=== PATIENT | male | born 1970 | race Two or more races ===

== ENCOUNTER 2020-07-07 12:45 | Outpatient (CLI) | payer MEDICARE, OTHER ==
[2020-07-07] MEDS ORDERED: COLLAGENASE 5 GM TUBE UD TP ONE (13:31)
== END 2020-07-07 23:59 | disposition home or self-care (01) ==
LOC: WOU 12:45
PROVIDERS: ATTEND Podiatrist Foot & Ankle Surgery
DX: E11.621 Type 2 diabetes mellitus with foot ulcer (principal); L97.513 Non-pressure chronic ulcer of other part of right foot with necrosis of muscle; E11.42 Type 2 diabetes mellitus with diabetic polyneuropathy; E11.69 Type 2 diabetes mellitus with other specified complication; M86.171 Other acute osteomyelitis, right ankle and foot; Z79.4 Long term (current) use of insulin
CPT/HCPCS: 11043; 11046; G0463

== ENCOUNTER 2020-07-14 12:30 | Outpatient (CLI) | payer MEDICARE, OTHER ==
[2020-07-14] MEDS ORDERED: COLLAGENASE 5 GM TUBE UD TP ONE (13:31)
== END 2020-07-14 23:59 | disposition home or self-care (01) ==
LOC: WOU 12:30
PROVIDERS: ATTEND Podiatrist Foot & Ankle Surgery
DX: E11.622 Type 2 diabetes mellitus with other skin ulcer (principal); L97.313 Non-pressure chronic ulcer of right ankle with necrosis of muscle; E11.621 Type 2 diabetes mellitus with foot ulcer; L97.413 Non-pressure chronic ulcer of right heel and midfoot with necrosis of muscle; E11.42 Type 2 diabetes mellitus with diabetic polyneuropathy; E11.69 Type 2 diabetes mellitus with other specified complication; M86.171 Other acute osteomyelitis, right ankle and foot; Z79.4 Long term (current) use of insulin
CPT/HCPCS: 11043; 11046; A6253

== ENCOUNTER 2020-07-21 13:30 | Outpatient (CLI) | payer MEDICARE, OTHER ==
[2020-07-21] MEDS ORDERED: COLLAGENASE 5 GM TUBE UD TP ONE (14:09)
[2020-07-21] MEDS ORDERED: DOCU-141 PO (16:42)
[2020-07-21] MEDS ORDERED: SITA100T PO (16:42)
[2020-07-21] MEDS ORDERED: METF-440 PO (16:42)
[2020-07-21] MEDS ORDERED: CHOL100045 PO (16:42)
[2020-07-21] MEDS ORDERED: PANT20TA2 PO (16:42)
[2020-07-21] MEDS ORDERED: ASCO500C17 PO (16:42)
[2020-07-22] MEDS ORDERED: INSU100V7 SQ (12:34)
[2020-07-22] MEDS ORDERED: EMPA10TA PO (12:34)
[2020-07-23] MEDS ORDERED: FENTANYL PF 100MCG/2ML AMPUL ONE (07:05)
[2020-07-27] MEDS ORDERED: Linezolid PO (12:43)
[2020-07-27] MEDS ORDERED: HYDR-3972 PO (12:43)
[2020-07-27] MEDS ORDERED: ACET325T53 PO (12:43)
[2020-07-27] MEDS ORDERED: PANT40TA2 PO (12:43)
== END 2020-07-21 23:59 | disposition home or self-care (01) ==
LOC: WOU 13:30
PROVIDERS: ATTEND Podiatrist Foot & Ankle Surgery
DX: E11.622 Type 2 diabetes mellitus with other skin ulcer (principal); L97.313 Non-pressure chronic ulcer of right ankle with necrosis of muscle; E11.621 Type 2 diabetes mellitus with foot ulcer; L97.413 Non-pressure chronic ulcer of right heel and midfoot with necrosis of muscle; E11.42 Type 2 diabetes mellitus with diabetic polyneuropathy; E11.69 Type 2 diabetes mellitus with other specified complication; M86.171 Other acute osteomyelitis, right ankle and foot; Z79.4 Long term (current) use of insulin; Z86.16 Personal history of COVID-19
CPT/HCPCS: 11042; 11045; J3010

== ENCOUNTER 2020-07-21 14:44 | Inpatient (IN) | payer MEDICARE, OTHER ==
[~2020-07-21] VITALS: Ht 170.2 cm; Wt 58.1 kg
[2020-07-21] MEDS ORDERED: VANCOMYCIN 1 GM in IV D5W 250 ML IV ONE (16:00)
[2020-07-21] MEDS ORDERED: CLINDAMYCIN 900 MG in IV D5W 50 ML IV ONE (16:00)
[2020-07-21 16:22] LABS: BASOPHILS # (AUTO) 0.1 /CMM (0.0-0.2); BASOPHILS % (AUTO) 0.7 % (0.0-2.0); EOSINOPHILS % (AUTO) 3.9 % (0.0-6.0); HEMATOCRIT 43 % (39-51); HEMOGLOBIN 14.4 g/dL (13.5-17.5); LYMPHOCYTES # (AUTO) 1.7 /CMM (0.8-4.8); LYMPHOCYTES % (AUTO) 21.7 % (20.0-44.0); MEAN CORPUSCULAR HGB CONC 34 g/dl (31.0-36.0); MEAN CORPUSCULAR VOLUME 84 fL (80-96); MONOCYTES # (AUTO) 0.5 /CMM (0.1-1.30); MONOCYTES % (AUTO) 6.7 % (2.0-12.0); NEUTROPHILS # (AUTO) 5.2 /CMM (1.8-8.9); PLATELET COUNT (AUTO) 367 /CMM (150-450); RED BLOOD CELL COUNT(AUTO) 5.08 MIL/uL (4.5-6.0); WHITE BLOOD COUNT (AUTO) 7.7 K/uL (4.3-11.0)
--- NOTE | 2020-07-21 16:32 | NUR ---
SENT BY DR. FOWLER WOUND MD FOR IV ATB AND WOUND BIOPSY. TO ER BED 7. AAOX4. NOT IN RESP DISTRESS. NOTED WOUND ON R FOOT DORSAL TO LATERAL ASPECT WITH RED GRANULATED TISSUE AND SLOUGH. NOTED PERIWOUND REDNESS. MD WAS AT THE BEDSIDE FOR EVAL. ORDERS RECEIVED, NOTED AND CARRIED OUT
[2020-07-21 16:41] LABS: ALANINE AMINOTRANSFERASE 27 U/L (12-78); ALBUMIN 3.6 g/dL (3.4-5.0); ALKALINE PHOSPHATASE 133 U/L (46-116); ASPARTATE AMINOTRANSFERASE 15 U/L (15-37); BILIRUBIN,DIRECT 0.1 mg/dL (0.0-0.2); BILIRUBIN,TOTAL 0.3 mg/dL (0.2-1.0); CALCIUM, SERUM 9.8 mg/dL (8.5-10.1); CARBON DIOXIDE 31 mmol/L (21-32); CHLORIDE 101 mmol/L (98-107); CREATININE 0.9 mg/dL (0.6-1.3); GLUCOSE 171 mg/dL (74-106); POTASSIUM 4.2 mmol/L (3.5-5.1); SODIUM SERUM 137 mmol/L (136-145); TOTAL PROTEIN, SERUM 8.8 g/dL (6.4-8.2); UREA NITROGEN, BLOOD 19 mg/dL (7-18)
[2020-07-21] MEDS ORDERED: CHOL100045 PO (16:42)
[2020-07-21] MEDS ORDERED: ASCO500C17 PO (16:42)
[2020-07-21] MEDS ORDERED: SITA100T PO (16:42)
[2020-07-21] MEDS ORDERED: METF-440 PO (16:42)
[2020-07-21] MEDS ORDERED: DOCU-141 PO (16:42)
[2020-07-21] MEDS ORDERED: PANT20TA2 PO (16:42)
[2020-07-21] MEDS: AZTREONAM 1 G in IV NS 0.9% 100 ML IV ONE ×2 (17:00→17:45)
--- NOTE | 2020-07-21 17:45 | NUR ---
LAB CALLED PT COVID RESULT NEGATIVE (-)
--- NOTE | 2020-07-21 18:15 | NUR ---
GOT BED 311-1
[2020-07-21] MEDS ORDERED: MAG HYDROX/AL HYDROX/SIMETH 30 ML UDC PO PRN (18:30)
[2020-07-21] MEDS ORDERED: MORPHINE SULFATE INJ 2 MG/ML DISP.SYRIN IV PRN (18:30)
[2020-07-21] MEDS ORDERED: MAGNESIUM HYDROXIDE 30 ML UDC PO PRN (18:30)
[2020-07-21] MEDS ORDERED: ACETAMINOPHEN 325 MG TABLET PO PRN (18:30)
[2020-07-21] MEDS ORDERED: HYDROCODONE/APAP 5/325MG TABLET PO PRN (18:30)
[2020-07-21] MEDS ORDERED: Z GUARD REMEDY 2 OZ OINT TP PRN (18:30)
[2020-07-21] MEDS ORDERED: ZOLPIDEM TARTRATE 5 MG TABLET PO PRN (18:30)
[2020-07-21] MEDS ORDERED: ONDANSETRON HCL/PF 4 MG/2 ML VIAL IVP PRN (18:30)
--- NOTE | 2020-07-21 18:35 | NUR ---
ROHAN GIVEN TO GABY ESTRADA FOR ROBERTO
--- NOTE | 2020-07-21 19:05 | NUR ---
MS RN OPENING NOTES: PATIENT ARRIVED ON THE FLOOR FROM ER, AWAKE, A/O X4. NO S/S OF DISTRESS NOTED. CALL LIGHT WITHIN REACH, INSTRUCTED TO CALL FOR ASSISTANCE AND ANY HELP, PATIENT VERBALIZED UNDERSTANDING. BED ALARM ON. BED IN LOWEST AND LOCKED POSITION. NO COMPLAIN OF PAIN. PATIENT REMOVED THE DRESSING ON THE RIGHT FOOT WOUND. WALKER PROVIDED AT THE BEDSIDE PER PATIENT'S REQUEST, INSTRUCTED THE PATIENT TO CALL FOR ASSISTANCE WHEN GETTING OUT OF BED TO THE BATHROOM, VERBALIZED UNDERSTANDING AND PATIENT STATES HE WILL CALL.
--- NOTE | 2020-07-21 19:09 | NUR ---
PT TRANSPORTED TO UNIT ON [facility] WITH EMT AT BEDSIDE. PT IS IN STABLE CONDITION FOR TRASNPORT.
[2020-07-21 20:00] VITALS: BP 115/75
[2020-07-22] MEDS ORDERED: ZOSYN IVPB 3.375 G in IV D5W 50ml IV SCH
[2020-07-22] MEDS: VANCOMYCIN 1 GM in IV D5W 250 ML IV SCH ×3 (04:45→12:17)
--- NOTE | 2020-07-22 05:09 | NUR ---
patient refused the vanco IV after it was started, advised patient the importance of the medication.
--- NOTE | 2020-07-22 06:20 | NUR ---
MS RN CLOSING NOTES: PATIENT IN BED, AWAKE, A/O X4. NO S/S OF DISTRESS NOTED. CALL LIGHT WITHIN REACH. BED ALARM ON. BED IN LOWEST AND LOCKED POSITION. RESTED THROUGHOUT THE NIGHT.
[2020-07-22 07:32] LABS: BASOPHILS % (AUTO) 0.7 % (0.0-2.0); EOSINOPHILS % (AUTO) 3.9 % (0.0-6.0); HEMATOCRIT 42 % (39-51); HEMOGLOBIN 14.2 g/dL (13.5-17.5); LYMPHOCYTES # (AUTO) 1.2 /CMM (0.8-4.8); LYMPHOCYTES % (AUTO) 17.1 % (20.0-44.0); MEAN CORPUSCULAR HGB CONC 34 g/dl (31.0-36.0); MEAN CORPUSCULAR VOLUME 82 fL (80-96); MONOCYTES # (AUTO) 0.5 /CMM (0.1-1.30); MONOCYTES % (AUTO) 6.3 % (2.0-12.0); NEUTROPHILS # (AUTO) 5.2 /CMM (1.8-8.9); PLATELET COUNT (AUTO) 308 /CMM (150-450); RED BLOOD CELL COUNT(AUTO) 5.13 MIL/uL (4.5-6.0); WHITE BLOOD COUNT (AUTO) 7.3 K/uL (4.3-11.0)
[2020-07-22 07:44] LABS: CALCIUM, SERUM 8.9 mg/dL (8.5-10.1); CREATININE 0.6 mg/dL (0.6-1.3); MAGNESIUM 2.1 mg/dL (1.8-2.4); PHOSPHORUS 4.5 mg/dL (2.5-4.9)
[2020-07-22 08:00] VITALS: BP 113/59
[2020-07-22 08:06] LABS: THYROID STIMULATING HORMONE 2.138 uIU/mL (0.358-3.74)
[2020-07-22] MEDS: PANTOPRAZOLE 40 MG TABLET.DR PO SCH (08:30)
[2020-07-22] MEDS: MUPIROCIN OINT 2% 22 GM TUBE TP SCH ×2 (08:59→21:17)
--- NOTE | 2020-07-22 10:43 | NUR ---
RECEIVED ORDERS FROM DR ALDANA FOR ACCU-CHEKS ACHS AND INSULIN MODERATE SLIDING SCALE. ORDERS READ BACK AND CARRIED OUT. WILL CONTINUE WITH PLAN OF CARE
[2020-07-22] MEDS ORDERED: DEXTROSE 50%-WATER 50 ML DISP.SYRIN IV PRN (11:00)
--- NOTE | 2020-07-22 11:22 | NUR ---
MS RN OPENING NOTES RECEIVED PT AWAKE IN BED AT THIS TIME. A/O X4, PT ABLE TO MAKE NEEDS KNOWN, NO SOB NOTED, BREATHING EVEN AND UNLABORED. NO C/O PAIN AT THIS TIME. NO S/O ANY ACUTE DISTRESS NOTED. PT STABLE ON RA. IV ACCESS NOTED IN LAC G#18, INTACT PATENT AND FLUSHING WELL. SAFETY PRECAUTION IN PLACE AND MAINTAINED AT ALL TIMES. BED IN LOWEST LOCKED POSITION, HOB ELEVATED, SIDE RAILS UPX2, CALL LIGHT AND TABLE WITHIN REACH. WILL CONTINUE TO MONITOR
[2020-07-22] MEDS ORDERED: BLOOD SUGAR DIAGNOSTIC 1 EACH STRIP VI SCH (12:00)
[2020-07-22] MEDS: BLOOD SUGAR DIAGNOSTIC 1 EACH STRIP IN SCH ×3 (12:17→21:14)
[2020-07-22] MEDS: INSULIN REGULAR, HUMAN 100 UNIT/ML 3 ML VIAL SQ PRN (12:22)
--- NOTE | 2020-07-22 12:26 | NUR ---
PT REFUSED VANCOMYCIN AFTER IT WAS CONSTITUTED STATING " I DO NOT LIKE HOW I FEEL AFTER TAKING VANCOMYCIN". PT EDUCATION PROVIDED ON THE BENEFITS AND RISK OF DENYING TREATMENT FOR MEDICAL PURPOSE. WILL CONTINUE TO MONITOR
[2020-07-22] MEDS ORDERED: INSU100V7 SQ (12:34)
[2020-07-22] MEDS ORDERED: EMPA10TA PO (12:34)
--- NOTE | 2020-07-22 15:07 | NUR ---
ARYAN ([phone]), PT'S SISTER CALLED AND WAS UPDATED ON PT'S STATUS, WILL CONTINUE TO MONITOR
--- NOTE | 2020-07-22 15:09 | NUR ---
PT NOTIFIED NURSE AT THIS TIME THAT WHEN HE TAKES VANCOMYCIN, IT CAUSES CHEST PAIN AND GENERALIZED BURNING SENSATION. DR ALDANA MADE AWARE, PHARMACY AWARE, AWAITING ORDERS. WILL CONTINUE TO MONITOR
[2020-07-22] MEDS: LINEZOLID 600 MG TABLET PO SCH ×2 (15:28→23:48)
--- NOTE | 2020-07-22 16:59 | NUR ---
ARYAN ([phone]), PT'S SISTER CALLED REQUESTING TO SPEAK WITH DR ALADNA FOR INFECTIOUS DISEASE FOLLOW UP, DR ALDANA MADE AWARE. WILL CONTINUE TO MONITOR
[2020-07-22] MEDS: *INSULIN REGULAR(HUMULIN R)HUM 100 UNIT/ML VIAL SQ PRN ×2 (17:55→21:27)
--- NOTE | 2020-07-22 18:47 | NUR ---
RN CLOSING NOTES PT AWAKE IN BED AT THIS TIME. PT REMAINED STABLE THROUGHOUT SHIFT. ALL CARE, NEEDS, MEDICATIONS AND TREATMENT ADMINISTERED ANTICIPATED PER ORDER. WOUND TREATMENT ADMINISTERED PER ORDER. PT MOTIVATED TO SELF CARE. SAFETY AND ASPIRATION PRECAUTIONS MAINTAINED AT ALL TIMES. BED IN LOWEST LOCKED POSITION, HOB ELEVATED, SIDE RAILS UPX2, CALL LIGHT AND TABLE WITHIN REACH. WILL ENDORSE TO GI ASST NURSE FOR ROBERTO
--- NOTE | 2020-07-22 19:30 | NUR ---
MS RN OPENING NOTE RECEIVED PATIENT IN BED. A/OX4. TOLERATING ROOM AIR. RESPIRATIONS ARE EVEN AND UNLABORED. NO S/S SOB NOTED. NO C/O PAIN AT THIS TIME. IN NO APPARENT DISTRESS. IV ACCESS IN LAC#18 PATENT AND SALINE LOCKED. INFORMED PATIENT ABOUT PROCEDURE FOR DEBRIDEMENT, OBTAINED SIGNED CONSENTS. BED IS LOW AND LOCKED, HOB ELEVATED IN SEMI FOWLERS, SIDE RAILS UP X2, CALL LIGHT WITHIN REACH. WILL CONTINUE TO MONITOR.
[2020-07-22 20:00] VITALS: BP 109/64
--- NOTE | 2020-07-23 | NUR ---
MS RN NOTE INFORMED PATIENT THEY ARE NOW NPO. REMOVED ALL FOOD AND DRINK FROM BED SIDE. PATIENT ACKNOWLEDGED.
[2020-07-23] MEDS: BLOOD SUGAR DIAGNOSTIC 1 EACH STRIP IN SCH ×4 (06:24→21:45)
--- NOTE | 2020-07-23 06:25 | NUR ---
ms rn note patient accucheck reads bloos sugar 253 - no insulin coverage given d/t patient npo for surgery this morning. will inform SERVICE CREW LEADER
[2020-07-23] MEDS ORDERED: BUPIVACAINE 0.5 % PF 150 MG/30 ML VIAL ONE (06:28)
[2020-07-23] MEDS ORDERED: LIDOCAINE HCL/MPF 1% 30 ML VIAL IJ ONE (06:28)
[2020-07-23] MEDS ORDERED: ANESTHESIA TRAY IN PYXIS 1 EA TRAY MC ONE (06:28)
--- NOTE | 2020-07-23 06:42 | NUR ---
MS RN CLOSING NOTE PATIENT RESTING IN BED. A/OX4. TOLERATING ROOM AIR. NO RESP DISTRESS. NO C/O PAIN. NO DISTRESS. IV ACCESS MAINTAINED IN LAC#18. BED REMAINS LOW AND LOCKED, HOB ELEVATED IN SEMI FOWLERS, SIDE RAILS UP X2, CALL LIGHT WITHIN REACH. WILL ENDORSE TO ONCOMING SHIFT.
--- NOTE | 2020-07-23 06:47 | NUR ---
MS RN NOTE PER ANESTHESIOLOGIST RICHIE WEN, INFORMED HIM PATIENTS BLOOD SUGAR IS 253 AND PER SLIDING SCALE PATIENT WOULD RECEIVE 9 UNITS. ANESTHESIOLOGIST STATED TO GIVE 5 UNITS NOW AND DO NOT LET PATIENT EAT. HAVE O.R. STAFF TAKE PATIENT TO OR AND THEY WILL REASSESS BLOOD SUGAR IN ONE HOUR.
[2020-07-23] MEDS: INSULIN REGULAR, HUMAN 100 UNIT/ML 3 ML VIAL SQ PRN ×3 (06:52→21:53)
--- NOTE | 2020-07-23 06:55 | NUR ---
MS RN NOTE PATIENT WENT DOWN TO SURGERY WITH OR STAFF. A/OX4. TOLERATING ROOM AIR. NO RESP DISTRESS. IV ACCESS IN LAC#20 PATENT AND SALINE LOCKED. WILL ENDORSE TO ONCOMING SHIFT.
[2020-07-23] MEDS ORDERED: POLYMYXIN B SULFATE 0 UNITS ONE (07:20)
[2020-07-23] MEDS ORDERED: CLINDAMYCIN 900 MG/6 ML VIAL ONE (07:22)
[2020-07-23] MEDS: PANTOPRAZOLE 40 MG TABLET.DR PO SCH (07:30)
[2020-07-23 08:00] VITALS: BP 116/81
[2020-07-23 08:48] VITALS: BP 116/81
--- NOTE | 2020-07-23 08:48 | NUR ---
MS RN NOTES PATIENT CAME BACK FROM OPERATING REPORT GIVEN BY MAX GRIFFIN , NO ACUTE DISTRESS NOTED, BREATHING UNLABORED, VITAL SIGNS STABLE. DENIED PAIN AT THIS TIME. ALERT ORIENTED X 4. RIGHT LOWER EXTREMITY SURGICAL DRESSING WITH ADELE WRAP CLEAN, DRY AND INTACT. WILL CONTINUE TO MONITOR
--- NOTE | 2020-07-23 08:49 | NUR ---
MS RN NOTES RECEIVED NEW ORDER FROM BERNADETTE PATEL TO RESUME MEDECATIONS/DIET, LEAVE DRESSING INTACT,NON WEIGHT BEARING ON RIGHT LOWER EXTREMITY, ORDER TIFFANY READ BACK WITH MD, NOTED CARRIED OUT
[2020-07-23 09:03] VITALS: BP 122/76
[2020-07-23 09:18] VITALS: BP 133/75
--- NOTE | 2020-07-23 09:49 | NUR ---
MS RN NOTES PATIENT VITAL SIGNS REMAIN STABLE. WILL CONTINUE TO MONITOR
[2020-07-23] MEDS: LINEZOLID 600 MG TABLET PO SCH ×2 (09:59→21:44)
[2020-07-23] MEDS: MUPIROCIN OINT 2% 22 GM TUBE TP SCH ×2 (09:59→21:00)
--- NOTE | 2020-07-23 10:00 | NUR ---
MS RN NOTES NOTIFIED DR YORK MEDICATION RECONCILIATION NEEDS DONE
[2020-07-23] MEDS ORDERED: CIPROFLOXACIN HCL 500 MG TABLET PO SCH (14:00)
--- NOTE | 2020-07-23 15:12 | NUR ---
MS RN NOTES PER PATIENT LAST TIME HE TOOK FLAGYL BY MOUTH HE HAD DIARRHEA AND UPSET STOMACH, NOTIFIED DR NIKKI DIAS SAID IT'S OK TO GIVE FLAGYL IV. NO NEW ORDER MADE AT THIS TIME. TOLD PATIENT WHAT DR DIAS SAID, HE AGREED TO TAKE FLAGYL IV.
[2020-07-23] MEDS: METRONIDAZOLE 500MG/ NS 100ML 500 MG in PREMIX 1 EA IV SCH ×2 (15:25→21:00)
[2020-07-23 16:00] VITALS: BP 120/74
--- NOTE | 2020-07-23 16:00 | NUR ---
MS RN NOTES FOLLOW UP WITH DR YORK RECARDING MEDICATION RECONCILIATION NEEDS DONE , MENTIONED PATIENT ON DIABETIC MEDICATIONS, SHE SAID SHE WILL DO IT.
[2020-07-23] MEDS: LEVOFLOXACIN 500 MG /D5W 100ML 500 MG in PREMIX 1 EA IV SCH (16:42)
[2020-07-23] MEDS: *INSULIN REGULAR(HUMULIN R)HUM 100 UNIT/ML VIAL SQ PRN ×2 (18:02→22:05)
--- NOTE | 2020-07-23 18:02 | NUR ---
MS RN NOTES PATIENT REFUSED INSULIN DESPITE OF EXPLANATION OF RISKS AND BENEFITS
--- NOTE | 2020-07-23 18:30 | NUR ---
MS RN NOTES NO DIARRHEA NOTED AND NO COMPLAINT OF ANY PAIN OR STOMACH PAIN.
--- NOTE | 2020-07-23 19:00 | NUR ---
MS RN NOTES PATIENT IN BED ALERT ORIENTED X 4. NO ACUTE DISTRESS NOTED. BREATHING UNLABORED. DENIED ANY PAIN. VITAL SIGN STABLE THROUGHOUT THE SHIFT. REMAIN IV ACCESS PATENT AND INTACT, NO BLEEDING . NO SWELLING NOTED. RIGHT LOWER EXTREMITY DRESSING CLEAN DRY AND INTACT . NEEDS ATTENDED AND ANTICIPATED. SAFETY MEASURES IN PLACE. CALL LIGHT WITHIN REACH. WILL ENDORSE TO NIGHT NURSE FOR CONTINUITY OF CARE.
--- NOTE | 2020-07-23 19:30 | NUR ---
MS RN OPENING NOTE RECEIVED PATIENT IN BED. A/OX4. TOLERATING ROOM AIR. RESPIRATIONS ARE EVEN AND UNLABORED. NO S/S SOB NOTED. NO C/O PAIN AT THIS TIME. IN NO APPARENT DISTRESS. IV ACCESS IN LAC#18 PATENT AND SALINE LOCKED. BED IS LOW AND LOCKED, HOB ELEVATED IN SEMI FOWLERS, SIDE RAILS UP X2, CALL LIGHT WITHIN REACH. WILL CONTINUE TO MONITOR.
--- NOTE | 2020-07-23 19:55 | NUR ---
MS RN NOTE SPOKE WITH PATIENT SISTER ARYAN ABOUT PATIENT MEDICATIONS, CURRENT MEDS AND ABOUT MEDICATION RECON. RN YOSELIN SCOTT AWARE OF FAMILYS UNSATISFIED. DR. ALDANA MADE AWARE TO COMPLETE MED RECON. ED RCON COMPLETED. FAMILY DOES WISH TO SPEAK WITH INFECTIOUS DISEASE DOCTOR. WILL INFORM MORNING SHIFT.
[2020-07-23 20:00] VITALS: BP 119/74
[2020-07-23] MEDS: INSULIN GLARGINE, 100 UNIT/ML CARTRIDGE SQ SCH (21:52)
--- NOTE | 2020-07-23 21:54 | NUR ---
MS RN NOTE PATIENT REFUSED FLAGYL TONIGHT. STATES IT GIVES HIM DIARRHEA. DOES NOT WANT IT TO BE ADMINISTERED AND WANTS TO SPEAK WITH THE INFECTIOUS DISEASE DOCTOR. WILL INFORM AM SHIFT THAT PATIENT WANTS TO SPEAK WITH ID. WAS NOT BRII TO ADMINISTER BACTROBAN TOPICAL TREATMENT FOR PATIENTS HEEL WOUND. PATIENT IS S/P WOUND DEBRIDEMENT AND MD ORDER TO KEEP DRESSING INTACT.
--- NOTE | 2020-07-23 22:06 | NUR ---
MS RN NOTE PATIENT REFUSED 6 UNITS REGULAR INSULIN FOR BLOOD SUGAR 234. HE STATES THAT HE ONLY WANTS TO FOLLOW WHAT HIS DIABETIC DOCTOR PRESCRIBED HIM WHICH IS TO ONLY TAKE 6 UNITS IN THE MORNING, 6 UNITS AT DINNER AND 25 UNITS LANTUS. HE ALSO TAKES METFORMIN. INFORMED IM ABOUT SLIDING SCALE BUT PATIENT WISHES TO SPEAK WITH DOCTOR. WILL INFORM AM SHIFT.
[2020-07-24] MEDS: METRONIDAZOLE 500MG/ NS 100ML 500 MG in PREMIX 1 EA IV SCH ×3 (05:00→21:00)
--- NOTE | 2020-07-24 06:02 | NUR ---
MS RN CLOSING NOTE PATIENT RESTING IN BED. A/OX4. REMAINS TOLERATING ROOM AIR. NO RESP DISTRESS. NO PAIN. NO DISTRESS. IV ACCESS MAINTAINED IN LAC#18. BED REMAINS LOW AND LOCKED, HOB ELEVATED IN SEMI FOWLERS, SIDE RAILS UP X2, CALL LIGHT WITHIN REACH. PATIENT WISHES TO SPEAK WIH THE DAY PROVIDER WELL INFECTIOUS DISEASE DOCTOR. HE ALSO REFUSED AM LABS AND WANTS TO SPEAK WTH THE PROVIDERS FIRST.WILL ENDORSE TO ONCOMING SHIFT.
[2020-07-24] MEDS: BLOOD SUGAR DIAGNOSTIC 1 EACH STRIP IN SCH ×4 (06:13→21:16)
--- NOTE | 2020-07-24 06:14 | NUR ---
MS RN NOTE ACCUCHECK READ BS 198 - PATIENT REFUSING INSULIN TO BE GIVEN AT THIS TIME. STATES WANTS TO SEE WHAT IS FOR BREAKFAST
--- NOTE | 2020-07-24 07:48 | NUR ---
MS RN OPENING NOTES RECEIVED PATIENT IN BED, ASLEEP. PATIENT ON ROOM AIR; BREATHING EVEN AND UNLABORED, NO SOB NOTED AT THIS TIME. NO S/S OF PAIN SUCH FACIAL GRIMACING, MOANING OR GUARDING. IV ACCESS AT RAC G # 20; SL. SAFETY PRECAUTIONS IN PLACE; BED IN LOCKED POSITION AND LOCKED, RAILS UP X2, CALL LIGHT WITHIN REACH. WILL CONTINUE TO MONITOR PATIENT.
[2020-07-24 08:00] VITALS: BP 130/76
[2020-07-24] MEDS: MUPIROCIN OINT 2% 22 GM TUBE TP SCH ×2 (08:51→21:00)
[2020-07-24] MEDS: CHOLECALCIFEROL 1,000 UNIT TABLET (VIT D3) PO SCH ×2 (08:55→16:46)
[2020-07-24] MEDS: ASCORBIC ACID 500 MG TABLET PO SCH ×2 (08:55→16:46)
[2020-07-24] MEDS: LINEZOLID 600 MG TABLET PO SCH ×2 (08:55→21:19)
[2020-07-24] MEDS: DOCUSATE SODIUM 100 MG CAPSULE PO SCH ×2 (08:55→16:26)
[2020-07-24] MEDS: PANTOPRAZOLE 40 MG TABLET.DR PO SCH (08:55)
[2020-07-24 10:02] LABS: BASOPHILS % (AUTO) 0.5 % (0.0-2.0); EOSINOPHILS % (AUTO) 3.1 % (0.0-6.0); HEMATOCRIT 41 % (39-51); HEMOGLOBIN 13.6 g/dL (13.5-17.5); LYMPHOCYTES # (AUTO) 1.4 /CMM (0.8-4.8); LYMPHOCYTES % (AUTO) 21.8 % (20.0-44.0); MEAN CORPUSCULAR HGB CONC 33 g/dl (31.0-36.0); MEAN CORPUSCULAR VOLUME 83 fL (80-96); MONOCYTES # (AUTO) 0.5 /CMM (0.1-1.30); NEUTROPHILS # (AUTO) 4.4 /CMM (1.8-8.9); NEUTROPHILS % (AUTO) 67.6 % (43.0-81.0); PLATELET COUNT (AUTO) 275 /CMM (150-450); RED BLOOD CELL COUNT(AUTO) 4.91 MIL/uL (4.5-6.0); WHITE BLOOD COUNT (AUTO) 6.5 K/uL (4.3-11.0)
[2020-07-24 10:18] LABS: CALCIUM, SERUM 8.9 mg/dL (8.5-10.1); CREATININE 0.8 mg/dL (0.6-1.3); MAGNESIUM 2.1 mg/dL (1.8-2.4); PHOSPHORUS 3.1 mg/dL (2.5-4.9); POTASSIUM 4.3 mmol/L (3.5-5.1)
[2020-07-24] MEDS: INSULIN REGULAR, HUMAN 100 UNIT/ML 3 ML VIAL SQ PRN (12:23)
[2020-07-24] MEDS: LEVOFLOXACIN 500 MG /D5W 100ML 500 MG in PREMIX 1 EA IV SCH (14:20)
[2020-07-24 16:00] VITALS: BP 132/84
[2020-07-24] MEDS: METFORMIN 500 MG TABLET PO SCH (16:46)
[2020-07-24] MEDS: INSULIN ASPART/LISPRO 100 UNIT/ML CARTRIDGE SQ SCH (17:00)
--- NOTE | 2020-07-24 18:57 | NUR ---
MS RN CLOSING NOTES PATIENT REMAINS IN BED, AWAKE, WATCHING TV, A/O X4. PATIENT ON ROOM AIR; BREATHING EVEN AND UNLABORED, NO SOB NOTED DURING SHIFT. NO COMPLAINS OF PAIN. IV ACCESS AT [facility] # 20; SL. ALL NEEDS ATTENDED THROUGHOUT THE DAY. SAFETY PRECAUTIONS IN PLACE; BED IN LOCKED POSITION AND LOCKED, RAILS UP X2, CALL LIGHT WITHIN REACH. WILL ENDORSE TO LOAN OPERATIONS SPECIALIST NURSE.
--- NOTE | 2020-07-24 19:30 | NUR ---
MS RN OPENING NOTE PATIENT IN BED. A/OX4. TOLERATING ROOM AIR. NO RESP DISTRESS. NO C/O PAIN AT THIS TIME. NO DISTRESS NOTED. IV ACCESS IN RAC#20 PATENT AND SALINE LOCKED. BED IS LOW AND LOCKED, HOB ELEVATED IN SEMI FOWLERS, SIDE RAILS UP X2, CALL LIGHT WITHIN REACH. PATIENT STILL WANTS TO SPEAK WITH ID AND THE SURGEON. WILL CONTINUE TO MONITOR THROUGHOUT SHIFT.
[2020-07-24 20:00] VITALS: BP 117/94
[2020-07-24] MEDS: INSULIN GLARGINE, 100 UNIT/ML CARTRIDGE SQ SCH (21:25)
[2020-07-24] MEDS: *INSULIN REGULAR(HUMULIN R)HUM 100 UNIT/ML VIAL SQ PRN (21:26)
--- NOTE | 2020-07-24 21:32 | NUR ---
MS RN NOTE PATIENT REFUSED FLAGYYL, STILL WAITING TO SPEAK WITH ID DR. VICKY DIAS RN, MD ALREADY AWARE. DID NOT APPLY BACTROBAN TO WOUND , ORDER STATES KEEP DRESSING INTACT. PATIENT IS ALSO AWAITING DR. MONTES.
[2020-07-25] MEDS: METRONIDAZOLE 500MG/ NS 100ML 500 MG in PREMIX 1 EA IV SCH (04:16)
--- NOTE | 2020-07-25 04:16 | NUR ---
MS RN NOTE PATIENT REFUSES FLAGYL. WISHES TO SPEAK WITH ID DR. DIAS.
[2020-07-25] MEDS: PANTOPRAZOLE 40 MG TABLET.DR PO SCH (06:31)
[2020-07-25] MEDS: BLOOD SUGAR DIAGNOSTIC 1 EACH STRIP IN SCH ×5 (06:31→22:10)
--- NOTE | 2020-07-25 06:32 | NUR ---
ms rn note patient refused am accucheck and refused am labs.
--- NOTE | 2020-07-25 06:46 | NUR ---
MS RN CLOSING NOTE PATIENT RESTING IN BED. A/OX4. TOLERATING ROOM AIR. NO RESP DISTRESS. NO C/O PAIN. NO DISTRESS. IV ACCESS IN RAC#20. BED LOW AND LOCKED, HOB ELEVATED IN SEMI FOWLERS, SIDE RAILS UP X2, CALL LIGHT WITHIN REACH. PATIENT WANTS TO SPEAK WITH ID MD DR. DIAS AND DR. NINO. WILL CONTINUE TO MONITOR THROUGHOUT SHIFT. Addendum: 07/25/20 at 0651 by JOSÉ MANUEL TRAMMELL RN WILL ENDORSE TO ONCOMING SHIFT.
--- NOTE | 2020-07-25 08:12 | NUR ---
RN OPENING NOTE PT AWAKE IN BED WATCHING TELEVISION. A/O X3 AND PORTUGUES[place] SPEAKING. NO COMPLAINT OF PAIN OR NAUSEA. ON ROOM AIR WITH NO SOB OR RESPIRATORY DISTRESS PRESENT. WOUND PRESENT ON R HEEL. NO EDEMA PRESENT. AMBULATORY WITH ASSIST. BATHROOM PRIVILEGES. NO HL PRESENT DUE TO BEING PULLED OUT BY PATIENT. WILL ATTEMPT TO INSERT NEW IV. SAFETY MEASURES IN PLACE. SIDE RAILS RAISED. BED LOWERED. CALL LIGHT WITHIN REACH. WILL CONTINUE TO MONITOR.
[2020-07-25 08:55] VITALS: BP 128/74
[2020-07-25] MEDS: METFORMIN 500 MG TABLET PO SCH ×2 (09:26→17:06)
[2020-07-25] MEDS: LINEZOLID 600 MG TABLET PO SCH ×2 (09:26→22:10)
[2020-07-25] MEDS: ASCORBIC ACID 500 MG TABLET PO SCH ×2 (09:26→17:06)
[2020-07-25] MEDS: DOCUSATE SODIUM 100 MG CAPSULE PO SCH ×2 (09:26→17:00)
[2020-07-25] MEDS: CHOLECALCIFEROL 1,000 UNIT TABLET (VIT D3) PO SCH ×2 (09:26→17:06)
[2020-07-25] MEDS: MUPIROCIN OINT 2% 22 GM TUBE TP SCH ×2 (09:27→22:10)
[2020-07-25] MEDS: INSULIN ASPART/LISPRO 100 UNIT/ML CARTRIDGE SQ SCH ×2 (09:48→17:19)
--- NOTE | 2020-07-25 11:54 | NUR ---
RN INSULIN NOTE PATIENT REFUSED 1200 LUNCHTIME INSULIN. EDUCATED ON THE RISKS AND BENEFITS OF DOING SO. BLOOD SUGAR OF 156. WILL CONTINUE TO MONITOR.
--- NOTE | 2020-07-25 12:35 | NUR ---
RN IV NOTE PT IV IN R AC PULLED OUT. CATHETER IS INTACT. PATIENT REFUSE NEW IV INSERTION. ALL CURRENT MEDICATIONS ARE PO. HISTORY OF DM WITH [facility] INSULIN PROTOCOL. WILL CONTINUE TO MONITOR.
[2020-07-25] MEDS: METRONIDAZOLE 500 MG TABLET PO SCH ×2 (14:10→21:00)
[2020-07-25] MEDS: LEVOFLOXACIN (250MG) 250 MG TABLET PO SCH (14:10)
[2020-07-25 16:09] VITALS: BP 120/78
[2020-07-25] MEDS: INSULIN REGULAR, HUMAN 100 UNIT/ML 3 ML VIAL SQ PRN (17:18)
--- NOTE | 2020-07-25 18:32 | NUR ---
RN CLOSING NOTE PT AWAKE IN BED WATCHING TELEVISION. A/O X3 AND LUX[place]BOURG[place] SPEAKING. NO COMPLAINT OF PAIN OR NAUSEA. ON ROOM AIR WITH NO SOB OR RESPIRATORY DISTRESS PRESENT. WOUND PRESENT ON R HEEL. NO EDEMA PRESENT. AMBULATORY WITH ASSIST. BATHROOM PRIVILEGES. NO HL PRESENT AND REFUSED BY PATIENT. CHARGE NURSE AWARE. ROUTINE MEDS GIVEN. SAFETY MEASURES IN PLACE. SIDE RAILS RAISED. BED LOWERED. CALL LIGHT WITHIN REACH. REPORT TO BE GIVEN TO NIGHT NURSE FOR ROBERTO.
--- NOTE | 2020-07-25 19:30 | NUR ---
MS/RN OPENING NOTE RECEIVED PATIENT RESTING IN BED. AWAKE, ALERT AND ORIENTED X 3. ABLE TO MAKE NEEDS KNOWN. NO COMPLAINTS OF PAIN AT THIS TIME. CONTINUES ON PO ABX. NO ACCESS DUE TO PATIENT REFUSING. DRESSING TO RIGHT HEEL CLEAN, DRY AND INTACT. CALL LIGHT WITHIN REACH. ASPIRATION, FALL AND SAFETY PRECAUTIONS MAINTAINED. WILL CONTINUE TO MONITOR.
[2020-07-25 20:00] VITALS: BP 117/61
[2020-07-25] MEDS: INSULIN GLARGINE, 100 UNIT/ML CARTRIDGE SQ SCH (22:00)
--- NOTE | 2020-07-25 22:15 | NUR ---
MS/RN NOTE PATIENT REFUSED BLOOD GLUCOSE CHECK, LANTUS INSULIN AND PO FLAGYL. EDUCATED PATIENT ON IMPORTANCE OF MEDICATIONS WITH PATIENT CONTINUING TO REFUSE. WILL CONTINUE TO MONITOR.
[2020-07-26] VITALS: BP 116/74
[2020-07-26] MEDS: METRONIDAZOLE 500 MG TABLET PO SCH ×3 (04:31→21:00)
--- NOTE | 2020-07-26 06:00 | NUR ---
MS/RN CLOSING NOTE PATIENT CURRENTLY SLEEPING IN BED. AWAKE, ALERT AND ORIENTED X 3. ABLE TO MAKE NEEDS KNOWN. NO COMPLAINTS OF PAIN AT THIS TIME. CONTINUES ON PO ABX. PATIENT CONTINUING TO REFUSE FLAGYL. MD AWARE. PATIENT REFUSED BLOOD GLUCOSE CHECK THIS AM. EDUCATED PATIENT ON IMPORTANCE OF MONITORING BLOOD SUGARS WITH PATIENT CONTINUING TO REFUSE. NO IV ACCESS DUE TO PATIENT REFUSING. DRESSING TO RIGHT HEEL CLEAN, DRY AND INTACT. CALL LIGHT WITHIN REACH. ASPIRATION, FALL AND SAFETY PRECAUTIONS MAINTAINED. WILL ENDORSE PLAN OF CARE TO ONCOMING SHIFT.
[2020-07-26] MEDS: BLOOD SUGAR DIAGNOSTIC 1 EACH STRIP IN SCH ×4 (06:31→22:00)
--- NOTE | 2020-07-26 07:20 | NUR ---
MS RN OPENING NOTES PATIENT IN BED RESTING, ALERT & ORIENTED X 4. NO ACUTE DISTRESS NOTED. BREATHING UNLABORED. DENIED ANY PAIN. RIGHT LOWER EXTREMITY DRESSING CLEAN DRY AND INTACT . SAFETY MEASURES IN PLACE. CALL LIGHT WITHIN REACH. WILL CONTINUE TO MONITOR
[2020-07-26] MEDS: PANTOPRAZOLE 40 MG TABLET.DR PO SCH (07:44)
--- NOTE | 2020-07-26 07:58 | NUR ---
SANDSTONE INSPECTOR REPAIRER RIGHT FOOT TREATMENT ORDERS CLARIFIED WITH DPM DR MONTES. ALL DISCUSSED WITH PRIMARY RN.
[2020-07-26 08:15] VITALS: BP 112/72
[2020-07-26] MEDS: DOCUSATE SODIUM 100 MG CAPSULE PO SCH ×2 (09:00→17:00)
[2020-07-26] MEDS: CHOLECALCIFEROL 1,000 UNIT TABLET (VIT D3) PO SCH ×2 (09:41→17:39)
[2020-07-26] MEDS: ASCORBIC ACID 500 MG TABLET PO SCH ×2 (09:41→17:39)
[2020-07-26] MEDS: METFORMIN 500 MG TABLET PO SCH ×2 (09:42→17:39)
[2020-07-26] MEDS: LINEZOLID 600 MG TABLET PO SCH ×2 (09:42→21:12)
[2020-07-26] MEDS: INSULIN ASPART/LISPRO 100 UNIT/ML CARTRIDGE SQ SCH ×3 (09:45→17:49)
--- NOTE | 2020-07-26 11:39 | NUR ---
MS RN NOTE PATIENT REFUSED ACCU CHECK DESPITE EXPLANATION OF RISKS/BENEFITS. VERBALIZED UNDERSTANDING
--- NOTE | 2020-07-26 13:21 | NUR ---
MS RN NOTE PATIENT REFUSED FLAGYL DESPITE EXPLANATION OF RISKS/BENEFITS. VERBALIZED UNDERSTANDING
--- NOTE | 2020-07-26 14:21 | NUR ---
MS RN NOTE PATIENT SEEN AND EVALUATED BY DR. YORK NOTIFIED REGARDING PATIENT REFUSING TO TAKE FLAGYL AND REFUSED SOME ACCU CHECKS AND REGULAR INSULIN TAKEN. NO NEW ORDERS MADE AT THIS TIME. PER DR. ALDANA PATIENT FOR CONSULT WITH DR. SCOTT FOR ARTERIAL ULTRASOUND. MD NOTIFIED DR. SCOTT
[2020-07-26] MEDS: LEVOFLOXACIN (250MG) 250 MG TABLET PO SCH (15:02)
[2020-07-26 16:24] VITALS: BP 112/72
--- NOTE | 2020-07-26 17:54 | NUR ---
MS RN NOTE PATIENT REFUSED HUMALOG DESPITE EXPLANATION OF RISKS/BENEFITS. VERBALIZED UNDERSTANDING
--- NOTE | 2020-07-26 18:54 | NUR ---
MS RN CLOSING NOTES PATIENT RESTING IN BED. NO ACUTE DISTRESS NOTED OR REPORTED. NO PAIN OR DISCOMFORT NOTED AT THIS TIME. DRESSING IN RLE CLEAN, DRY AND INTACT. SAFETY PRECAUTIONS IN PLACE. BED IN LOWEST LOCKED POSITION. CALL LIGHT WITHIN REACH, BED ALARMS ON AND SAFETY PRECAUTIONS IN PLACE. WILL ENDORSE TO SECURITY ENGINEER NURSE FOR CONTINUITY OF CARE.
--- NOTE | 2020-07-26 19:20 | NUR ---
MS/RN OPENING NOTE RECEIVED PATIENT RESTING IN BED. AWAKE, ALERT AND ORIENTED X 3. ABLE TO MAKE NEEDS KNOWN. NO COMPLAINTS OF PAIN AT THIS TIME. NO IV ACCESS NOTED. DRESSING TO RLE CLEAN, DRY AND INTACT. BLE ARTERIAL DOPPLER RESULTS NEGATIVE. CONTINUES ON PO ABX. CALL LIGHT WITHIN REACH. ASPIRATION, FALL AND SAFETY PRECAUTIONS MAINTAINED. WILL CONTINUE TO MONITOR.
[2020-07-26 20:00] VITALS: BP 119/80
[2020-07-26] MEDS: INSULIN GLARGINE, 100 UNIT/ML CARTRIDGE SQ SCH (22:00)
--- NOTE | 2020-07-26 22:30 | NUR ---
MS/RN NOTE PATIENT REFUSED BLOOD GLUCOSE CHECK, LANTUS AND FLAGYL TONIGHT. EDUCATED PATIENT ON IMPORTANCE OF THESE INTERVENTIONS WITH PATIENT CONTINUING TO REFUSE X 3 ATTEMPTS. WILL CONTINUE TO MONITOR.
[2020-07-27] MEDS: METRONIDAZOLE 500 MG TABLET PO SCH ×2 (04:48→13:00)
--- NOTE | 2020-07-27 06:10 | NUR ---
MS/RN CLOSING NOTE PATIENT CURRENTLY RESTING IN BED. AWAKE, ALERT AND ORIENTED X 3. ABLE TO MAKE NEEDS KNOWN. NO COMPLAINTS OF PAIN AT THIS TIME. NO IV ACCESS NOTED. DRESSING TO RLE CLEAN, DRY AND INTACT. CONTINUES ON PO ABX. BLOOD GLUCOSE THIS AM WAS 227. PATIENT REFUSING INSULIN AT THIS TIME. WILL ENDORSE TO ONCOMING RN. CALL LIGHT WITHIN REACH. ASPIRATION, FALL AND SAFETY PRECAUTIONS MAINTAINED. WILL ENDORSE PLAN OF CARE TO ONCOMING SHIFT.
[2020-07-27] MEDS: BLOOD SUGAR DIAGNOSTIC 1 EACH STRIP IN SCH ×2 (06:31→11:55)
--- NOTE | 2020-07-27 07:30 | NUR ---
MS RN OPENING NOTES PATIENT IN BED SLEEPING, EASILY AWAKENED. NO ACUTE DISTRESS NOTED. BREATHING UNLABORED. DENIED ANY PAIN. RIGHT LOWER EXTREMITY DRESSING CLEAN DRY AND INTACT . SAFETY MEASURES IN PLACE. CALL LIGHT WITHIN REACH. WILL CONTINUE TO MONITOR
[2020-07-27] MEDS: PANTOPRAZOLE 40 MG TABLET.DR PO SCH (07:52)
[2020-07-27 08:00] VITALS: BP 113/65
[2020-07-27] MEDS: CHOLECALCIFEROL 1,000 UNIT TABLET (VIT D3) PO SCH (09:00)
[2020-07-27] MEDS: DOCUSATE SODIUM 100 MG CAPSULE PO SCH (09:00)
[2020-07-27] MEDS: ASCORBIC ACID 500 MG TABLET PO SCH (09:00)
[2020-07-27] MEDS: INSULIN ASPART/LISPRO 100 UNIT/ML CARTRIDGE SQ SCH (09:00)
[2020-07-27] MEDS: METFORMIN 500 MG TABLET PO SCH (09:45)
[2020-07-27] MEDS: LINEZOLID 600 MG TABLET PO SCH (09:45)
--- NOTE | 2020-07-27 09:50 | NUR ---
MS RN NOTE PATIENT REFUSED COLACE, VITAMIN C, VITAMIN D3, ACCU CHECK AND HUMALOG DESPITE EXPLANATION OF RISKS/BENEFITS. VERBALIZED UNDERSTANDING
--- NOTE | 2020-07-27 11:00 | NUR ---
MS RN NOTE PATIENT SEEN AND EVALUATED BY GERALD ADDISON NP, MADE AWARE PATIENT HAS BEEN REFUSING SOME MEDICATIONS, ACCU CHECK, INSULIN, FLAGYL, LAB DRAWS AND IV INSERTION.
--- NOTE | 2020-07-27 11:55 | NUR ---
MS RN NOTE PATIENT REFUSED ACCU CHECK AND INSULIN DESPITE EXPLANATION OF RISKS/BENEFITS. VERBALIZED UNDERSTANDING
[2020-07-27] MEDS ORDERED: PANT40TA2 PO (12:43)
[2020-07-27] MEDS ORDERED: Linezolid PO (12:43)
[2020-07-27] MEDS ORDERED: ACET325T53 PO (12:43)
[2020-07-27] MEDS ORDERED: HYDR-3972 PO (12:43)
--- NOTE | 2020-07-27 13:28 | NUR ---
MS RN NOTE PATIENT REFUSED FLAGYL DESPITE EXPLANATION OF RISKS/BENEFITS. VERBALIZED UNDERSTANDING
[2020-07-27] MEDS: LEVOFLOXACIN (250MG) 250 MG TABLET PO SCH (14:36)
--- NOTE | 2020-07-27 16:20 | NUR ---
MS RN NOTES PATIENT DISCHARGE TO [facility] WITH STABLE VITAL SIGNS, NO ACUTE DISTRESS NOTED. BREATHING UNLABORED. DENIED ANY PAIN AT THIS TIME. DISCHARGE INSTRUCTIONS HANDED OVER TO AMBULANCE PERSONNEL AND PATIENT PROVIDED A COPY. REPORT GIVEN TO CARROLL GRIFFIN , VERBALIZED UNDERSTANDING. ALL BELONGINGS ACCOUNTED FOR. RIGHT LOWER EXTREMITY SURGICAL DRESSING WITH ADELE WRAP CLEAN DRY AND INTACT, NO BLEEDING NOTED. PICKED UP VIA AMBULANCE IN A GURNEY ACCOMPANIED BY 2 EMT PERSONNEL IN STABLE CONDITION.
== END 2020-07-27 16:25 | DRG 623 ==
LOC: ER 15:00 → MED 18:31
PROVIDERS: ADMIT Student in an Organized Health Care Education/Training Program; ATTEND Registered Nurse
PROC: 0JBQ0ZZ Excision of Right Foot Subcutaneous Tissue and Fascia, Open Approach (ICD-10-PCS; principal; 2020-07-21)
PROC: 0HRMXK3 Replacement of Right Foot Skin with Nonautologous Tissue Substitute, Full Thickness, External Approach (ICD-10-PCS; 2020-07-21)
PROC: 0QBL0ZX Excision of Right Tarsal, Open Approach, Diagnostic (ICD-10-PCS; 2020-07-21)
DX: E11.69 Type 2 diabetes mellitus with other specified complication (principal); M86.171 Other acute osteomyelitis, right ankle and foot; L03.115 Cellulitis of right lower limb; L97.519 Non-pressure chronic ulcer of other part of right foot with unspecified severity; E11.621 Type 2 diabetes mellitus with foot ulcer; E11.65 Type 2 diabetes mellitus with hyperglycemia; Z86.16 Personal history of COVID-19; Z88.0 Allergy status to penicillin; Z20.822 Contact with and (suspected) exposure to COVID-19; Z79.84 Long term (current) use of oral hypoglycemic drugs; Z79.899 Other long term (current) drug therapy; Z88.1 Allergy status to other antibiotic agents; Z91.14 Patient's other noncompliance with medication regimen; Z87.311 Personal history of (healed) other pathological fracture
CPT/HCPCS: 11042; 11045; 36415; 38221; 73630-TC; 80048-TC; 80061-TC; 80076-TC; 82962-TC; 83605-TC; 83735-TC; 84100-TC; 84443-TC; 84484-TC; 85025-TC; 85730-TC; 87040-TC; 87070-TC; 87081-TC; 88305-TC; 88311-TC; 97112-TC; 97116-TC; 97530-TC; A4216; A6209; A6403; C9803; G0378; J1815; J1956; J2543; J2704; J3370; J3490; J7030; J7050; J7060; Q4100

== ENCOUNTER 2020-07-30 11:00 | Outpatient (CLI) | payer MEDICARE, OTHER ==
[~2020-07-30 11:00] MED LIST: ACET325T53 PO; ASCO500C17 PO; CHOL100045 PO; DOCU-141 PO; EMPA10TA PO; HYDR-3972 PO; INSU100V7 SQ; Linezolid PO; METF-440 PO; PANT20TA2 PO; PANT40TA2 PO; SITA100T PO
== END 2020-07-30 23:59 ==
LOC: WOU 11:00
PROVIDERS: ATTEND Podiatrist Foot & Ankle Surgery
DX: E11.621 Type 2 diabetes mellitus with foot ulcer (principal); L97.415 Non-pressure chronic ulcer of right heel and midfoot with muscle involvement without evidence of necrosis; E11.622 Type 2 diabetes mellitus with other skin ulcer; L97.315 Non-pressure chronic ulcer of right ankle with muscle involvement without evidence of necrosis; E11.42 Type 2 diabetes mellitus with diabetic polyneuropathy; E11.69 Type 2 diabetes mellitus with other specified complication; M86.171 Other acute osteomyelitis, right ankle and foot; Z79.4 Long term (current) use of insulin
CPT/HCPCS: 11043; 11046; A6253

== ENCOUNTER 2020-08-04 15:40 | Outpatient (CLI) | payer MEDICARE, OTHER ==
[~2020-08-04 15:40] MED LIST changes: -SITA100T PO
== END 2020-08-04 23:59 ==
LOC: WOU 15:40
PROVIDERS: ATTEND Podiatrist Foot & Ankle Surgery
DX: E11.69 Type 2 diabetes mellitus with other specified complication (principal); M86.171 Other acute osteomyelitis, right ankle and foot; E11.621 Type 2 diabetes mellitus with foot ulcer; L97.413 Non-pressure chronic ulcer of right heel and midfoot with necrosis of muscle; L97.313 Non-pressure chronic ulcer of right ankle with necrosis of muscle; E11.42 Type 2 diabetes mellitus with diabetic polyneuropathy; Z79.4 Long term (current) use of insulin
CPT/HCPCS: G0463

== ENCOUNTER 2020-08-06 10:30 | Outpatient (CLI) | payer MEDICARE, OTHER ==
[2020-08-06] MEDS ORDERED: MUPIROCIN 2% CREAM 15 GM TUBE TP ONE (11:19)
== END 2020-08-06 23:59 ==
LOC: WOU 10:30
PROVIDERS: ATTEND Podiatrist Foot & Ankle Surgery
DX: E11.622 Type 2 diabetes mellitus with other skin ulcer (principal); L97.315 Non-pressure chronic ulcer of right ankle with muscle involvement without evidence of necrosis; E11.621 Type 2 diabetes mellitus with foot ulcer; L97.415 Non-pressure chronic ulcer of right heel and midfoot with muscle involvement without evidence of necrosis; E11.42 Type 2 diabetes mellitus with diabetic polyneuropathy; E11.69 Type 2 diabetes mellitus with other specified complication; M86.171 Other acute osteomyelitis, right ankle and foot; Z79.4 Long term (current) use of insulin
CPT/HCPCS: 11043; 11046; A6253

== ENCOUNTER 2020-08-13 10:30 | Outpatient (CLI) | payer MEDICARE, OTHER ==
[2020-08-13] MEDS ORDERED: LIDOCAINE SOLN 4% 50 ML BOTTLE ONE (11:08)
== END 2020-08-13 23:59 | disposition home or self-care (01) ==
LOC: WOU 10:30
PROVIDERS: ATTEND Podiatrist Foot & Ankle Surgery
DX: E11.621 Type 2 diabetes mellitus with foot ulcer (principal); L97.415 Non-pressure chronic ulcer of right heel and midfoot with muscle involvement without evidence of necrosis; E11.622 Type 2 diabetes mellitus with other skin ulcer; L97.315 Non-pressure chronic ulcer of right ankle with muscle involvement without evidence of necrosis; E11.42 Type 2 diabetes mellitus with diabetic polyneuropathy; E11.69 Type 2 diabetes mellitus with other specified complication; M86.171 Other acute osteomyelitis, right ankle and foot; Z79.4 Long term (current) use of insulin
CPT/HCPCS: 11043

== ENCOUNTER 2020-08-16 10:10 | Outpatient (CLI) | payer MEDICARE, OTHER | END 2020-08-16 23:59 | disposition home or self-care (01) | LOC: MRI 10:10 | PROVIDERS: ATTEND Podiatrist Foot & Ankle Surgery | DX: M86.671 Other chronic osteomyelitis, right ankle and foot (principal); L97.419 Non-pressure chronic ulcer of right heel and midfoot with unspecified severity; M65.871 Other synovitis and tenosynovitis, right ankle and foot; M25.471 Effusion, right ankle; M77.31 Calcaneal spur, right foot | CPT/HCPCS: 73721-TC ==

== ENCOUNTER 2020-08-18 13:30 | Outpatient (CLI) | payer MEDICARE, OTHER | END 2020-08-18 23:59 | disposition home or self-care (01) | LOC: WOU 13:30 | PROVIDERS: ATTEND Podiatrist Foot & Ankle Surgery | DX: E11.621 Type 2 diabetes mellitus with foot ulcer (principal); L97.415 Non-pressure chronic ulcer of right heel and midfoot with muscle involvement without evidence of necrosis; E11.622 Type 2 diabetes mellitus with other skin ulcer; L97.315 Non-pressure chronic ulcer of right ankle with muscle involvement without evidence of necrosis; E11.42 Type 2 diabetes mellitus with diabetic polyneuropathy; E11.69 Type 2 diabetes mellitus with other specified complication; M86.671 Other chronic osteomyelitis, right ankle and foot; Z79.4 Long term (current) use of insulin | CPT/HCPCS: 11043; 11046; A6253 ==

== ENCOUNTER 2020-09-03 10:00 | Outpatient (CLI) | payer MEDICARE, OTHER ==
[2020-09-03] MEDS ORDERED: CLOTRIMAZOLE 1% 15 GM TUBE TP ONE (11:13)
== END 2020-09-03 23:59 | disposition home or self-care (01) ==
LOC: WOU 10:00
PROVIDERS: ATTEND Podiatrist Foot & Ankle Surgery
DX: E11.621 Type 2 diabetes mellitus with foot ulcer (principal); L97.415 Non-pressure chronic ulcer of right heel and midfoot with muscle involvement without evidence of necrosis; E11.622 Type 2 diabetes mellitus with other skin ulcer; L97.315 Non-pressure chronic ulcer of right ankle with muscle involvement without evidence of necrosis; E11.42 Type 2 diabetes mellitus with diabetic polyneuropathy; E11.69 Type 2 diabetes mellitus with other specified complication; M86.171 Other acute osteomyelitis, right ankle and foot; Z79.4 Long term (current) use of insulin
CPT/HCPCS: 11042; 11045

== ENCOUNTER 2020-09-08 11:30 | Outpatient (CLI) | payer MEDICARE, OTHER | END 2020-09-08 23:59 | disposition home or self-care (01) | LOC: WOU 11:30 | PROVIDERS: ATTEND Specialist | DX: E11.69 Type 2 diabetes mellitus with other specified complication (principal); M86.671 Other chronic osteomyelitis, right ankle and foot; E11.42 Type 2 diabetes mellitus with diabetic polyneuropathy; E11.621 Type 2 diabetes mellitus with foot ulcer; L97.313 Non-pressure chronic ulcer of right ankle with necrosis of muscle; L97.413 Non-pressure chronic ulcer of right heel and midfoot with necrosis of muscle; Z79.4 Long term (current) use of insulin | CPT/HCPCS: G0463 ==

== ENCOUNTER 2020-09-10 11:00 | Outpatient (CLI) | payer MEDICARE, OTHER | END 2020-09-10 23:59 | disposition home or self-care (01) | LOC: WOU 11:00 | PROVIDERS: ATTEND Podiatrist Foot & Ankle Surgery | DX: E11.621 Type 2 diabetes mellitus with foot ulcer (principal); L97.415 Non-pressure chronic ulcer of right heel and midfoot with muscle involvement without evidence of necrosis; E11.622 Type 2 diabetes mellitus with other skin ulcer; L97.315 Non-pressure chronic ulcer of right ankle with muscle involvement without evidence of necrosis; E11.42 Type 2 diabetes mellitus with diabetic polyneuropathy; E11.69 Type 2 diabetes mellitus with other specified complication; M86.671 Other chronic osteomyelitis, right ankle and foot; Z79.4 Long term (current) use of insulin | CPT/HCPCS: 82962; C5275; Q4117 ==

== ENCOUNTER 2020-09-13 11:51 | Outpatient (CLI) | payer MEDICARE, OTHER ==
[2020-09-13 12:38] LABS: BASOPHILS % (AUTO) 0.5 % (0.0-2.0); EOSINOPHILS % (AUTO) 1.6 % (0.0-6.0); HEMATOCRIT 41 % (39-51); HEMOGLOBIN 13.9 g/dL (13.5-17.5); LYMPHOCYTES # (AUTO) 1.4 /CMM (0.8-4.8); LYMPHOCYTES % (AUTO) 15.1 % (20.0-44.0); MEAN CORPUSCULAR HGB CONC 34 g/dl (31.0-36.0); MEAN CORPUSCULAR VOLUME 85 fL (80-96); MONOCYTES # (AUTO) 0.6 /CMM (0.1-1.30); MONOCYTES % (AUTO) 6.5 % (2.0-12.0); NEUTROPHILS # (AUTO) 7.1 /CMM (1.8-8.9); NEUTROPHILS % (AUTO) 76.3 % (43.0-81.0); PLATELET COUNT (AUTO) 215 /CMM (150-450); RED BLOOD CELL COUNT(AUTO) 4.84 MIL/uL (4.5-6.0); WHITE BLOOD COUNT (AUTO) 9.4 K/uL (4.3-11.0)
[2020-09-13 13:40] LABS: ALBUMIN 3.5 g/dL (3.4-5.0); BILIRUBIN,TOTAL 0.3 mg/dL (0.2-1.0); CREATININE 0.8 mg/dL (0.6-1.3); POTASSIUM 4.5 mmol/L (3.5-5.1); TOTAL PROTEIN, SERUM 7.7 g/dL (6.4-8.2)
[2020-09-13 14:58] LABS: PREALBUMIN 36.4 MG/DL (18.0-35.7); PROSTATE SPECIFIC ANTIGEN SCR 0.87 ng/mL (0.00-4.00)
[2020-09-30] MEDS ORDERED: OMEP40CA13 PO (13:15)
== END 2020-09-13 23:59 | disposition home or self-care (01) ==
LOC: LAB 11:51
PROVIDERS: ATTEND Internal Medicine Interventional Cardiology
DX: E11.69 Type 2 diabetes mellitus with other specified complication (principal); M86.9 Osteomyelitis, unspecified
CPT/HCPCS: 36415; 80053-TC; 84134-TC; 84153-TC; 84154-TC; 85025-TC; 87040-TC

== ENCOUNTER 2020-09-17 10:35 | Outpatient (CLI) | payer MEDICARE, OTHER | END 2020-09-17 23:59 | disposition home or self-care (01) | LOC: WOU 10:35 | PROVIDERS: ATTEND Podiatrist Foot & Ankle Surgery | DX: E11.621 Type 2 diabetes mellitus with foot ulcer (principal); L97.415 Non-pressure chronic ulcer of right heel and midfoot with muscle involvement without evidence of necrosis; E11.622 Type 2 diabetes mellitus with other skin ulcer; L97.315 Non-pressure chronic ulcer of right ankle with muscle involvement without evidence of necrosis; E11.69 Type 2 diabetes mellitus with other specified complication; M86.671 Other chronic osteomyelitis, right ankle and foot; E11.42 Type 2 diabetes mellitus with diabetic polyneuropathy; Z79.4 Long term (current) use of insulin | CPT/HCPCS: 11042; 11045; 82962-TC ==

== ENCOUNTER 2020-09-24 11:00 | Outpatient (CLI) | payer MEDICARE, OTHER ==
[2020-09-30] MEDS ORDERED: OMEP40CA13 PO (13:15)
== END 2020-09-24 23:59 | disposition home or self-care (01) ==
LOC: WOU 11:00
PROVIDERS: ATTEND Podiatrist Foot & Ankle Surgery
DX: E11.621 Type 2 diabetes mellitus with foot ulcer (principal); L97.415 Non-pressure chronic ulcer of right heel and midfoot with muscle involvement without evidence of necrosis; E11.622 Type 2 diabetes mellitus with other skin ulcer; L97.315 Non-pressure chronic ulcer of right ankle with muscle involvement without evidence of necrosis; E11.42 Type 2 diabetes mellitus with diabetic polyneuropathy; E11.69 Type 2 diabetes mellitus with other specified complication; M86.671 Other chronic osteomyelitis, right ankle and foot; Z79.4 Long term (current) use of insulin
CPT/HCPCS: 15275; 82962; Q4110

== ENCOUNTER 2020-10-01 11:25 | Outpatient (CLI) | payer MEDICARE, OTHER ==
[~2020-10-01 11:25] MED LIST changes: +OMEP40CA13 PO
== END 2020-10-01 23:59 | disposition home or self-care (01) ==
LOC: WOU 11:25
PROVIDERS: ATTEND Podiatrist Foot & Ankle Surgery
DX: E11.621 Type 2 diabetes mellitus with foot ulcer (principal); L97.415 Non-pressure chronic ulcer of right heel and midfoot with muscle involvement without evidence of necrosis; E11.622 Type 2 diabetes mellitus with other skin ulcer; L97.315 Non-pressure chronic ulcer of right ankle with muscle involvement without evidence of necrosis; E11.42 Type 2 diabetes mellitus with diabetic polyneuropathy; E11.69 Type 2 diabetes mellitus with other specified complication; M86.671 Other chronic osteomyelitis, right ankle and foot; Z79.4 Long term (current) use of insulin
CPT/HCPCS: 11042; 11045

== ENCOUNTER 2020-10-06 14:34 | Outpatient (CLI) | payer MEDICARE, OTHER ==
[~2020-10-06 14:34] MED LIST changes: -OMEP40CA13 PO; +OMEP40CA21 PO
[2020-10-06] MEDS ORDERED: SILVER NITRATE APPLICATOR 1 EA BOX ONE (14:46)
[2020-10-06] MEDS ORDERED: BACI/NEOM/POLY B OINT PKT 1 UDPKT PACKET ONE (14:55)
== END 2020-10-06 23:59 | disposition home or self-care (01) ==
LOC: WOU 14:34
PROVIDERS: ATTEND Podiatrist Foot & Ankle Surgery
DX: E11.621 Type 2 diabetes mellitus with foot ulcer (principal); L97.415 Non-pressure chronic ulcer of right heel and midfoot with muscle involvement without evidence of necrosis; E11.622 Type 2 diabetes mellitus with other skin ulcer; L97.315 Non-pressure chronic ulcer of right ankle with muscle involvement without evidence of necrosis; Z79.4 Long term (current) use of insulin; E11.42 Type 2 diabetes mellitus with diabetic polyneuropathy; E11.69 Type 2 diabetes mellitus with other specified complication; M86.671 Other chronic osteomyelitis, right ankle and foot; L60.0 Ingrowing nail; R60.0 Localized edema
CPT/HCPCS: 11042; 11045; 11730

== ENCOUNTER 2020-10-08 11:06 | Outpatient (CLI) | payer MEDICARE, OTHER ==
[2020-10-08] MEDS ORDERED: LIDOCAINE SOLN 4% 50 ML BOTTLE ONE (11:42)
[2020-10-08] MEDS ORDERED: SILVER NITRATE APPLICATOR 1 EA BOX ONE (12:03)
== END 2020-10-08 23:59 | disposition home or self-care (01) ==
LOC: WOU 11:06
PROVIDERS: ATTEND Podiatrist Foot & Ankle Surgery
DX: E11.621 Type 2 diabetes mellitus with foot ulcer (principal); L97.415 Non-pressure chronic ulcer of right heel and midfoot with muscle involvement without evidence of necrosis; E11.622 Type 2 diabetes mellitus with other skin ulcer; L97.315 Non-pressure chronic ulcer of right ankle with muscle involvement without evidence of necrosis; E11.42 Type 2 diabetes mellitus with diabetic polyneuropathy; E11.69 Type 2 diabetes mellitus with other specified complication; M86.671 Other chronic osteomyelitis, right ankle and foot; Z79.4 Long term (current) use of insulin
CPT/HCPCS: 11042; 11045; 82962-TC

== ENCOUNTER 2020-10-12 10:22 | Outpatient (CLI) | payer MEDICARE, OTHER | END 2020-10-12 23:59 | disposition home or self-care (01) | LOC: MSC 10:22 | PROVIDERS: ATTEND Internal Medicine | DX: M25.511 Pain in right shoulder (principal); M54.5 Low back pain; V89.2XXA Person injured in unspecified motor-vehicle accident, traffic, initial encounter; E11.621 Type 2 diabetes mellitus with foot ulcer; L97.519 Non-pressure chronic ulcer of other part of right foot with unspecified severity; Z79.4 Long term (current) use of insulin; G62.9 Polyneuropathy, unspecified; Z86.16 Personal history of COVID-19; R00.0 Tachycardia, unspecified | CPT/HCPCS: 72110; 73030; G0463 ==

== ENCOUNTER 2020-10-15 10:30 | Outpatient (CLI) | payer MEDICARE, OTHER ==
[2020-10-15] MEDS ORDERED: SILVER NITRATE APPLICATOR 1 EA BOX ONE (11:22)
== END 2020-10-15 23:59 | disposition home or self-care (01) ==
LOC: WOU 10:30
PROVIDERS: ATTEND Podiatrist Foot & Ankle Surgery
DX: E11.621 Type 2 diabetes mellitus with foot ulcer (principal); L97.412 Non-pressure chronic ulcer of right heel and midfoot with fat layer exposed; E11.622 Type 2 diabetes mellitus with other skin ulcer; L97.312 Non-pressure chronic ulcer of right ankle with fat layer exposed; E11.42 Type 2 diabetes mellitus with diabetic polyneuropathy; E11.69 Type 2 diabetes mellitus with other specified complication; M86.671 Other chronic osteomyelitis, right ankle and foot; Z79.4 Long term (current) use of insulin
CPT/HCPCS: 11042; 11045; A6197

== ENCOUNTER → 2020-10-19 | Outpatient (CLI) | payer MEDICARE, OTHER | END | disposition home or self-care (01) | LOC: MSC 11:11 | PROVIDERS: ATTEND Internal Medicine | DX: M25.511 Pain in right shoulder (principal); M54.5 Low back pain; V43.62XA Car passenger injured in collision with other type car in traffic accident, initial encounter; Y92.410 Unspecified street and highway as the place of occurrence of the external cause; Z79.4 Long term (current) use of insulin; E11.42 Type 2 diabetes mellitus with diabetic polyneuropathy; S91.301D Unspecified open wound, right foot, subsequent encounter; X58.XXXD Exposure to other specified factors, subsequent encounter ==

== ENCOUNTER 2020-10-22 10:30 | Outpatient (CLI) | payer MEDICARE, OTHER ==
[2020-10-22] MEDS ORDERED: MUPIROCIN 2% CREAM 15 GM TUBE TP ONE (11:06)
[2020-10-22 12:42] LABS: BASOPHILS % (AUTO) 0.3 % (0.0-2.0); EOSINOPHILS % (AUTO) 1.9 % (0.0-6.0); HEMATOCRIT 44 % (39-51); HEMOGLOBIN 14.7 g/dL (13.5-17.5); LYMPHOCYTES # (AUTO) 1.8 K/uL (0.8-4.8); LYMPHOCYTES % (AUTO) 27.8 % (20.0-44.0); MEAN CORPUSCULAR HGB CONC 34 g/dl (31.0-36.0); MEAN CORPUSCULAR VOLUME 85 fL (80-96); MONOCYTES # (AUTO) 0.3 K/uL (0.1-1.30); MONOCYTES % (AUTO) 4.9 % (2.0-12.0); NEUTROPHILS # (AUTO) 4.2 K/uL (1.8-8.9); NEUTROPHILS % (AUTO) 65.1 % (43.0-81.0); PLATELET COUNT (AUTO) 294 K/uL (150-450); WHITE BLOOD COUNT (AUTO) 6.4 K/uL (4.3-11.0)
[2020-10-22 13:01] LABS: ALBUMIN 4.1 g/dL (3.4-5.0)
[2020-10-22 13:49] LABS: C-REACTIVE PROTEIN 1.3 mg/dL (0.0-0.9)
== END 2020-10-22 23:59 | disposition home health service (06) ==
LOC: WOU 10:30
PROVIDERS: ATTEND Podiatrist Foot & Ankle Surgery
DX: E11.622 Type 2 diabetes mellitus with other skin ulcer (principal); L97.312 Non-pressure chronic ulcer of right ankle with fat layer exposed; E11.621 Type 2 diabetes mellitus with foot ulcer; L97.412 Non-pressure chronic ulcer of right heel and midfoot with fat layer exposed; L97.512 Non-pressure chronic ulcer of other part of right foot with fat layer exposed; E11.69 Type 2 diabetes mellitus with other specified complication; M86.671 Other chronic osteomyelitis, right ankle and foot; E11.42 Type 2 diabetes mellitus with diabetic polyneuropathy; Z79.4 Long term (current) use of insulin
CPT/HCPCS: 11042; 11045; 36415; 82040-TC; 85025-TC; 85652-TC; 86140-TC

== ENCOUNTER 2020-10-26 13:39 | Outpatient (CLI) | payer MEDICARE, OTHER | END 2020-10-26 23:59 | disposition home or self-care (01) | LOC: MRI 13:39 | PROVIDERS: ATTEND Podiatrist Foot & Ankle Surgery | DX: M62.571 Muscle wasting and atrophy, not elsewhere classified, right ankle and foot (principal); M86.8X7 Other osteomyelitis, ankle and foot | CPT/HCPCS: 73721-TC ==

== ENCOUNTER 2020-10-29 11:30 | Outpatient (CLI) | payer MEDICARE, OTHER ==
[2020-10-29] MEDS ORDERED: MUPIROCIN 2% CREAM 15 GM TUBE TP ONE (12:28)
== END 2020-10-29 23:59 | disposition home health service (06) ==
LOC: WOU 11:30
PROVIDERS: ATTEND Podiatrist Foot & Ankle Surgery
DX: E11.621 Type 2 diabetes mellitus with foot ulcer (principal); L97.412 Non-pressure chronic ulcer of right heel and midfoot with fat layer exposed; L97.512 Non-pressure chronic ulcer of other part of right foot with fat layer exposed; E11.622 Type 2 diabetes mellitus with other skin ulcer; L97.312 Non-pressure chronic ulcer of right ankle with fat layer exposed; E11.42 Type 2 diabetes mellitus with diabetic polyneuropathy; E11.69 Type 2 diabetes mellitus with other specified complication; M86.671 Other chronic osteomyelitis, right ankle and foot; Z79.4 Long term (current) use of insulin
CPT/HCPCS: 11042; 15275; Q4110

== ENCOUNTER 2020-11-05 10:00 | Outpatient (CLI) | payer MEDICARE, OTHER | END 2020-11-05 23:59 | disposition admitted as inpatient to this hospital (09) | LOC: WOU 10:00 | PROVIDERS: ATTEND Podiatrist Foot & Ankle Surgery | DX: E11.622 Type 2 diabetes mellitus with other skin ulcer (principal); E11.621 Type 2 diabetes mellitus with foot ulcer; L97.312 Non-pressure chronic ulcer of right ankle with fat layer exposed; L97.512 Non-pressure chronic ulcer of other part of right foot with fat layer exposed; L97.518 Non-pressure chronic ulcer of other part of right foot with other specified severity; E11.42 Type 2 diabetes mellitus with diabetic polyneuropathy; E11.69 Type 2 diabetes mellitus with other specified complication; M86.671 Other chronic osteomyelitis, right ankle and foot; Z79.4 Long term (current) use of insulin | CPT/HCPCS: 11042 ==

== ENCOUNTER → 2020-11-05 | Outpatient (CLI) | payer MEDICARE, OTHER | END | disposition home or self-care (01) | LOC: MRI 08:29 | PROVIDERS: ATTEND Internal Medicine | DX: M19.011 Primary osteoarthritis, right shoulder (principal); M25.411 Effusion, right shoulder; M75.51 Bursitis of right shoulder; M75.81 Other shoulder lesions, right shoulder; M54.5 Low back pain | CPT/HCPCS: 72148-TC; 73221-TC ==

== ENCOUNTER 2020-11-11 09:00 | Outpatient (CLI) | payer MEDICARE, OTHER | END 2020-11-11 23:59 | disposition home or self-care (01) | LOC: MSC 09:00 | PROVIDERS: ATTEND Internal Medicine | DX: M77.8 Other enthesopathies, not elsewhere classified (principal); M75.51 Bursitis of right shoulder; M75.01 Adhesive capsulitis of right shoulder; M54.5 Low back pain; E11.621 Type 2 diabetes mellitus with foot ulcer; E11.319 Type 2 diabetes mellitus with unspecified diabetic retinopathy without macular edema; E11.40 Type 2 diabetes mellitus with diabetic neuropathy, unspecified; E11.69 Type 2 diabetes mellitus with other specified complication; L97.509 Non-pressure chronic ulcer of other part of unspecified foot with unspecified severity; M86.671 Other chronic osteomyelitis, right ankle and foot; Z79.4 Long term (current) use of insulin ==

== ENCOUNTER 2020-11-12 11:00 | Outpatient (CLI) | payer MEDICARE, OTHER | END 2020-11-12 23:59 | disposition home health service (06) | LOC: WOU 11:00 | PROVIDERS: ATTEND Podiatrist Foot & Ankle Surgery | DX: E11.621 Type 2 diabetes mellitus with foot ulcer (principal); L97.512 Non-pressure chronic ulcer of other part of right foot with fat layer exposed; L97.518 Non-pressure chronic ulcer of other part of right foot with other specified severity; E11.622 Type 2 diabetes mellitus with other skin ulcer; L97.312 Non-pressure chronic ulcer of right ankle with fat layer exposed; Z79.4 Long term (current) use of insulin; E11.42 Type 2 diabetes mellitus with diabetic polyneuropathy; E11.69 Type 2 diabetes mellitus with other specified complication; M86.671 Other chronic osteomyelitis, right ankle and foot | CPT/HCPCS: 11042 ==

== ENCOUNTER 2020-11-19 10:37 | Outpatient (CLI) | payer MEDICARE, OTHER | END 2020-11-19 23:59 | disposition home health service (06) | LOC: WOU 10:37 | PROVIDERS: ATTEND Podiatrist Foot & Ankle Surgery | DX: E11.621 Type 2 diabetes mellitus with foot ulcer (principal); E11.622 Type 2 diabetes mellitus with other skin ulcer; L97.312 Non-pressure chronic ulcer of right ankle with fat layer exposed; L97.512 Non-pressure chronic ulcer of other part of right foot with fat layer exposed; E11.42 Type 2 diabetes mellitus with diabetic polyneuropathy; E11.69 Type 2 diabetes mellitus with other specified complication; M86.671 Other chronic osteomyelitis, right ankle and foot; Z79.4 Long term (current) use of insulin | CPT/HCPCS: 11042; 15275; Q4110 ==

== ENCOUNTER 2020-11-26 10:35 | Outpatient (CLI) | payer MEDICARE, OTHER | END 2020-11-26 23:59 | disposition home health service (06) | LOC: WOU 10:35 | PROVIDERS: ATTEND Podiatrist Foot & Ankle Surgery | DX: E11.621 Type 2 diabetes mellitus with foot ulcer (principal); E11.622 Type 2 diabetes mellitus with other skin ulcer; L97.512 Non-pressure chronic ulcer of other part of right foot with fat layer exposed; L97.312 Non-pressure chronic ulcer of right ankle with fat layer exposed; Z79.4 Long term (current) use of insulin; E11.69 Type 2 diabetes mellitus with other specified complication; M86.671 Other chronic osteomyelitis, right ankle and foot; E11.42 Type 2 diabetes mellitus with diabetic polyneuropathy | CPT/HCPCS: 11042 ==

== ENCOUNTER 2020-12-03 10:35 | Outpatient (CLI) | payer MEDICARE, OTHER ==
[2020-12-03 11:23] LABS: BASOPHILS % (AUTO) 0.7 % (0.0-2.0); EOSINOPHILS % (AUTO) 3.3 % (0.0-6.0); HEMATOCRIT 36 % (39-51); HEMOGLOBIN 12.4 g/dL (13.5-17.5); LYMPHOCYTES # (AUTO) 1.2 K/uL (0.8-4.8); LYMPHOCYTES % (AUTO) 25.6 % (20.0-44.0); MEAN CORPUSCULAR HGB CONC 35 g/dl (31.0-36.0); MEAN CORPUSCULAR VOLUME 87 fL (80-96); MONOCYTES # (AUTO) 0.4 K/uL (0.1-1.30); MONOCYTES % (AUTO) 7.7 % (2.0-12.0); NEUTROPHILS # (AUTO) 2.9 K/uL (1.8-8.9); NEUTROPHILS % (AUTO) 62.7 % (43.0-81.0); PLATELET COUNT (AUTO) 272 K/uL (150-450); RED BLOOD CELL COUNT(AUTO) 4.11 MIL/uL (4.5-6.0); WHITE BLOOD COUNT (AUTO) 4.6 K/uL (4.3-11.0)
== END 2020-12-03 23:59 | disposition home health service (06) ==
LOC: WOU 10:35
PROVIDERS: ATTEND Podiatrist Foot & Ankle Surgery
DX: E11.622 Type 2 diabetes mellitus with other skin ulcer (principal); L97.312 Non-pressure chronic ulcer of right ankle with fat layer exposed; E11.621 Type 2 diabetes mellitus with foot ulcer; L97.412 Non-pressure chronic ulcer of right heel and midfoot with fat layer exposed; E11.42 Type 2 diabetes mellitus with diabetic polyneuropathy; E11.69 Type 2 diabetes mellitus with other specified complication; M86.671 Other chronic osteomyelitis, right ankle and foot; Z79.4 Long term (current) use of insulin; L84 Corns and callosities
CPT/HCPCS: 11042; 11055; 36415; 85025-TC; 85652-TC; 86140-TC

== ENCOUNTER 2020-12-08 13:30 | Outpatient (CLI) | payer MEDICARE, OTHER | END 2020-12-08 23:59 | disposition home health service (06) | LOC: WOU 13:30 | PROVIDERS: ATTEND Podiatrist Foot & Ankle Surgery | DX: E11.621 Type 2 diabetes mellitus with foot ulcer (principal); E11.622 Type 2 diabetes mellitus with other skin ulcer; L97.312 Non-pressure chronic ulcer of right ankle with fat layer exposed; L97.422 Non-pressure chronic ulcer of left heel and midfoot with fat layer exposed; L97.412 Non-pressure chronic ulcer of right heel and midfoot with fat layer exposed; E11.42 Type 2 diabetes mellitus with diabetic polyneuropathy; E11.69 Type 2 diabetes mellitus with other specified complication; M86.171 Other acute osteomyelitis, right ankle and foot; R00.0 Tachycardia, unspecified; E78.5 Hyperlipidemia, unspecified; Z79.899 Other long term (current) drug therapy; Z86.16 Personal history of COVID-19; Z79.4 Long term (current) use of insulin | CPT/HCPCS: 11042 ==

== ENCOUNTER 2020-12-10 08:30 | Outpatient (CLI) | payer MEDICARE, OTHER | END 2020-12-10 23:59 | disposition home or self-care (01) | LOC: WOU 08:30 | PROVIDERS: ATTEND Podiatrist Foot & Ankle Surgery | DX: E11.69 Type 2 diabetes mellitus with other specified complication (principal); M86.171 Other acute osteomyelitis, right ankle and foot; E11.42 Type 2 diabetes mellitus with diabetic polyneuropathy; S80.11XA Contusion of right lower leg, initial encounter; X58.XXXA Exposure to other specified factors, initial encounter; Y92.89 Other specified places as the place of occurrence of the external cause; Z79.4 Long term (current) use of insulin; Z79.899 Other long term (current) drug therapy | CPT/HCPCS: 11042; 29580 ==

== ENCOUNTER 2020-12-14 10:30 | Outpatient (CLI) | payer MEDICARE, OTHER | END 2020-12-14 23:59 | disposition home or self-care (01) | LOC: WOU 10:30 | PROVIDERS: ATTEND Podiatrist Foot & Ankle Surgery | DX: E11.622 Type 2 diabetes mellitus with other skin ulcer (principal); L97.313 Non-pressure chronic ulcer of right ankle with necrosis of muscle; E11.621 Type 2 diabetes mellitus with foot ulcer; L97.413 Non-pressure chronic ulcer of right heel and midfoot with necrosis of muscle; L97.512 Non-pressure chronic ulcer of other part of right foot with fat layer exposed; E11.69 Type 2 diabetes mellitus with other specified complication; M86.671 Other chronic osteomyelitis, right ankle and foot; E11.42 Type 2 diabetes mellitus with diabetic polyneuropathy; L97.812 Non-pressure chronic ulcer of other part of right lower leg with fat layer exposed; Z86.16 Personal history of COVID-19; E78.5 Hyperlipidemia, unspecified; R70.0 Elevated erythrocyte sedimentation rate; Z79.4 Long term (current) use of insulin; L84 Corns and callosities | CPT/HCPCS: 11042; 11055 ==

== ENCOUNTER 2020-12-17 10:30 | Outpatient (CLI) | payer MEDICARE, OTHER ==
[2020-12-17] MEDS ORDERED: SILVER NITRATE APPLICATOR 1 EA BOX ONE (10:38)
[2020-12-17 11:30] LABS: BASOPHILS # (AUTO) 0.1 K/uL (0.0-0.2); BASOPHILS % (AUTO) 0.9 % (0.0-2.0); EOSINOPHILS % (AUTO) 2.3 % (0.0-6.0); HEMATOCRIT 41 % (39-51); HEMOGLOBIN 13.9 g/dL (13.5-17.5); LYMPHOCYTES # (AUTO) 1.7 K/uL (0.8-4.8); LYMPHOCYTES % (AUTO) 25.4 % (20.0-44.0); MEAN CORPUSCULAR HGB CONC 34 g/dl (31.0-36.0); MEAN CORPUSCULAR VOLUME 87 fL (80-96); MONOCYTES # (AUTO) 0.4 K/uL (0.1-1.30); MONOCYTES % (AUTO) 5.9 % (2.0-12.0); NEUTROPHILS # (AUTO) 4.5 K/uL (1.8-8.9); NEUTROPHILS % (AUTO) 65.5 % (43.0-81.0); PLATELET COUNT (AUTO) 335 K/uL (150-450); RED BLOOD CELL COUNT(AUTO) 4.67 MIL/uL (4.5-6.0); WHITE BLOOD COUNT (AUTO) 6.9 K/uL (4.3-11.0)
== END 2020-12-17 23:59 | disposition home or self-care (01) ==
LOC: WOU 10:30
PROVIDERS: ATTEND Podiatrist Foot & Ankle Surgery
DX: E11.622 Type 2 diabetes mellitus with other skin ulcer (principal); E11.621 Type 2 diabetes mellitus with foot ulcer; L97.312 Non-pressure chronic ulcer of right ankle with fat layer exposed; L97.512 Non-pressure chronic ulcer of other part of right foot with fat layer exposed; E11.42 Type 2 diabetes mellitus with diabetic polyneuropathy; L97.422 Non-pressure chronic ulcer of left heel and midfoot with fat layer exposed; Z79.4 Long term (current) use of insulin; Z79.899 Other long term (current) drug therapy; E11.69 Type 2 diabetes mellitus with other specified complication; M86.671 Other chronic osteomyelitis, right ankle and foot; L84 Corns and callosities; E11.40 Type 2 diabetes mellitus with diabetic neuropathy, unspecified; Z86.16 Personal history of COVID-19
CPT/HCPCS: 11042; 17250; 36415; 85025-TC; 85652-TC; 86140-TC

== ENCOUNTER 2020-12-21 09:45 | Outpatient (CLI) | payer MEDICARE, OTHER | END 2020-12-21 23:59 | disposition home or self-care (01) | LOC: WOU 09:45 | PROVIDERS: ATTEND Podiatrist Foot & Ankle Surgery | DX: E11.621 Type 2 diabetes mellitus with foot ulcer (principal); E11.622 Type 2 diabetes mellitus with other skin ulcer; L97.512 Non-pressure chronic ulcer of other part of right foot with fat layer exposed; L97.312 Non-pressure chronic ulcer of right ankle with fat layer exposed; E11.42 Type 2 diabetes mellitus with diabetic polyneuropathy; E11.69 Type 2 diabetes mellitus with other specified complication; M86.671 Other chronic osteomyelitis, right ankle and foot; Z79.4 Long term (current) use of insulin; L84 Corns and callosities; M89.8X7 Other specified disorders of bone, ankle and foot; E78.5 Hyperlipidemia, unspecified; Z79.899 Other long term (current) drug therapy; Z86.16 Personal history of COVID-19 | CPT/HCPCS: 11042; 11055; 82962-TC ==

== ENCOUNTER 2020-12-24 09:30 | Outpatient (CLI) | payer MEDICARE, OTHER | END 2020-12-24 23:59 | disposition home health service (06) | LOC: WOU 09:30 | PROVIDERS: ATTEND Podiatrist Foot & Ankle Surgery | DX: E11.621 Type 2 diabetes mellitus with foot ulcer (principal); E11.622 Type 2 diabetes mellitus with other skin ulcer; L97.512 Non-pressure chronic ulcer of other part of right foot with fat layer exposed; L97.313 Non-pressure chronic ulcer of right ankle with necrosis of muscle; E11.42 Type 2 diabetes mellitus with diabetic polyneuropathy; E11.69 Type 2 diabetes mellitus with other specified complication; M86.671 Other chronic osteomyelitis, right ankle and foot; R00.0 Tachycardia, unspecified; Z86.16 Personal history of COVID-19; Z79.4 Long term (current) use of insulin; Z79.899 Other long term (current) drug therapy | CPT/HCPCS: 11042; A6209 ==

== ENCOUNTER 2020-12-28 10:45 | Outpatient (CLI) | payer MEDICARE, OTHER | END 2020-12-28 23:59 | disposition home health service (06) | LOC: WOU 10:45 | PROVIDERS: ATTEND Podiatrist Foot & Ankle Surgery | DX: E11.621 Type 2 diabetes mellitus with foot ulcer (principal); E11.622 Type 2 diabetes mellitus with other skin ulcer; L97.412 Non-pressure chronic ulcer of right heel and midfoot with fat layer exposed; L97.312 Non-pressure chronic ulcer of right ankle with fat layer exposed; R00.0 Tachycardia, unspecified; E11.69 Type 2 diabetes mellitus with other specified complication; M86.671 Other chronic osteomyelitis, right ankle and foot; E11.42 Type 2 diabetes mellitus with diabetic polyneuropathy; E78.5 Hyperlipidemia, unspecified; Z86.16 Personal history of COVID-19; Z79.4 Long term (current) use of insulin; Z79.899 Other long term (current) drug therapy | CPT/HCPCS: 11042; A6209 ==

== ENCOUNTER 2020-12-28 11:50 | Outpatient (CLI) | payer MEDICARE, OTHER | END 2020-12-28 23:59 | disposition home or self-care (01) | LOC: MRI 11:50 | PROVIDERS: ATTEND Podiatrist Foot & Ankle Surgery | DX: E11.621 Type 2 diabetes mellitus with foot ulcer (principal); M86.8X6 Other osteomyelitis, lower leg; M62.571 Muscle wasting and atrophy, not elsewhere classified, right ankle and foot | CPT/HCPCS: 73718-TC; 73721-TC ==

== ENCOUNTER 2020-12-31 09:30 | Outpatient (CLI) | payer MEDICARE, OTHER ==
[2020-12-31 11:49] LABS: BASOPHILS % (AUTO) 0.5 % (0.0-2.0); EOSINOPHILS % (AUTO) 3.2 % (0.0-6.0); HEMATOCRIT 39 % (39-51); HEMOGLOBIN 13.5 g/dL (13.5-17.5); LYMPHOCYTES % (AUTO) 19.3 % (20.0-44.0); MEAN CORPUSCULAR HGB CONC 34 g/dl (31.0-36.0); MEAN CORPUSCULAR VOLUME 87 fL (80-96); MONOCYTES # (AUTO) 0.3 K/uL (0.1-1.30); MONOCYTES % (AUTO) 5.1 % (2.0-12.0); NEUTROPHILS # (AUTO) 3.8 K/uL (1.8-8.9); NEUTROPHILS % (AUTO) 71.9 % (43.0-81.0); PLATELET COUNT (AUTO) 279 K/uL (150-450); RED BLOOD CELL COUNT(AUTO) 4.54 MIL/uL (4.5-6.0); WHITE BLOOD COUNT (AUTO) 5.3 K/uL (4.3-11.0)
== END 2020-12-31 23:59 | disposition home health service (06) ==
LOC: WOU 09:30
PROVIDERS: ATTEND Podiatrist Foot & Ankle Surgery
DX: E11.622 Type 2 diabetes mellitus with other skin ulcer (principal); E11.621 Type 2 diabetes mellitus with foot ulcer; L97.312 Non-pressure chronic ulcer of right ankle with fat layer exposed; L97.512 Non-pressure chronic ulcer of other part of right foot with fat layer exposed; L97.412 Non-pressure chronic ulcer of right heel and midfoot with fat layer exposed; E11.42 Type 2 diabetes mellitus with diabetic polyneuropathy; E11.69 Type 2 diabetes mellitus with other specified complication; M86.171 Other acute osteomyelitis, right ankle and foot; M86.671 Other chronic osteomyelitis, right ankle and foot; Z79.4 Long term (current) use of insulin; Z20.822 Contact with and (suspected) exposure to COVID-19; E78.5 Hyperlipidemia, unspecified
CPT/HCPCS: 11042; 36415; 84145; 85025; 85652; 86140; A6209

== ENCOUNTER 2021-01-04 10:00 | Outpatient (CLI) | payer MEDICARE, OTHER ==
[2021-01-04] MEDS ORDERED: MUPIROCIN 2% CREAM 15 GM TUBE TP ONE (10:41)
[2021-01-04] MEDS ORDERED: GENTAMICIN 0.1% CREAM 15 GM TUBE ONE (10:42)
== END 2021-01-04 23:59 | disposition home health service (06) ==
LOC: WOU 10:00
PROVIDERS: ATTEND Podiatrist Foot & Ankle Surgery
DX: E11.622 Type 2 diabetes mellitus with other skin ulcer (principal); L97.312 Non-pressure chronic ulcer of right ankle with fat layer exposed; E11.621 Type 2 diabetes mellitus with foot ulcer; L97.412 Non-pressure chronic ulcer of right heel and midfoot with fat layer exposed; L97.522 Non-pressure chronic ulcer of other part of left foot with fat layer exposed; L97.512 Non-pressure chronic ulcer of other part of right foot with fat layer exposed; E11.42 Type 2 diabetes mellitus with diabetic polyneuropathy; E11.69 Type 2 diabetes mellitus with other specified complication; M86.671 Other chronic osteomyelitis, right ankle and foot; Z79.4 Long term (current) use of insulin
CPT/HCPCS: 11042

== ENCOUNTER 2021-01-04 11:00 | Outpatient (CLI) | payer MEDICARE, OTHER | END 2021-01-04 23:59 | disposition home or self-care (01) | LOC: WOU 11:00 | PROVIDERS: ATTEND Registered Nurse | DX: E11.69 Type 2 diabetes mellitus with other specified complication (principal); M86.671 Other chronic osteomyelitis, right ankle and foot; Z79.84 Long term (current) use of oral hypoglycemic drugs; Z20.822 Contact with and (suspected) exposure to COVID-19; Z91.19 Patient's noncompliance with other medical treatment and regimen | CPT/HCPCS: 11042; G0463 ==

== ENCOUNTER 2021-01-05 10:45 | Outpatient (CLI) | payer MEDICARE, OTHER ==
[2021-01-05] MEDS ORDERED: GENTAMICIN 0.1% CREAM 15 GM TUBE ONE (11:28)
[2021-01-05] MEDS ORDERED: MUPIROCIN 2% CREAM 15 GM TUBE TP ONE (11:28)
== END 2021-01-05 23:59 | disposition home or self-care (01) ==
LOC: WOU 10:45
PROVIDERS: ATTEND Specialist
DX: E11.69 Type 2 diabetes mellitus with other specified complication (principal); M86.171 Other acute osteomyelitis, right ankle and foot; M86.671 Other chronic osteomyelitis, right ankle and foot; E11.42 Type 2 diabetes mellitus with diabetic polyneuropathy; E11.622 Type 2 diabetes mellitus with other skin ulcer; L97.313 Non-pressure chronic ulcer of right ankle with necrosis of muscle; E11.621 Type 2 diabetes mellitus with foot ulcer; L97.413 Non-pressure chronic ulcer of right heel and midfoot with necrosis of muscle; Z79.4 Long term (current) use of insulin; Z20.822 Contact with and (suspected) exposure to COVID-19
CPT/HCPCS: G0463

== ENCOUNTER 2021-01-05 11:55 | Outpatient (CLI) | payer MEDICARE, OTHER ==
[2021-01-05 15:47] LABS: BASOPHILS % (AUTO) 0.3 % (0.0-2.0); EOSINOPHILS % (AUTO) 3.1 % (0.0-6.0); HEMATOCRIT 40 % (39-51); HEMOGLOBIN 13.5 g/dL (13.5-17.5); LYMPHOCYTES # (AUTO) 1.5 K/uL (0.8-4.8); LYMPHOCYTES % (AUTO) 27.4 % (20.0-44.0); MEAN CORPUSCULAR HGB CONC 34 g/dl (31.0-36.0); MEAN CORPUSCULAR VOLUME 87 fL (80-96); MONOCYTES # (AUTO) 0.3 K/uL (0.1-1.30); MONOCYTES % (AUTO) 5.7 % (2.0-12.0); NEUTROPHILS # (AUTO) 3.6 K/uL (1.8-8.9); NEUTROPHILS % (AUTO) 63.5 % (43.0-81.0); PLATELET COUNT (AUTO) 321 K/uL (150-450); RED BLOOD CELL COUNT(AUTO) 4.59 MIL/uL (4.5-6.0); WHITE BLOOD COUNT (AUTO) 5.6 K/uL (4.3-11.0)
[2021-01-05 15:51] LABS: CREATININE 1.1 mg/dL (0.6-1.3); POTASSIUM 4.5 mmol/L (3.5-5.1)
== END 2021-01-05 23:59 | disposition home or self-care (01) ==
LOC: LAB 11:55
PROVIDERS: ATTEND Podiatrist Foot & Ankle Surgery
DX: Z01.818 Encounter for other preprocedural examination (principal); M86.671 Other chronic osteomyelitis, right ankle and foot
CPT/HCPCS: 36415; 71045-TC; 80048-TC; 85025-TC

== ENCOUNTER 2021-01-07 10:40 | Outpatient (CLI) | payer MEDICARE, OTHER | END 2021-01-07 23:59 | disposition home health service (06) | LOC: WOU 10:40 | PROVIDERS: ATTEND Podiatrist Foot & Ankle Surgery | DX: E11.621 Type 2 diabetes mellitus with foot ulcer (principal); E11.622 Type 2 diabetes mellitus with other skin ulcer; L97.312 Non-pressure chronic ulcer of right ankle with fat layer exposed; L97.412 Non-pressure chronic ulcer of right heel and midfoot with fat layer exposed; L97.512 Non-pressure chronic ulcer of other part of right foot with fat layer exposed; E11.42 Type 2 diabetes mellitus with diabetic polyneuropathy; E11.69 Type 2 diabetes mellitus with other specified complication; M86.671 Other chronic osteomyelitis, right ankle and foot; Z79.4 Long term (current) use of insulin; Z20.822 Contact with and (suspected) exposure to COVID-19; E78.5 Hyperlipidemia, unspecified | CPT/HCPCS: 11042 ==

== ENCOUNTER 2021-01-11 10:55 | Outpatient (CLI) | payer MEDICARE, OTHER ==
[2021-01-11] MEDS ORDERED: GENTAMICIN 0.1% CREAM 15 GM TUBE ONE (11:51)
[2021-01-11] MEDS ORDERED: MUPIROCIN 2% CREAM 15 GM TUBE TP ONE (11:51)
== END 2021-01-11 23:59 | disposition home health service (06) ==
LOC: WOU 10:55
PROVIDERS: ATTEND Podiatrist Foot & Ankle Surgery
DX: E11.622 Type 2 diabetes mellitus with other skin ulcer (principal); E11.621 Type 2 diabetes mellitus with foot ulcer; L97.312 Non-pressure chronic ulcer of right ankle with fat layer exposed; L97.412 Non-pressure chronic ulcer of right heel and midfoot with fat layer exposed; L97.512 Non-pressure chronic ulcer of other part of right foot with fat layer exposed; E11.42 Type 2 diabetes mellitus with diabetic polyneuropathy; E11.69 Type 2 diabetes mellitus with other specified complication; M86.671 Other chronic osteomyelitis, right ankle and foot; Z79.4 Long term (current) use of insulin; B35.1 Tinea unguium
CPT/HCPCS: 11042

== ENCOUNTER 2021-01-11 12:00 | Outpatient (CLI) | payer MEDICARE, OTHER | END 2021-01-11 23:59 | disposition home or self-care (01) | LOC: LAB 12:00 | PROVIDERS: ATTEND Podiatrist Foot & Ankle Surgery | DX: Z01.812 Encounter for preprocedural laboratory examination (principal); M86.671 Other chronic osteomyelitis, right ankle and foot; Z20.822 Contact with and (suspected) exposure to COVID-19 | CPT/HCPCS: 36415; 84520; 85610; 85730; C9803; U0003 ==

== ENCOUNTER 2021-01-14 05:39 | Inpatient (IN) | payer MEDICARE, OTHER ==
[~2021-01-14] VITALS: Ht 165.1 cm; Wt 63.5 kg
[2021-01-14 06:00] VITALS: BP 129/75
--- NOTE | 2021-01-14 07:00 | NUR ---
RN ADMITTING NOTE PATIENT AMBULATORY, BREATHING EVEN AND UNLABORED. A/O X 4. ABLE TO MAKE NEEDS KNOWN. PATIENT'S BELONGINGS INVENTORIED, ORIENTED PATIENT TO ROOM, RN, TREVON. SKIN ISSUES DOCUMENTED. SAFETY MEASURES IMPLEMENTED. ALL NEEDS MET AND ATTENDED, ALL ORDERS CARRIED OUT. CONSENTS SIGNED WILL ENDORSE TO DAY SHIFT NURSE FOR ROBERTO. PATIENT TAKEN DOWN TO SX BY SURGERY TEAM AT THIS TIME. PATIENT STABLE.
[2021-01-14] MEDS ORDERED: MIDAZOLAM HCL 2 MG/2ML VIAL ONE (07:22)
[2021-01-14] MEDS ORDERED: FENTANYL PF 100MCG/2ML AMPUL ONE (07:22)
[2021-01-14] MEDS ORDERED: ANESTHESIA TRAY IN PYXIS 1 EA TRAY MC ONE (07:30)
[2021-01-14] MEDS ORDERED: POLYMYXIN B SULFATE 0 UNITS ONE (07:34)
[2021-01-14] MEDS ORDERED: BUPIVACAINE 0.25% 75 MG/30 ML VIAL ONE (07:36)
[2021-01-14] MEDS ORDERED: BUPIVACAINE MPF W/EPI 0.25% 30 ML VIAL ONE (07:36)
--- NOTE | 2021-01-14 07:56 | NUR ---
RN NOTE PT OUT FOR SURGERY. RECEIVED REPORT FROM FRANK GRIFFIN.
[2021-01-14] MEDS ORDERED: CLINDAMYCIN 900 MG/6 ML VIAL ONE (08:32)
--- NOTE | 2021-01-14 10:13 | NUR ---
RN NOTE PT BACK FROM DAY SURGERY. PT WILL BE STAYING ONE NIGHT FOR ABX THERAPY. V/S STABLE. PT COMFORTABLE. WILL CONTINUE TO MONITOR.
[2021-01-14 10:14] VITALS: BP 130/84
[2021-01-14] MEDS ORDERED: IBUPROFEN 400 MG TABLET PO PRN (11:30)
[2021-01-14] MEDS ORDERED: HYDROCODONE/APAP 5/325MG TABLET PO PRN ×2 (11:30→12:30)
[2021-01-14] MEDS: CLINDAMYCIN 900 MG in IV D5W 50 ML IV SCH ×2 (12:19→12:26)
[2021-01-14] MEDS ORDERED: DEXTROSE 50%-WATER 50 ML DISP.SYRIN IV PRN (12:30)
[2021-01-14] MEDS ORDERED: ACETAMINOPHEN 325 MG TABLET PO PRN (12:30)
--- NOTE | 2021-01-14 13:00 | NUR ---
RN NOTE PT SELF PULLED OUT IV LINE, STATING THAT HE DOES NOT WANT ONE INSERTED. IV ABX ORDERED. PT REFUSES ALL IV ABX, WISHING THAT THE PILL FORM IS EASIER. NOTIFIED CN. PT EDUCATED ON RISKS AND BENEFITS OF REFUSING IV LINE AND IV ABX. PT CONTINUES TO REFUSE, WILL CONTINUE TO MONITOR.
[2021-01-14 15:50] VITALS: BP 118/76
[2021-01-14] MEDS: CHOLECALCIFEROL 1,000 UNIT TABLET (VIT D3) PO SCH (16:46)
[2021-01-14] MEDS: METFORMIN 500 MG TABLET PO SCH (16:46)
[2021-01-14] MEDS: BLOOD SUGAR DIAGNOSTIC 1 EACH STRIP IN SCH ×2 (16:46→22:00)
[2021-01-14] MEDS: ASCORBIC ACID 500 MG TABLET PO SCH (16:46)
[2021-01-14] MEDS: DOCUSATE SODIUM 100 MG CAPSULE PO SCH (16:46)
--- NOTE | 2021-01-14 17:49 | NUR ---
RN CLOSING NOTE PT IN BED RESTING. A/O X4 AND URDU SPEAKING. COMPLAINT OF PAIN 2/10 PRESENT, PT SELF MANAGING. NO NAUSEA PRESENT. ON RA WITH NO SOB OR RESPIRATORY DISTRESS PRESENT. NO PATHOLOGY COLLECTOR PRESENT. NO EDEMA PRESENT. ON BEDREST WITH URINAL AT BEDSIDE. ON CCHO DIET. NO IV LINE PRESENT D/T PT REFUSAL. PT REFUSE IV ABX. CN AND MD NOTIFIED AND PT EDUCATED. LABS AND ORDERS REVIEWED. SAFETY MEASURES IN PLACE. SIDE RAILS RAISED. BED LOWERED. CALL LIGHT WITHIN REACH. WILL CONTINUE TO MONITOR.
[2021-01-14 20:00] VITALS: BP 112/73
--- NOTE | 2021-01-14 20:00 | NUR ---
MS RN OPENING NOTES: RECEIVED PATIENT AWAKE IN BED BED IN LOW POSITION, CALL LIGHTS WITHIN REACH, NO COMPLAIN OF PAIN AND DISCOMFORT, PATIENT IS A/O X4 STILL REFUSED TO REINSERT IV LINE EXPLAIN RISK AND BENEFITS BUT STILL REFUSED DOCTOR WAS AWARE, ATB WAS SHIFTED TO ORAL, PATIENT KEPT CLEAN AND DRY, ALL NEEDS MET, WILL CONTINUE TO MONITOR.
[2021-01-14] MEDS: LINEZOLID 600 MG TABLET PO SCH (21:52)
[2021-01-14] MEDS ORDERED: INSULIN GLARGINE, 100 UNIT/ML CARTRIDGE SQ SCH (22:00)
[2021-01-14] MEDS: INSULIN REGULAR, HUMAN 100 UNIT/ML 3 ML VIAL SQ PRN (23:05)
[2021-01-15] VITALS: BP 128/81
[2021-01-15 04:00] VITALS: BP 104/62
[2021-01-15] MEDS: BLOOD SUGAR DIAGNOSTIC 1 EACH STRIP IN SCH ×2 (06:59→11:53)
[2021-01-15] MEDS: INSULIN REGULAR, HUMAN 100 UNIT/ML 3 ML VIAL SQ PRN ×2 (07:00→11:56)
--- NOTE | 2021-01-15 07:02 | NUR ---
RN OPENING NOTES RECEIVED PATIENT AWAKE IN BED AT THIS TIME. AOX4, NO SOB NOTED, NO S/O ANY ACUTE DISTRESS. DENIES PAIN AT THIS TIME. ABLE TO VERBALIZE NEEDS. IV ACCESS NOTED IN RAC G#20, INTACT, PATENT AND FLUSHING WELL. PATIENT NOTED WITH RCW [place]. RIGHT FEMORAL SITE NOTED, CLEAN, DRY AND INTACT WITH NO S/O BLEEDING. SAFETY PRECAUTIONS IN PLACE AND MAINTAINED AT ALL TIMES. BED IN LOWEST LOCKED POSITION, SIDE RAILS UPX2, HOB ELEVATED, CALL LIGHT AND TABLE WITHIN REACH. WILL CONTINUE TO MONITOR
--- NOTE | 2021-01-15 07:06 | NUR ---
RN OPENING NOTES RECEIVED PATIENT AWAKE IN BED AT THIS TIME. AOX4. NO SOB NOTED, NO S/O ANY ACUTE DISTRESS. DENIES PAIN AT THIS TIME. ABLE TO MAKE NEEDS KNOWN. NO IV ACCESS NOTED. . PATIENT NOTED. PATIENT NOTED WITH RIGHT FOOT WRAP. SAFETY PRECAUTIONS IN PLACE AND MAINTAINED AT ALL TIMES. BED IN LOWEST LOCKED POSITION, SIDE RAILS UPX2, HOB ELEVATED, CALL LIGHT AND TABLE WITHIN REACH. WILL CONTINUE TO MONITOR
--- NOTE | 2021-01-15 07:20 | NUR ---
RN CLOSING NOTES: PATIENT WAS AWAKE IN BED, BED IN LOW POSITIN, CALL LIGHTS WITHIN REACH, NO COMPLAIN OF PAIN AND DISCOMFORT AT THIS TIME, PATIENT IS A/OX4 ABLT TO MAKE NEEDS KNOWN, WITH BANDAGE ON RIGHT LEG KEPT CLEAN AND DRY, ALL NEEDS MET, ENDORSE TO INCOMING SHIFT/
[2021-01-15] MEDS ORDERED: PANTOPRAZOLE 40 MG TABLET.DR PO SCH (07:30)
[2021-01-15 08:00] VITALS: BP 139/90
[2021-01-15] MEDS: LINEZOLID 600 MG TABLET PO SCH (08:27)
[2021-01-15] MEDS: METFORMIN 500 MG TABLET PO SCH (08:27)
[2021-01-15] MEDS: CHOLECALCIFEROL 1,000 UNIT TABLET (VIT D3) PO SCH (08:27)
[2021-01-15] MEDS: ASCORBIC ACID 500 MG TABLET PO SCH (08:28)
[2021-01-15] MEDS: DOCUSATE SODIUM 100 MG CAPSULE PO SCH (08:29)
[2021-01-15] MEDS ORDERED: Medication Not On Formulary EA (Omeprazole 40 MG) PO SCH (09:00)
[2021-01-15] MEDS ORDERED: Medication Not On Formulary EA (Empagliflozin (Jardiance) 10 MG) PO SCH (09:00)
[2021-01-15 11:20] LABS: BASOPHILS % (AUTO) 0.6 % (0.0-2.0); EOSINOPHILS % (AUTO) 3.2 % (0.0-6.0); HEMATOCRIT 41 % (39-51); HEMOGLOBIN 13.8 g/dL (13.5-17.5); LYMPHOCYTES # (AUTO) 1.3 K/uL (0.8-4.8); LYMPHOCYTES % (AUTO) 20.9 % (20.0-44.0); MEAN CORPUSCULAR HGB CONC 34 g/dl (31.0-36.0); MEAN CORPUSCULAR VOLUME 87 fL (80-96); MONOCYTES # (AUTO) 0.4 K/uL (0.1-1.30); MONOCYTES % (AUTO) 6.2 % (2.0-12.0); NEUTROPHILS # (AUTO) 4.2 K/uL (1.8-8.9); NEUTROPHILS % (AUTO) 69.1 % (43.0-81.0); PLATELET COUNT (AUTO) 266 K/uL (150-450); RED BLOOD CELL COUNT(AUTO) 4.74 MIL/uL (4.5-6.0); WHITE BLOOD COUNT (AUTO) 6.1 K/uL (4.3-11.0)
[2021-01-15 11:34] LABS: CALCIUM, SERUM 8.8 mg/dL (8.5-10.1); CREATININE 0.9 mg/dL (0.6-1.3); MAGNESIUM 1.9 mg/dL (1.8-2.4); PHOSPHORUS 3.9 mg/dL (2.5-4.9); POTASSIUM 4.4 mmol/L (3.5-5.1)
--- NOTE | 2021-01-15 12:58 | NUR ---
SWAGER OPERATOR NOTES PATIENT DISCHARGED HOME AT THIS TIME. PATIENT MEDICALLY STABLE AND MEDICALLY CLEARED FOR DISCHARGE BY DR QUICK. ALL CARE, NEEDS, MEDICATIONS AND TREATMENT ADMINISTERED ANTICIPATED PER ORDER. ALL DISCHARGE INSTRUCTIONS PROVIDED. PATIENT VERBALIZED UNDERSTANDING. UNABLE TO TAKE PICTURES DUE TO PATIENT HAS CEMENT WRAP ON, FROM FOOT TO ORTIZ, SHON CHARGE NURSE MADE AWARE. ALL BELONGINGS ACCOUNTED FOR SIGNED AND WITH PATIENT. BELONGINGS IN SAFE PICKED UP AND RETURNED TO PATIENT, SEAL OPENED IN THE PRESENCE OF PATIENT, LIBRA LESTER, CONTENT VERIFIED AND CONFIRMED BY PATIENT. ID BAND REMOVED. PATIENT TRANSPORTED FROM UNIT IN STABLE CONDITION BY WHEEL CHAIR BY LIBRA TO [facility]. PATIENT PICKED UP IN PRIVATE CAR BY PARENTS. DR QUICK, AND SHON, CHARGE NURSE AWARE.
== END 2021-01-15 13:00 | disposition home health service (06) | DRG 623 ==
LOC: DS 05:39 → MED 05:40
PROVIDERS: ADMIT Internal Medicine; ATTEND Internal Medicine
PROC: 0JBQ0ZZ Excision of Right Foot Subcutaneous Tissue and Fascia, Open Approach (ICD-10-PCS; principal; 2021-01-14)
PROC: 0QBJ0ZX Excision of Right Fibula, Open Approach, Diagnostic (ICD-10-PCS; 2021-01-14)
PROC: 0QBL0ZX Excision of Right Tarsal, Open Approach, Diagnostic (ICD-10-PCS; 2021-01-14)
DX: E11.69 Type 2 diabetes mellitus with other specified complication (principal); M86.671 Other chronic osteomyelitis, right ankle and foot; Z88.0 Allergy status to penicillin; E11.40 Type 2 diabetes mellitus with diabetic neuropathy, unspecified; E11.621 Type 2 diabetes mellitus with foot ulcer; I10 Essential (primary) hypertension; Z79.4 Long term (current) use of insulin; Z79.899 Other long term (current) drug therapy; Z87.311 Personal history of (healed) other pathological fracture; Z91.19 Patient's noncompliance with other medical treatment and regimen; Z88.1 Allergy status to other antibiotic agents; Z86.16 Personal history of COVID-19; L97.519 Non-pressure chronic ulcer of other part of right foot with unspecified severity
CPT/HCPCS: 36415; 80048-TC; 82962-TC; 83735-TC; 84100-TC; 84520-TC; 85025-TC; 85610-TC; 85730-TC; 87070-TC; 87081-TC; 88305-TC; 88311-TC; A6209; C1713; C9803; G0378; J1815; J2250; J3010; J3490; J7030; J7060; U0003

== ENCOUNTER 2021-01-18 09:15 | Outpatient (CLI) | payer MEDICARE, OTHER | END 2021-01-18 23:59 | disposition home health service (06) | LOC: WOU 09:15 | PROVIDERS: ATTEND Podiatrist Foot & Ankle Surgery | DX: E11.621 Type 2 diabetes mellitus with foot ulcer (principal); L97.512 Non-pressure chronic ulcer of other part of right foot with fat layer exposed; E11.622 Type 2 diabetes mellitus with other skin ulcer; L97.312 Non-pressure chronic ulcer of right ankle with fat layer exposed; E11.42 Type 2 diabetes mellitus with diabetic polyneuropathy; E11.69 Type 2 diabetes mellitus with other specified complication; M86.671 Other chronic osteomyelitis, right ankle and foot; Z79.4 Long term (current) use of insulin; B35.1 Tinea unguium | CPT/HCPCS: 11042 ==

== ENCOUNTER → 2021-01-20 | Outpatient (CLI) | payer MEDICARE, OTHER | END | disposition home or self-care (01) | LOC: WOU 11:00 | PROVIDERS: ATTEND Registered Nurse | DX: Z09 Encounter for follow-up examination after completed treatment for conditions other than malignant neoplasm (principal); Z87.39 Personal history of other diseases of the musculoskeletal system and connective tissue; E11.621 Type 2 diabetes mellitus with foot ulcer; L97.419 Non-pressure chronic ulcer of right heel and midfoot with unspecified severity; Z79.4 Long term (current) use of insulin; E11.40 Type 2 diabetes mellitus with diabetic neuropathy, unspecified; I10 Essential (primary) hypertension; Z86.16 Personal history of COVID-19; Z91.19 Patient's noncompliance with other medical treatment and regimen | CPT/HCPCS: G0463 ==

== ENCOUNTER 2021-01-21 08:30 | Outpatient (CLI) | payer MEDICARE, OTHER ==
[2021-01-21] MEDS ORDERED: COLLAGENASE 5 GM TUBE UD TP ONE (09:11)
== END 2021-01-21 23:59 | disposition home health service (06) ==
LOC: WOU 08:30
PROVIDERS: ATTEND Podiatrist Foot & Ankle Surgery
DX: E11.622 Type 2 diabetes mellitus with other skin ulcer (principal); E11.621 Type 2 diabetes mellitus with foot ulcer; L97.312 Non-pressure chronic ulcer of right ankle with fat layer exposed; L97.412 Non-pressure chronic ulcer of right heel and midfoot with fat layer exposed; L97.512 Non-pressure chronic ulcer of other part of right foot with fat layer exposed; E11.42 Type 2 diabetes mellitus with diabetic polyneuropathy; E11.69 Type 2 diabetes mellitus with other specified complication; M86.671 Other chronic osteomyelitis, right ankle and foot; B35.1 Tinea unguium; Z79.4 Long term (current) use of insulin
CPT/HCPCS: 11042

== ENCOUNTER 2021-01-25 08:45 | Outpatient (CLI) | payer MEDICARE, OTHER | END 2021-01-25 23:59 | disposition home health service (06) | LOC: WOU 08:45 | PROVIDERS: ATTEND Podiatrist Foot & Ankle Surgery | DX: E11.621 Type 2 diabetes mellitus with foot ulcer (principal); L97.522 Non-pressure chronic ulcer of other part of left foot with fat layer exposed; L97.512 Non-pressure chronic ulcer of other part of right foot with fat layer exposed; L97.412 Non-pressure chronic ulcer of right heel and midfoot with fat layer exposed; E11.622 Type 2 diabetes mellitus with other skin ulcer; L97.312 Non-pressure chronic ulcer of right ankle with fat layer exposed; S81.811A Laceration without foreign body, right lower leg, initial encounter; X50.9XXA Other and unspecified overexertion or strenuous movements or postures, initial encounter; Y92.89 Other specified places as the place of occurrence of the external cause; L84 Corns and callosities; B35.1 Tinea unguium; Z79.4 Long term (current) use of insulin | CPT/HCPCS: 11042 ==

== ENCOUNTER 2021-01-28 10:50 | Outpatient (CLI) | payer MEDICARE, OTHER ==
[2021-01-28] MEDS ORDERED: COLLAGENASE 5 GM TUBE UD TP ONE (12:39)
== END 2021-01-28 23:59 | disposition home health service (06) ==
LOC: WOU 10:50
PROVIDERS: ATTEND Podiatrist Foot & Ankle Surgery
DX: E11.621 Type 2 diabetes mellitus with foot ulcer (principal); L97.512 Non-pressure chronic ulcer of other part of right foot with fat layer exposed; L97.412 Non-pressure chronic ulcer of right heel and midfoot with fat layer exposed; E11.622 Type 2 diabetes mellitus with other skin ulcer; L97.312 Non-pressure chronic ulcer of right ankle with fat layer exposed; Z79.4 Long term (current) use of insulin; S81.811A Laceration without foreign body, right lower leg, initial encounter; X50.9XXA Other and unspecified overexertion or strenuous movements or postures, initial encounter; Y92.89 Other specified places as the place of occurrence of the external cause; L84 Corns and callosities; B35.1 Tinea unguium
CPT/HCPCS: 11042

== ENCOUNTER 2021-02-01 09:00 | Outpatient (CLI) | payer MEDICARE, OTHER ==
[2021-02-01] MEDS ORDERED: COLLAGENASE 5 GM TUBE UD TP ONE (10:06)
[2021-02-01 11:05] LABS: BASOPHILS % (AUTO) 0.6 % (0.0-2.0); EOSINOPHILS % (AUTO) 2.6 % (0.0-6.0); HEMATOCRIT 41 % (39-51); HEMOGLOBIN 13.8 g/dL (13.5-17.5); LYMPHOCYTES # (AUTO) 1.5 K/uL (0.8-4.8); LYMPHOCYTES % (AUTO) 18.6 % (20.0-44.0); MEAN CORPUSCULAR HGB CONC 34 g/dl (31.0-36.0); MEAN CORPUSCULAR VOLUME 86 fL (80-96); MONOCYTES # (AUTO) 0.5 K/uL (0.1-1.30); MONOCYTES % (AUTO) 6.6 % (2.0-12.0); NEUTROPHILS # (AUTO) 5.7 K/uL (1.8-8.9); NEUTROPHILS % (AUTO) 71.6 % (43.0-81.0); PLATELET COUNT (AUTO) 329 K/uL (150-450); RED BLOOD CELL COUNT(AUTO) 4.79 MIL/uL (4.5-6.0)
[2021-02-01 11:19] LABS: ALBUMIN 3.5 g/dL (3.4-5.0); C-REACTIVE PROTEIN 0.5 mg/dL (0.0-0.9)
== END 2021-02-01 23:59 | disposition home health service (06) ==
LOC: WOU 09:00
PROVIDERS: ATTEND Podiatrist Foot & Ankle Surgery
DX: E11.621 Type 2 diabetes mellitus with foot ulcer (principal); L97.512 Non-pressure chronic ulcer of other part of right foot with fat layer exposed; L97.322 Non-pressure chronic ulcer of left ankle with fat layer exposed; L97.312 Non-pressure chronic ulcer of right ankle with fat layer exposed; L97.412 Non-pressure chronic ulcer of right heel and midfoot with fat layer exposed; E11.622 Type 2 diabetes mellitus with other skin ulcer; E11.42 Type 2 diabetes mellitus with diabetic polyneuropathy; Z79.4 Long term (current) use of insulin; S81.811A Laceration without foreign body, right lower leg, initial encounter; X50.9XXA Other and unspecified overexertion or strenuous movements or postures, initial encounter; Y92.89 Other specified places as the place of occurrence of the external cause; B35.1 Tinea unguium
CPT/HCPCS: 11042; 36415; 82040; 83036; 84145; 85025; 85652; 86140; G0463

== ENCOUNTER 2021-02-04 08:45 | Outpatient (CLI) | payer MEDICARE, OTHER ==
[~2021-02-04] VITALS: Ht 170.2 cm; Wt 57.6 kg
[2021-02-04] MEDS ORDERED: SILVER SULFADIAZINE CREAM 25 GM TUBE ONE (10:13)
[2021-02-04] MEDS ORDERED: CEFTRIAXONE 1 G VIAL IM ONE (10:30)
[2021-02-04] MEDS ORDERED: CADEXOMER IODINE UD 5 GM TUBE ONE (10:36)
== END 2021-02-04 23:59 | disposition home health service (06) ==
LOC: WOU 08:45
PROVIDERS: ATTEND Podiatrist Foot & Ankle Surgery
DX: E11.621 Type 2 diabetes mellitus with foot ulcer (principal); L97.512 Non-pressure chronic ulcer of other part of right foot with fat layer exposed; L97.515 Non-pressure chronic ulcer of other part of right foot with muscle involvement without evidence of necrosis; E11.622 Type 2 diabetes mellitus with other skin ulcer; L97.312 Non-pressure chronic ulcer of right ankle with fat layer exposed; Z79.4 Long term (current) use of insulin; S91.141 Puncture wound with foreign body of right great toe without damage to nail; W22.8XXD Striking against or struck by other objects, subsequent encounter; E11.42 Type 2 diabetes mellitus with diabetic polyneuropathy; E11.69 Type 2 diabetes mellitus with other specified complication; M86.671 Other chronic osteomyelitis, right ankle and foot; B35.1 Tinea unguium
CPT/HCPCS: 11042; 11043; 87070-TC; 87075-TC; 87186-TC; J0696

== ENCOUNTER 2021-02-08 09:00 | Outpatient (CLI) | payer MEDICARE, OTHER ==
[2021-02-08] MEDS ORDERED: LIDOCAINE SOLN 4% 50 ML BOTTLE ONE (09:25)
[2021-02-08] MEDS ORDERED: CADEXOMER IODINE UD 5 GM TUBE ONE (10:32)
[2021-02-08] MEDS ORDERED: CLOTRIMAZOLE 1% 15 GM TUBE TP ONE (10:38)
[2021-02-08] MEDS ORDERED: UREA 10% -AHA 4% CREAM 57 GM TUBE ONE (10:38)
== END 2021-02-08 23:59 | disposition home health service (06) ==
LOC: WOU 09:00
PROVIDERS: ATTEND Podiatrist Foot & Ankle Surgery
DX: E11.621 Type 2 diabetes mellitus with foot ulcer (principal); E11.622 Type 2 diabetes mellitus with other skin ulcer; L97.312 Non-pressure chronic ulcer of right ankle with fat layer exposed; L97.512 Non-pressure chronic ulcer of other part of right foot with fat layer exposed; L97.515 Non-pressure chronic ulcer of other part of right foot with muscle involvement without evidence of necrosis; L84 Corns and callosities; B35.1 Tinea unguium; S91.141A Puncture wound with foreign body of right great toe without damage to nail, initial encounter; W22.8XXA Striking against or struck by other objects, initial encounter; Y92.89 Other specified places as the place of occurrence of the external cause; B95.61 Methicillin susceptible Staphylococcus aureus infection as the cause of diseases classified elsewhere; Z16.29 Resistance to other single specified antibiotic; Z79.4 Long term (current) use of insulin
CPT/HCPCS: 11043

== ENCOUNTER 2021-02-11 09:00 | Outpatient (CLI) | payer MEDICARE, OTHER ==
[2021-02-11] MEDS ORDERED: COLLAGENASE 5 GM TUBE UD TP ONE (09:37)
== END 2021-02-11 23:59 | disposition home health service (06) ==
LOC: WOU 09:00
PROVIDERS: ATTEND Podiatrist Foot & Ankle Surgery
DX: E11.621 Type 2 diabetes mellitus with foot ulcer (principal); L97.412 Non-pressure chronic ulcer of right heel and midfoot with fat layer exposed; L97.515 Non-pressure chronic ulcer of other part of right foot with muscle involvement without evidence of necrosis; L97.513 Non-pressure chronic ulcer of other part of right foot with necrosis of muscle; E11.622 Type 2 diabetes mellitus with other skin ulcer; L97.312 Non-pressure chronic ulcer of right ankle with fat layer exposed; E11.42 Type 2 diabetes mellitus with diabetic polyneuropathy; Z79.4 Long term (current) use of insulin; S91.341A Puncture wound with foreign body, right foot, initial encounter; W22.8XXA Striking against or struck by other objects, initial encounter; Y92.89 Other specified places as the place of occurrence of the external cause; B95.61 Methicillin susceptible Staphylococcus aureus infection as the cause of diseases classified elsewhere; Z16.29 Resistance to other single specified antibiotic; B35.1 Tinea unguium
CPT/HCPCS: 11043

== ENCOUNTER 2021-02-15 09:30 | Outpatient (CLI) | payer MEDICARE, OTHER ==
[2021-02-15] MEDS ORDERED: COLLAGENASE 5 GM TUBE UD TP ONE (10:13)
[2021-02-16] MEDS ORDERED: COLLAGENASE 5 GM TUBE UD TP ONE (09:37)
== END 2021-02-15 23:59 | disposition home health service (06) ==
LOC: WOU 09:30
PROVIDERS: ATTEND Podiatrist Foot & Ankle Surgery
DX: E11.621 Type 2 diabetes mellitus with foot ulcer (principal); L97.513 Non-pressure chronic ulcer of other part of right foot with necrosis of muscle; L97.412 Non-pressure chronic ulcer of right heel and midfoot with fat layer exposed; E11.622 Type 2 diabetes mellitus with other skin ulcer; L97.312 Non-pressure chronic ulcer of right ankle with fat layer exposed; E11.42 Type 2 diabetes mellitus with diabetic polyneuropathy; E11.69 Type 2 diabetes mellitus with other specified complication; M86.671 Other chronic osteomyelitis, right ankle and foot; Z79.4 Long term (current) use of insulin; S91.341A Puncture wound with foreign body, right foot, initial encounter; W22.8XXA Striking against or struck by other objects, initial encounter; Y92.89 Other specified places as the place of occurrence of the external cause; B95.61 Methicillin susceptible Staphylococcus aureus infection as the cause of diseases classified elsewhere; Z16.29 Resistance to other single specified antibiotic; B35.1 Tinea unguium; Z20.822 Contact with and (suspected) exposure to COVID-19
CPT/HCPCS: 11043

== ENCOUNTER 2021-02-16 08:50 | Outpatient (CLI) | payer MEDICARE, OTHER | END 2021-02-16 23:59 | disposition home or self-care (01) | LOC: VASLAB 08:50 | PROVIDERS: ATTEND Internal Medicine | DX: E11.621 Type 2 diabetes mellitus with foot ulcer (principal); L97.519 Non-pressure chronic ulcer of other part of right foot with unspecified severity; E11.622 Type 2 diabetes mellitus with other skin ulcer; L97.319 Non-pressure chronic ulcer of right ankle with unspecified severity; E11.69 Type 2 diabetes mellitus with other specified complication; M86.9 Osteomyelitis, unspecified; Z79.4 Long term (current) use of insulin; E78.5 Hyperlipidemia, unspecified; Z91.19 Patient's noncompliance with other medical treatment and regimen | CPT/HCPCS: G0463 ==

== ENCOUNTER 2021-02-18 08:30 | Outpatient (CLI) | payer MEDICARE, OTHER ==
[2021-02-18] MEDS ORDERED: COLLAGENASE 5 GM TUBE UD TP ONE (09:10)
== END 2021-02-18 23:59 | disposition home health service (06) ==
LOC: WOU 08:30
PROVIDERS: ATTEND Podiatrist Foot & Ankle Surgery
DX: E11.621 Type 2 diabetes mellitus with foot ulcer (principal); E11.622 Type 2 diabetes mellitus with other skin ulcer; L97.413 Non-pressure chronic ulcer of right heel and midfoot with necrosis of muscle; L97.513 Non-pressure chronic ulcer of other part of right foot with necrosis of muscle; L97.313 Non-pressure chronic ulcer of right ankle with necrosis of muscle; Z79.4 Long term (current) use of insulin; E11.42 Type 2 diabetes mellitus with diabetic polyneuropathy; E11.69 Type 2 diabetes mellitus with other specified complication; M86.671 Other chronic osteomyelitis, right ankle and foot; B35.1 Tinea unguium; S91.341A Puncture wound with foreign body, right foot, initial encounter; W22.8XXA Striking against or struck by other objects, initial encounter; Y92.89 Other specified places as the place of occurrence of the external cause; Z91.19 Patient's noncompliance with other medical treatment and regimen
CPT/HCPCS: 11043

== ENCOUNTER 2021-02-22 09:00 | Outpatient (CLI) | payer MEDICARE, OTHER ==
[2021-02-22] MEDS ORDERED: COLLAGENASE 5 GM TUBE UD TP ONE (09:18)
== END 2021-02-22 23:59 | disposition home health service (06) ==
LOC: WOU 09:00
PROVIDERS: ATTEND Podiatrist Foot & Ankle Surgery
DX: E11.621 Type 2 diabetes mellitus with foot ulcer (principal); E11.622 Type 2 diabetes mellitus with other skin ulcer; L97.313 Non-pressure chronic ulcer of right ankle with necrosis of muscle; L97.513 Non-pressure chronic ulcer of other part of right foot with necrosis of muscle; L97.413 Non-pressure chronic ulcer of right heel and midfoot with necrosis of muscle; E11.42 Type 2 diabetes mellitus with diabetic polyneuropathy; E11.69 Type 2 diabetes mellitus with other specified complication; M86.671 Other chronic osteomyelitis, right ankle and foot; B95.7 Other staphylococcus as the cause of diseases classified elsewhere; Z79.4 Long term (current) use of insulin; B35.1 Tinea unguium; Z91.19 Patient's noncompliance with other medical treatment and regimen
CPT/HCPCS: 15275; A6209; Q4133

== ENCOUNTER 2021-02-25 08:40 | Outpatient (CLI) | payer MEDICARE, OTHER | END 2021-02-25 23:59 | disposition home health service (06) | LOC: WOU 08:40 | PROVIDERS: ATTEND Podiatrist Foot & Ankle Surgery | DX: E11.621 Type 2 diabetes mellitus with foot ulcer (principal); L97.413 Non-pressure chronic ulcer of right heel and midfoot with necrosis of muscle; E11.622 Type 2 diabetes mellitus with other skin ulcer; L97.312 Non-pressure chronic ulcer of right ankle with fat layer exposed; E11.42 Type 2 diabetes mellitus with diabetic polyneuropathy; E11.69 Type 2 diabetes mellitus with other specified complication; M86.671 Other chronic osteomyelitis, right ankle and foot; B35.1 Tinea unguium; Z91.19 Patient's noncompliance with other medical treatment and regimen; S91.341D Puncture wound with foreign body, right foot, subsequent encounter; W22.8XXD Striking against or struck by other objects, subsequent encounter; Z79.4 Long term (current) use of insulin | CPT/HCPCS: 11042; A6209 ==

== ENCOUNTER 2021-02-25 09:30 | Outpatient (CLI) | payer MEDICARE, OTHER | END 2021-02-25 23:59 | disposition home or self-care (01) | LOC: MRI 09:30 | PROVIDERS: ATTEND Podiatrist Foot & Ankle Surgery | DX: E11.621 Type 2 diabetes mellitus with foot ulcer (principal); M86.8X7 Other osteomyelitis, ankle and foot; M79.89 Other specified soft tissue disorders | CPT/HCPCS: 73718-TC; 73721-TC ==

== ENCOUNTER 2021-03-01 08:30 | Outpatient (CLI) | payer MEDICARE, OTHER ==
[2021-03-01 10:37] LABS: CREATININE 0.9 mg/dL (0.6-1.3); POTASSIUM 3.8 mmol/L (3.5-5.1)
[2021-03-01 10:58] LABS: ALBUMIN 3.2 g/dL (3.4-5.0)
[2021-03-01 12:36] LABS: C-REACTIVE PROTEIN 12.4 mg/dL (0.0-0.9)
[2021-03-01 12:52] LABS: BASOPHILS % (AUTO) 0.4 % (0.0-2.0); EOSINOPHILS % (AUTO) 4.6 % (0.0-6.0); HEMATOCRIT 39 % (39-51); HEMOGLOBIN 13.2 g/dL (13.5-17.5); LYMPHOCYTES # (AUTO) 1.1 K/uL (0.8-4.8); LYMPHOCYTES % (AUTO) 25.5 % (20.0-44.0); MEAN CORPUSCULAR HGB CONC 34 g/dl (31.0-36.0); MEAN CORPUSCULAR VOLUME 83 fL (80-96); MONOCYTES # (AUTO) 0.5 K/uL (0.1-1.30); MONOCYTES % (AUTO) 11.7 % (2.0-12.0); NEUTROPHILS # (AUTO) 2.5 K/uL (1.8-8.9); NEUTROPHILS % (AUTO) 57.8 % (43.0-81.0); PLATELET COUNT (AUTO) 196 K/uL (150-450); RED BLOOD CELL COUNT(AUTO) 4.71 MIL/uL (4.5-6.0); WHITE BLOOD COUNT (AUTO) 4.3 K/uL (4.3-11.0)
== END 2021-03-01 23:59 | disposition home health service (06) ==
LOC: WOU 08:30
PROVIDERS: ATTEND Podiatrist Foot & Ankle Surgery
DX: E11.621 Type 2 diabetes mellitus with foot ulcer (principal); E11.622 Type 2 diabetes mellitus with other skin ulcer; L97.412 Non-pressure chronic ulcer of right heel and midfoot with fat layer exposed; L97.312 Non-pressure chronic ulcer of right ankle with fat layer exposed; Z79.4 Long term (current) use of insulin; E11.42 Type 2 diabetes mellitus with diabetic polyneuropathy; E11.69 Type 2 diabetes mellitus with other specified complication; M86.671 Other chronic osteomyelitis, right ankle and foot; B35.1 Tinea unguium
CPT/HCPCS: 11042; 11043; 36415; 80048-TC; 82040-TC; 85025-TC; 85652-TC; 86140-TC; 87070-TC; 87075-TC; 87186-TC

== ENCOUNTER 2021-03-02 14:00 | Outpatient (CLI) | payer MEDICARE, OTHER | END 2021-03-02 23:59 | disposition home or self-care (01) | LOC: WOU 14:00 | PROVIDERS: ATTEND Registered Nurse | DX: E11.69 Type 2 diabetes mellitus with other specified complication (principal); M86.671 Other chronic osteomyelitis, right ankle and foot; I10 Essential (primary) hypertension; Z91.19 Patient's noncompliance with other medical treatment and regimen; Z86.16 Personal history of COVID-19; Z79.4 Long term (current) use of insulin | CPT/HCPCS: G0463 ==

== ENCOUNTER 2021-03-04 09:00 | Outpatient (CLI) | payer MEDICARE, OTHER ==
[2021-03-04] MEDS ORDERED: COLLAGENASE 5 GM TUBE UD TP ONE (10:24)
== END 2021-03-04 23:59 | disposition home health service (06) ==
LOC: WOU 09:00
PROVIDERS: ATTEND Podiatrist Foot & Ankle Surgery
DX: E11.621 Type 2 diabetes mellitus with foot ulcer (principal); L97.412 Non-pressure chronic ulcer of right heel and midfoot with fat layer exposed; L97.515 Non-pressure chronic ulcer of other part of right foot with muscle involvement without evidence of necrosis; E11.622 Type 2 diabetes mellitus with other skin ulcer; L97.312 Non-pressure chronic ulcer of right ankle with fat layer exposed; E11.42 Type 2 diabetes mellitus with diabetic polyneuropathy; E11.69 Type 2 diabetes mellitus with other specified complication; M86.671 Other chronic osteomyelitis, right ankle and foot; B35.1 Tinea unguium; Z79.4 Long term (current) use of insulin
CPT/HCPCS: 11042; 11043

== ENCOUNTER 2021-03-08 08:20 | Outpatient (CLI) | payer MEDICARE, OTHER | END 2021-03-08 23:59 | disposition home health service (06) | LOC: WOU 08:20 | PROVIDERS: ATTEND Podiatrist Foot & Ankle Surgery | DX: E11.621 Type 2 diabetes mellitus with foot ulcer (principal); L97.512 Non-pressure chronic ulcer of other part of right foot with fat layer exposed; L97.513 Non-pressure chronic ulcer of other part of right foot with necrosis of muscle; E11.622 Type 2 diabetes mellitus with other skin ulcer; L97.312 Non-pressure chronic ulcer of right ankle with fat layer exposed; E11.42 Type 2 diabetes mellitus with diabetic polyneuropathy; E11.69 Type 2 diabetes mellitus with other specified complication; M86.671 Other chronic osteomyelitis, right ankle and foot; B35.1 Tinea unguium; Z79.4 Long term (current) use of insulin | CPT/HCPCS: 11042; 11043; 87070-TC; 87075-TC; 87186-TC ==

== ENCOUNTER 2021-03-11 08:40 | Outpatient (CLI) | payer MEDICARE, OTHER ==
[2021-03-11] MEDS ORDERED: COLLAGENASE 5 GM TUBE UD TP ONE (09:49)
== END 2021-03-11 23:59 | disposition home health service (06) ==
LOC: WOU 08:40
PROVIDERS: ATTEND Podiatrist Foot & Ankle Surgery
DX: E11.621 Type 2 diabetes mellitus with foot ulcer (principal); L97.512 Non-pressure chronic ulcer of other part of right foot with fat layer exposed; L97.513 Non-pressure chronic ulcer of other part of right foot with necrosis of muscle; E11.622 Type 2 diabetes mellitus with other skin ulcer; L97.312 Non-pressure chronic ulcer of right ankle with fat layer exposed; E11.42 Type 2 diabetes mellitus with diabetic polyneuropathy; E11.69 Type 2 diabetes mellitus with other specified complication; M86.671 Other chronic osteomyelitis, right ankle and foot; Z79.4 Long term (current) use of insulin
CPT/HCPCS: 11042; 11043

== ENCOUNTER 2021-03-15 08:20 | Outpatient (CLI) | payer MEDICARE, OTHER ==
[2021-03-15] MEDS ORDERED: COLLAGENASE 5 GM TUBE UD TP ONE (08:55)
== END 2021-03-15 23:59 | disposition home or self-care (01) ==
LOC: WOU 08:20
PROVIDERS: ATTEND Podiatrist Foot & Ankle Surgery
DX: E11.621 Type 2 diabetes mellitus with foot ulcer (principal); L97.512 Non-pressure chronic ulcer of other part of right foot with fat layer exposed; L97.515 Non-pressure chronic ulcer of other part of right foot with muscle involvement without evidence of necrosis; E11.622 Type 2 diabetes mellitus with other skin ulcer; L97.315 Non-pressure chronic ulcer of right ankle with muscle involvement without evidence of necrosis; L97.415 Non-pressure chronic ulcer of right heel and midfoot with muscle involvement without evidence of necrosis; Z79.4 Long term (current) use of insulin; Z79.84 Long term (current) use of oral hypoglycemic drugs; E11.42 Type 2 diabetes mellitus with diabetic polyneuropathy; E11.69 Type 2 diabetes mellitus with other specified complication; M86.671 Other chronic osteomyelitis, right ankle and foot; B95.7 Other staphylococcus as the cause of diseases classified elsewhere
CPT/HCPCS: 11043

== ENCOUNTER 2021-03-18 08:20 | Outpatient (CLI) | payer MEDICARE, OTHER ==
[2021-03-18] MEDS ORDERED: COLLAGENASE 5 GM TUBE UD TP ONE (09:00)
== END 2021-03-18 23:59 | disposition home health service (06) ==
LOC: WOU 08:20
PROVIDERS: ATTEND Podiatrist Foot & Ankle Surgery
DX: E11.621 Type 2 diabetes mellitus with foot ulcer (principal); L97.512 Non-pressure chronic ulcer of other part of right foot with fat layer exposed; L97.515 Non-pressure chronic ulcer of other part of right foot with muscle involvement without evidence of necrosis; E11.622 Type 2 diabetes mellitus with other skin ulcer; L97.315 Non-pressure chronic ulcer of right ankle with muscle involvement without evidence of necrosis; E11.42 Type 2 diabetes mellitus with diabetic polyneuropathy; E11.69 Type 2 diabetes mellitus with other specified complication; M86.671 Other chronic osteomyelitis, right ankle and foot; B35.1 Tinea unguium; B95.7 Other staphylococcus as the cause of diseases classified elsewhere; Z79.4 Long term (current) use of insulin; Z79.84 Long term (current) use of oral hypoglycemic drugs
CPT/HCPCS: 11043

== ENCOUNTER 2021-03-22 08:30 | Outpatient (CLI) | payer MEDICARE, OTHER ==
[2021-03-22] MEDS ORDERED: COLLAGENASE 5 GM TUBE UD TP ONE ×2 (08:50→08:51)
== END 2021-03-22 23:59 | disposition home health service (06) ==
LOC: WOU 08:30
PROVIDERS: ATTEND Podiatrist Foot & Ankle Surgery
DX: E11.621 Type 2 diabetes mellitus with foot ulcer (principal); L97.512 Non-pressure chronic ulcer of other part of right foot with fat layer exposed; L97.515 Non-pressure chronic ulcer of other part of right foot with muscle involvement without evidence of necrosis; E11.622 Type 2 diabetes mellitus with other skin ulcer; L97.315 Non-pressure chronic ulcer of right ankle with muscle involvement without evidence of necrosis; E11.42 Type 2 diabetes mellitus with diabetic polyneuropathy; E11.69 Type 2 diabetes mellitus with other specified complication; M86.671 Other chronic osteomyelitis, right ankle and foot; B35.1 Tinea unguium; Z91.19 Patient's noncompliance with other medical treatment and regimen; Z79.4 Long term (current) use of insulin; Z79.84 Long term (current) use of oral hypoglycemic drugs
CPT/HCPCS: 11043; 87070-TC; 87075-TC; 87186-TC

== ENCOUNTER 2021-03-29 08:00 | Outpatient (CLI) | payer MEDICARE, OTHER | END 2021-03-29 23:59 | disposition home or self-care (01) | LOC: WOU 08:00 | PROVIDERS: ATTEND Podiatrist Foot & Ankle Surgery | DX: E11.621 Type 2 diabetes mellitus with foot ulcer (principal); L97.415 Non-pressure chronic ulcer of right heel and midfoot with muscle involvement without evidence of necrosis; L97.515 Non-pressure chronic ulcer of other part of right foot with muscle involvement without evidence of necrosis; L97.518 Non-pressure chronic ulcer of other part of right foot with other specified severity; E11.622 Type 2 diabetes mellitus with other skin ulcer; L97.315 Non-pressure chronic ulcer of right ankle with muscle involvement without evidence of necrosis; E11.42 Type 2 diabetes mellitus with diabetic polyneuropathy; E11.69 Type 2 diabetes mellitus with other specified complication; M86.671 Other chronic osteomyelitis, right ankle and foot; B95.7 Other staphylococcus as the cause of diseases classified elsewhere; B35.1 Tinea unguium; Z79.4 Long term (current) use of insulin; Z79.84 Long term (current) use of oral hypoglycemic drugs | CPT/HCPCS: 11043; 87070-TC; 87075-TC; 87186-TC ==

== ENCOUNTER 2021-04-01 08:45 | Outpatient (CLI) | payer MEDICARE, OTHER | END 2021-04-01 23:59 | disposition home health service (06) | LOC: WOU 08:45 | PROVIDERS: ATTEND Podiatrist Foot & Ankle Surgery | DX: E11.621 Type 2 diabetes mellitus with foot ulcer (principal); L97.512 Non-pressure chronic ulcer of other part of right foot with fat layer exposed; L97.412 Non-pressure chronic ulcer of right heel and midfoot with fat layer exposed; E11.622 Type 2 diabetes mellitus with other skin ulcer; L97.312 Non-pressure chronic ulcer of right ankle with fat layer exposed; E11.42 Type 2 diabetes mellitus with diabetic polyneuropathy; E11.69 Type 2 diabetes mellitus with other specified complication; M86.671 Other chronic osteomyelitis, right ankle and foot; B35.1 Tinea unguium; B95.7 Other staphylococcus as the cause of diseases classified elsewhere; Z79.4 Long term (current) use of insulin; Z79.84 Long term (current) use of oral hypoglycemic drugs | CPT/HCPCS: 11042 ==

== ENCOUNTER 2021-04-05 08:19 | Outpatient (CLI) | payer MEDICARE, OTHER | END 2021-04-05 23:59 | disposition home health service (06) | LOC: WOU 08:19 | PROVIDERS: ATTEND Podiatrist Foot & Ankle Surgery | DX: E11.621 Type 2 diabetes mellitus with foot ulcer (principal); L97.512 Non-pressure chronic ulcer of other part of right foot with fat layer exposed; L97.412 Non-pressure chronic ulcer of right heel and midfoot with fat layer exposed; E11.622 Type 2 diabetes mellitus with other skin ulcer; L97.312 Non-pressure chronic ulcer of right ankle with fat layer exposed; E11.42 Type 2 diabetes mellitus with diabetic polyneuropathy; E11.69 Type 2 diabetes mellitus with other specified complication; M86.671 Other chronic osteomyelitis, right ankle and foot; B35.1 Tinea unguium; B95.7 Other staphylococcus as the cause of diseases classified elsewhere; Z79.4 Long term (current) use of insulin; Z79.84 Long term (current) use of oral hypoglycemic drugs | CPT/HCPCS: 11042 ==

== ENCOUNTER 2021-04-08 08:30 | Outpatient (CLI) | payer MEDICARE, OTHER | END 2021-04-08 23:59 | disposition home health service (06) | LOC: WOU 08:30 | PROVIDERS: ATTEND Podiatrist Foot & Ankle Surgery | DX: E11.621 Type 2 diabetes mellitus with foot ulcer (principal); E11.622 Type 2 diabetes mellitus with other skin ulcer; L97.412 Non-pressure chronic ulcer of right heel and midfoot with fat layer exposed; L97.512 Non-pressure chronic ulcer of other part of right foot with fat layer exposed; L97.312 Non-pressure chronic ulcer of right ankle with fat layer exposed; E11.42 Type 2 diabetes mellitus with diabetic polyneuropathy; E11.69 Type 2 diabetes mellitus with other specified complication; M86.671 Other chronic osteomyelitis, right ankle and foot; Z79.4 Long term (current) use of insulin; Z79.84 Long term (current) use of oral hypoglycemic drugs; L84 Corns and callosities; B35.1 Tinea unguium | CPT/HCPCS: 11042 ==

== ENCOUNTER 2021-04-12 08:20 | Outpatient (CLI) | payer MEDICARE, OTHER | END 2021-04-12 23:59 | disposition home health service (06) | LOC: WOU 08:20 | PROVIDERS: ATTEND Podiatrist Foot & Ankle Surgery | DX: E11.621 Type 2 diabetes mellitus with foot ulcer (principal); E11.622 Type 2 diabetes mellitus with other skin ulcer; L97.312 Non-pressure chronic ulcer of right ankle with fat layer exposed; L97.412 Non-pressure chronic ulcer of right heel and midfoot with fat layer exposed; L97.512 Non-pressure chronic ulcer of other part of right foot with fat layer exposed; E11.42 Type 2 diabetes mellitus with diabetic polyneuropathy; E11.69 Type 2 diabetes mellitus with other specified complication; M86.671 Other chronic osteomyelitis, right ankle and foot; B35.1 Tinea unguium; B95.7 Other staphylococcus as the cause of diseases classified elsewhere; Z79.4 Long term (current) use of insulin; Z79.84 Long term (current) use of oral hypoglycemic drugs | CPT/HCPCS: 11042; A6197 ==

== ENCOUNTER → 2021-04-12 | Outpatient (CLI) | payer MEDICARE, OTHER ==
[2021-04-12 10:49] LABS: BASOPHILS % (AUTO) 0.5 % (0.0-2.0); EOSINOPHILS % (AUTO) 2.6 % (0.0-6.0); HEMATOCRIT 43 % (39-51); HEMOGLOBIN 14.5 g/dL (13.5-17.5); LYMPHOCYTES # (AUTO) 1.2 K/uL (0.8-4.8); LYMPHOCYTES % (AUTO) 24.8 % (20.0-44.0); MEAN CORPUSCULAR HGB CONC 34 g/dl (31.0-36.0); MEAN CORPUSCULAR VOLUME 84 fL (80-96); MONOCYTES # (AUTO) 0.3 K/uL (0.1-1.30); MONOCYTES % (AUTO) 5.6 % (2.0-12.0); NEUTROPHILS # (AUTO) 3.3 K/uL (1.8-8.9); NEUTROPHILS % (AUTO) 66.5 % (43.0-81.0); PLATELET COUNT (AUTO) 320 K/uL (150-450); RED BLOOD CELL COUNT(AUTO) 5.15 MIL/uL (4.5-6.0); WHITE BLOOD COUNT (AUTO) 4.9 K/uL (4.3-11.0)
[2021-04-12 11:12] LABS: ALBUMIN 3.8 g/dL (3.4-5.0); BILIRUBIN,TOTAL 0.4 mg/dL (0.2-1.0); C-REACTIVE PROTEIN 0.3 mg/dL (0.0-0.9); PHOSPHORUS 3.4 mg/dL (2.5-4.9); POTASSIUM 4.7 mmol/L (3.5-5.1); TOTAL PROTEIN, SERUM 8.8 g/dL (6.4-8.2)
== END | disposition home or self-care (01) ==
LOC: MSC 09:26
PROVIDERS: ATTEND Internal Medicine
DX: R05.9 Cough, unspecified (principal); E11.42 Type 2 diabetes mellitus with diabetic polyneuropathy; Z79.4 Long term (current) use of insulin; Z79.84 Long term (current) use of oral hypoglycemic drugs; M25.511 Pain in right shoulder; M54.50 Low back pain, unspecified; S91.301D Unspecified open wound, right foot, subsequent encounter
CPT/HCPCS: 36415; 80053; 80061; 83036; 83735; 84100; 85025; 85652; 86140; G0463

== ENCOUNTER 2021-04-15 08:30 | Outpatient (CLI) | payer MEDICARE, OTHER | END 2021-04-15 23:59 | disposition home health service (06) | LOC: WOU 08:30 | PROVIDERS: ATTEND Podiatrist Foot & Ankle Surgery | DX: E11.621 Type 2 diabetes mellitus with foot ulcer (principal); E11.622 Type 2 diabetes mellitus with other skin ulcer; L97.412 Non-pressure chronic ulcer of right heel and midfoot with fat layer exposed; L97.512 Non-pressure chronic ulcer of other part of right foot with fat layer exposed; L97.312 Non-pressure chronic ulcer of right ankle with fat layer exposed; E11.42 Type 2 diabetes mellitus with diabetic polyneuropathy; E11.69 Type 2 diabetes mellitus with other specified complication; M86.671 Other chronic osteomyelitis, right ankle and foot; Z79.4 Long term (current) use of insulin; Z79.84 Long term (current) use of oral hypoglycemic drugs; B35.1 Tinea unguium | CPT/HCPCS: 11042; A6197 ==

== ENCOUNTER 2021-05-03 09:20 | Outpatient (CLI) | payer MEDICARE, OTHER | END 2021-05-03 23:59 | disposition home health service (06) | LOC: WOU 09:20 | PROVIDERS: ATTEND Podiatrist Foot & Ankle Surgery | DX: E11.621 Type 2 diabetes mellitus with foot ulcer (principal); L97.412 Non-pressure chronic ulcer of right heel and midfoot with fat layer exposed; L97.512 Non-pressure chronic ulcer of other part of right foot with fat layer exposed; E11.622 Type 2 diabetes mellitus with other skin ulcer; L97.312 Non-pressure chronic ulcer of right ankle with fat layer exposed; E11.42 Type 2 diabetes mellitus with diabetic polyneuropathy; B35.1 Tinea unguium; Z79.4 Long term (current) use of insulin; Z79.84 Long term (current) use of oral hypoglycemic drugs | CPT/HCPCS: 11042 ==

== ENCOUNTER 2021-05-10 08:34 | Outpatient (CLI) | payer MEDICARE, OTHER ==
[2021-05-10 12:51] LABS: BASOPHILS % (AUTO) 0.4 % (0.0-2.0); EOSINOPHILS % (AUTO) 2.6 % (0.0-6.0); HEMATOCRIT 43 % (39-51); HEMOGLOBIN 14.7 g/dL (13.5-17.5); LYMPHOCYTES # (AUTO) 1.3 K/uL (0.8-4.8); LYMPHOCYTES % (AUTO) 21.8 % (20.0-44.0); MEAN CORPUSCULAR HGB CONC 34 g/dl (31.0-36.0); MEAN CORPUSCULAR VOLUME 84 fL (80-96); MONOCYTES # (AUTO) 0.3 K/uL (0.1-1.30); MONOCYTES % (AUTO) 4.7 % (2.0-12.0); NEUTROPHILS # (AUTO) 4.4 K/uL (1.8-8.9); NEUTROPHILS % (AUTO) 70.5 % (43.0-81.0); PLATELET COUNT (AUTO) 288 K/uL (150-450); RED BLOOD CELL COUNT(AUTO) 5.16 MIL/uL (4.5-6.0); WHITE BLOOD COUNT (AUTO) 6.2 K/uL (4.3-11.0)
[2021-05-10 13:23] LABS: ALBUMIN 3.5 g/dL (3.4-5.0); BILIRUBIN,TOTAL 0.3 mg/dL (0.2-1.0); CALCIUM, SERUM 8.6 mg/dL (8.5-10.1); CREATININE 0.9 mg/dL (0.6-1.3); POTASSIUM 4.5 mmol/L (3.5-5.1); TOTAL PROTEIN, SERUM 8.4 g/dL (6.4-8.2)
[2021-05-10 16:16] LABS: C-REACTIVE PROTEIN 0.2 mg/dL (0.0-0.9)
== END 2021-05-10 23:59 | disposition home or self-care (01) ==
LOC: WOU 08:34
PROVIDERS: ATTEND Podiatrist Foot & Ankle Surgery
DX: E11.621 Type 2 diabetes mellitus with foot ulcer (principal); L97.412 Non-pressure chronic ulcer of right heel and midfoot with fat layer exposed; E11.622 Type 2 diabetes mellitus with other skin ulcer; L97.312 Non-pressure chronic ulcer of right ankle with fat layer exposed; E11.42 Type 2 diabetes mellitus with diabetic polyneuropathy; E11.69 Type 2 diabetes mellitus with other specified complication; M86.671 Other chronic osteomyelitis, right ankle and foot; B95.7 Other staphylococcus as the cause of diseases classified elsewhere; B35.1 Tinea unguium; Z79.4 Long term (current) use of insulin; Z79.84 Long term (current) use of oral hypoglycemic drugs
CPT/HCPCS: 11042; 36415; 80053-TC; 85025-TC; 85652-TC; 86140-TC; 87070-TC; 87075-TC; 87186-TC

== ENCOUNTER 2021-05-17 08:39 | Outpatient (CLI) | payer MEDICARE, OTHER | END 2021-05-17 23:59 | disposition home health service (06) | LOC: WOU 08:39 | PROVIDERS: ATTEND Podiatrist Foot & Ankle Surgery | DX: E11.621 Type 2 diabetes mellitus with foot ulcer (principal); E11.622 Type 2 diabetes mellitus with other skin ulcer; L97.312 Non-pressure chronic ulcer of right ankle with fat layer exposed; L97.412 Non-pressure chronic ulcer of right heel and midfoot with fat layer exposed; E11.69 Type 2 diabetes mellitus with other specified complication; E11.42 Type 2 diabetes mellitus with diabetic polyneuropathy; M86.671 Other chronic osteomyelitis, right ankle and foot; B95.7 Other staphylococcus as the cause of diseases classified elsewhere; B35.1 Tinea unguium; Z79.4 Long term (current) use of insulin; Z79.84 Long term (current) use of oral hypoglycemic drugs | CPT/HCPCS: 11042 ==

== ENCOUNTER 2021-05-17 09:33 | Outpatient (CLI) | payer MEDICARE, OTHER ==
[2021-05-17 12:13] LABS: BASOPHILS % (AUTO) 0.5 % (0.0-2.0); EOSINOPHILS % (AUTO) 2.5 % (0.0-6.0); HEMATOCRIT 41 % (39-51); HEMOGLOBIN 13.8 g/dL (13.5-17.5); LYMPHOCYTES # (AUTO) 1.6 K/uL (0.8-4.8); LYMPHOCYTES % (AUTO) 23.8 % (20.0-44.0); MEAN CORPUSCULAR HGB CONC 33 g/dl (31.0-36.0); MEAN CORPUSCULAR VOLUME 84 fL (80-96); MONOCYTES # (AUTO) 0.5 K/uL (0.1-1.30); MONOCYTES % (AUTO) 6.6 % (2.0-12.0); NEUTROPHILS # (AUTO) 4.6 K/uL (1.8-8.9); NEUTROPHILS % (AUTO) 66.6 % (43.0-81.0); PLATELET COUNT (AUTO) 319 K/uL (150-450); RED BLOOD CELL COUNT(AUTO) 4.93 MIL/uL (4.5-6.0); WHITE BLOOD COUNT (AUTO) 6.9 K/uL (4.3-11.0)
[2021-05-17 12:38] LABS: C-REACTIVE PROTEIN 0.3 mg/dL (0.0-0.9)
[2021-05-17 12:39] LABS: FREE T4 (FREE THYROXINE) 0.77 ng/dL (0.76-1.46); THYROID STIMULATING HORMONE 1.911 uIU/mL (0.358-3.74)
[2021-05-17 13:05] LABS: ALBUMIN 3.4 g/dL (3.4-5.0); BILIRUBIN,TOTAL 0.3 mg/dL (0.2-1.0); CALCIUM, SERUM 8.8 mg/dL (8.5-10.1); MAGNESIUM 1.8 mg/dL (1.8-2.4); PHOSPHORUS 3.9 mg/dL (2.5-4.9); POTASSIUM 4.2 mmol/L (3.5-5.1); TOTAL PROTEIN, SERUM 7.9 g/dL (6.4-8.2)
== END 2021-05-17 23:59 | disposition home or self-care (01) ==
LOC: MSC 09:33
PROVIDERS: ATTEND Internal Medicine
DX: R05.9 Cough, unspecified (principal); E11.42 Type 2 diabetes mellitus with diabetic polyneuropathy; Z79.4 Long term (current) use of insulin; Z79.84 Long term (current) use of oral hypoglycemic drugs; M54.50 Low back pain, unspecified; Z79.1 Long term (current) use of non-steroidal anti-inflammatories (NSAID); M25.511 Pain in right shoulder; S91.301D Unspecified open wound, right foot, subsequent encounter; Z79.899 Other long term (current) drug therapy
CPT/HCPCS: 36415; 71045; 80053; 82306; 82607; 82746; 83036; 83735; 84100; 84439; 84443; 85025; 85652; 86140; G0463

== ENCOUNTER 2021-05-20 09:00 | Outpatient (CLI) | payer MEDICARE, OTHER | END 2021-05-20 23:59 | disposition home health service (06) | LOC: WOU 09:00 | PROVIDERS: ATTEND Podiatrist Foot & Ankle Surgery | DX: E11.621 Type 2 diabetes mellitus with foot ulcer (principal); E11.622 Type 2 diabetes mellitus with other skin ulcer; L97.312 Non-pressure chronic ulcer of right ankle with fat layer exposed; L97.412 Non-pressure chronic ulcer of right heel and midfoot with fat layer exposed; E11.42 Type 2 diabetes mellitus with diabetic polyneuropathy; E11.69 Type 2 diabetes mellitus with other specified complication; M86.671 Other chronic osteomyelitis, right ankle and foot; B95.7 Other staphylococcus as the cause of diseases classified elsewhere; B35.1 Tinea unguium; Z79.4 Long term (current) use of insulin; Z79.84 Long term (current) use of oral hypoglycemic drugs | CPT/HCPCS: 11042 ==

== ENCOUNTER 2021-05-24 08:30 | Outpatient (CLI) | payer MEDICARE, OTHER | END 2021-05-24 23:59 | disposition home health service (06) | LOC: WOU 08:30 | PROVIDERS: ATTEND Podiatrist Foot & Ankle Surgery | DX: E11.621 Type 2 diabetes mellitus with foot ulcer (principal); L97.412 Non-pressure chronic ulcer of right heel and midfoot with fat layer exposed; E11.622 Type 2 diabetes mellitus with other skin ulcer; L97.312 Non-pressure chronic ulcer of right ankle with fat layer exposed; E11.42 Type 2 diabetes mellitus with diabetic polyneuropathy; E11.69 Type 2 diabetes mellitus with other specified complication; M86.671 Other chronic osteomyelitis, right ankle and foot; B95.7 Other staphylococcus as the cause of diseases classified elsewhere; B35.1 Tinea unguium; Z79.4 Long term (current) use of insulin; Z79.84 Long term (current) use of oral hypoglycemic drugs | CPT/HCPCS: 11042; A6210 ==

== ENCOUNTER → 2021-05-24 | Outpatient (CLI) | payer MEDICARE, OTHER | END | disposition home or self-care (01) | LOC: MSC 14:00 | PROVIDERS: ATTEND Internal Medicine | DX: R05.9 Cough, unspecified (principal); E11.42 Type 2 diabetes mellitus with diabetic polyneuropathy; Z79.4 Long term (current) use of insulin; Z79.84 Long term (current) use of oral hypoglycemic drugs; M54.9 Dorsalgia, unspecified; M25.511 Pain in right shoulder; S91.301D Unspecified open wound, right foot, subsequent encounter; Z79.899 Other long term (current) drug therapy ==

== ENCOUNTER 2021-05-27 09:00 | Outpatient (CLI) | payer MEDICARE, OTHER | END 2021-05-27 23:59 | disposition home health service (06) | LOC: WOU 09:00 | PROVIDERS: ATTEND Podiatrist Foot & Ankle Surgery | DX: E11.621 Type 2 diabetes mellitus with foot ulcer (principal); L97.412 Non-pressure chronic ulcer of right heel and midfoot with fat layer exposed; E11.622 Type 2 diabetes mellitus with other skin ulcer; L97.312 Non-pressure chronic ulcer of right ankle with fat layer exposed; Z79.4 Long term (current) use of insulin; Z79.84 Long term (current) use of oral hypoglycemic drugs; E11.42 Type 2 diabetes mellitus with diabetic polyneuropathy; B35.1 Tinea unguium; B95.7 Other staphylococcus as the cause of diseases classified elsewhere; S90.424A Blister (nonthermal), right lesser toe(s), initial encounter; X58.XXXA Exposure to other specified factors, initial encounter; Y92.89 Other specified places as the place of occurrence of the external cause | CPT/HCPCS: 11042; A6210 ==

== ENCOUNTER 2021-05-27 12:45 | Outpatient (CLI) | payer MEDICARE, OTHER | END 2021-05-27 23:59 | disposition home or self-care (01) | LOC: MRI 12:45 | PROVIDERS: ATTEND Podiatrist Foot & Ankle Surgery | DX: S96.911D Strain of unspecified muscle and tendon at ankle and foot level, right foot, subsequent encounter (principal); L97.419 Non-pressure chronic ulcer of right heel and midfoot with unspecified severity; M86.8X7 Other osteomyelitis, ankle and foot; M79.89 Other specified soft tissue disorders; X58.XXXD Exposure to other specified factors, subsequent encounter | CPT/HCPCS: 73718-TC; 73721-TC ==

== ENCOUNTER 2021-05-31 09:45 | Outpatient (CLI) | payer MEDICARE, OTHER | END 2021-05-31 23:59 | disposition home or self-care (01) | LOC: WOU 09:45 | PROVIDERS: ATTEND Podiatrist Foot & Ankle Surgery | DX: E11.621 Type 2 diabetes mellitus with foot ulcer (principal); L97.412 Non-pressure chronic ulcer of right heel and midfoot with fat layer exposed; E11.622 Type 2 diabetes mellitus with other skin ulcer; L97.312 Non-pressure chronic ulcer of right ankle with fat layer exposed; E11.42 Type 2 diabetes mellitus with diabetic polyneuropathy; E11.69 Type 2 diabetes mellitus with other specified complication; M86.671 Other chronic osteomyelitis, right ankle and foot; B95.7 Other staphylococcus as the cause of diseases classified elsewhere; B35.1 Tinea unguium; S90.425A Blister (nonthermal), left lesser toe(s), initial encounter; X58.XXXA Exposure to other specified factors, initial encounter; Y92.89 Other specified places as the place of occurrence of the external cause; Z79.4 Long term (current) use of insulin; Z79.84 Long term (current) use of oral hypoglycemic drugs | CPT/HCPCS: 11042; A6210 ==

== ENCOUNTER → 2021-06-03 | Outpatient (CLI) | payer MEDICARE, OTHER | END | disposition home health service (06) | LOC: WOU 09:05 | PROVIDERS: ATTEND Podiatrist Foot & Ankle Surgery | DX: E11.621 Type 2 diabetes mellitus with foot ulcer (principal); L97.428 Non-pressure chronic ulcer of left heel and midfoot with other specified severity; L97.412 Non-pressure chronic ulcer of right heel and midfoot with fat layer exposed; L97.512 Non-pressure chronic ulcer of other part of right foot with fat layer exposed; E11.622 Type 2 diabetes mellitus with other skin ulcer; L97.312 Non-pressure chronic ulcer of right ankle with fat layer exposed; E11.42 Type 2 diabetes mellitus with diabetic polyneuropathy; E11.69 Type 2 diabetes mellitus with other specified complication; M86.671 Other chronic osteomyelitis, right ankle and foot; B95.7 Other staphylococcus as the cause of diseases classified elsewhere; Z79.4 Long term (current) use of insulin; Z79.84 Long term (current) use of oral hypoglycemic drugs; B35.1 Tinea unguium | CPT/HCPCS: 11042; A6210 ==

== ENCOUNTER 2021-06-07 09:00 | Outpatient (CLI) | payer MEDICARE, OTHER | END 2021-06-07 23:59 | disposition home health service (06) | LOC: WOU 09:00 | PROVIDERS: ATTEND Podiatrist Foot & Ankle Surgery | DX: E11.621 Type 2 diabetes mellitus with foot ulcer (principal); L97.428 Non-pressure chronic ulcer of left heel and midfoot with other specified severity; L97.412 Non-pressure chronic ulcer of right heel and midfoot with fat layer exposed; E11.622 Type 2 diabetes mellitus with other skin ulcer; L97.312 Non-pressure chronic ulcer of right ankle with fat layer exposed; E11.42 Type 2 diabetes mellitus with diabetic polyneuropathy; E11.69 Type 2 diabetes mellitus with other specified complication; M86.671 Other chronic osteomyelitis, right ankle and foot; B95.7 Other staphylococcus as the cause of diseases classified elsewhere; Z79.4 Long term (current) use of insulin; Z79.84 Long term (current) use of oral hypoglycemic drugs; S90.424D Blister (nonthermal), right lesser toe(s), subsequent encounter; X58.XXXD Exposure to other specified factors, subsequent encounter | CPT/HCPCS: 11042; A6210 ==

== ENCOUNTER 2021-06-10 08:30 | Outpatient (CLI) | payer MEDICARE, OTHER | END 2021-06-10 23:59 | disposition home health service (06) | LOC: WOU 08:30 | PROVIDERS: ATTEND Podiatrist Foot & Ankle Surgery | DX: E11.621 Type 2 diabetes mellitus with foot ulcer (principal); L97.428 Non-pressure chronic ulcer of left heel and midfoot with other specified severity; L97.412 Non-pressure chronic ulcer of right heel and midfoot with fat layer exposed; L97.512 Non-pressure chronic ulcer of other part of right foot with fat layer exposed; E11.42 Type 2 diabetes mellitus with diabetic polyneuropathy; E11.69 Type 2 diabetes mellitus with other specified complication; M86.671 Other chronic osteomyelitis, right ankle and foot; B95.7 Other staphylococcus as the cause of diseases classified elsewhere; B35.1 Tinea unguium; Z79.4 Long term (current) use of insulin; Z79.84 Long term (current) use of oral hypoglycemic drugs | CPT/HCPCS: 11042; A6210 ==

== ENCOUNTER 2021-06-10 10:13 | Outpatient (CLI) | payer MEDICARE, OTHER | END 2021-06-10 23:59 | disposition home or self-care (01) | LOC: CT 10:13 | PROVIDERS: ATTEND Internal Medicine | DX: J98.11 Atelectasis (principal); J90 Pleural effusion, not elsewhere classified; J47.9 Bronchiectasis, uncomplicated; K76.0 Fatty (change of) liver, not elsewhere classified; M51.34 Other intervertebral disc degeneration, thoracic region | CPT/HCPCS: 71250-TC ==

== ENCOUNTER 2021-06-14 08:30 | Outpatient (CLI) | payer MEDICARE, OTHER | END 2021-06-14 23:59 | disposition home health service (06) | LOC: WOU 08:30 | PROVIDERS: ATTEND Podiatrist Foot & Ankle Surgery | DX: E11.621 Type 2 diabetes mellitus with foot ulcer (principal); L97.512 Non-pressure chronic ulcer of other part of right foot with fat layer exposed; L97.412 Non-pressure chronic ulcer of right heel and midfoot with fat layer exposed; L97.516 Non-pressure chronic ulcer of other part of right foot with bone involvement without evidence of necrosis; E11.42 Type 2 diabetes mellitus with diabetic polyneuropathy; E11.69 Type 2 diabetes mellitus with other specified complication; M86.171 Other acute osteomyelitis, right ankle and foot; B95.7 Other staphylococcus as the cause of diseases classified elsewhere; M86.671 Other chronic osteomyelitis, right ankle and foot; B35.1 Tinea unguium; R60.0 Localized edema; Z79.4 Long term (current) use of insulin; Z79.84 Long term (current) use of oral hypoglycemic drugs | CPT/HCPCS: 11042; 11044; 87070; 87075; 87077; 87186; A6210 ==

== ENCOUNTER 2021-06-17 08:50 | Outpatient (CLI) | payer MEDICARE, OTHER | END 2021-06-17 23:59 | disposition home or self-care (01) | LOC: WOU 08:50 | PROVIDERS: ATTEND Podiatrist Foot & Ankle Surgery | DX: E11.621 Type 2 diabetes mellitus with foot ulcer (principal); L97.412 Non-pressure chronic ulcer of right heel and midfoot with fat layer exposed; L97.516 Non-pressure chronic ulcer of other part of right foot with bone involvement without evidence of necrosis; E11.69 Type 2 diabetes mellitus with other specified complication; M86.671 Other chronic osteomyelitis, right ankle and foot; M86.171 Other acute osteomyelitis, right ankle and foot; B95.7 Other staphylococcus as the cause of diseases classified elsewhere; E11.42 Type 2 diabetes mellitus with diabetic polyneuropathy; B35.1 Tinea unguium; Z79.4 Long term (current) use of insulin; Z79.84 Long term (current) use of oral hypoglycemic drugs | CPT/HCPCS: 11042; 11044; A6210 ==

== ENCOUNTER 2021-06-21 08:30 | Outpatient (CLI) | payer MEDICARE, OTHER ==
[2021-06-21] MEDS ORDERED: SILVER SULFADIAZINE CREAM 25 GM TUBE ONE (08:58)
== END 2021-06-21 23:59 | disposition home or self-care (01) ==
LOC: WOU 08:30
PROVIDERS: ATTEND Podiatrist Foot & Ankle Surgery
DX: E11.621 Type 2 diabetes mellitus with foot ulcer (principal); L97.412 Non-pressure chronic ulcer of right heel and midfoot with fat layer exposed; L97.516 Non-pressure chronic ulcer of other part of right foot with bone involvement without evidence of necrosis; E11.42 Type 2 diabetes mellitus with diabetic polyneuropathy; E11.69 Type 2 diabetes mellitus with other specified complication; M86.671 Other chronic osteomyelitis, right ankle and foot; B95.7 Other staphylococcus as the cause of diseases classified elsewhere; B35.1 Tinea unguium; Z79.4 Long term (current) use of insulin; Z79.84 Long term (current) use of oral hypoglycemic drugs
CPT/HCPCS: 11042; 11043

== ENCOUNTER 2021-06-21 11:00 | Outpatient (CLI) | payer MEDICARE, OTHER | END 2021-06-21 23:59 | disposition home or self-care (01) | LOC: MSC 11:00 | PROVIDERS: ATTEND Internal Medicine | DX: R05.9 Cough, unspecified (principal); E11.42 Type 2 diabetes mellitus with diabetic polyneuropathy; Z79.4 Long term (current) use of insulin; Z79.84 Long term (current) use of oral hypoglycemic drugs; M25.511 Pain in right shoulder; M54.50 Low back pain, unspecified; S91.301D Unspecified open wound, right foot, subsequent encounter ==

== ENCOUNTER 2021-06-29 12:42 | Outpatient (CLI) | payer MEDICARE, OTHER ==
[2021-06-29] MEDS ORDERED: SILVER SULFADIAZINE CREAM 25 GM TUBE ONE (13:38)
[2021-06-29 14:31] LABS: BASOPHILS % (AUTO) 0.5 % (0.0-2.0); EOSINOPHILS % (AUTO) 1.5 % (0.0-6.0); HEMATOCRIT 44 % (39-51); HEMOGLOBIN 14.5 g/dL (13.5-17.5); LYMPHOCYTES # (AUTO) 1.5 K/uL (0.8-4.8); LYMPHOCYTES % (AUTO) 15.8 % (20.0-44.0); MEAN CORPUSCULAR HGB CONC 33 g/dl (31.0-36.0); MEAN CORPUSCULAR VOLUME 82 fL (80-96); MONOCYTES # (AUTO) 0.5 K/uL (0.1-1.30); MONOCYTES % (AUTO) 4.8 % (2.0-12.0); NEUTROPHILS # (AUTO) 7.6 K/uL (1.8-8.9); NEUTROPHILS % (AUTO) 77.4 % (43.0-81.0); PLATELET COUNT (AUTO) 378 K/uL (150-450); RED BLOOD CELL COUNT(AUTO) 5.36 MIL/uL (4.5-6.0); WHITE BLOOD COUNT (AUTO) 9.7 K/uL (4.3-11.0)
[2021-06-29 14:46] LABS: ALBUMIN 3.5 g/dL (3.4-5.0)
== END 2021-06-29 23:59 | disposition home or self-care (01) ==
LOC: WOU 12:42
PROVIDERS: ATTEND Podiatrist Foot & Ankle Surgery
DX: E11.621 Type 2 diabetes mellitus with foot ulcer (principal); L97.412 Non-pressure chronic ulcer of right heel and midfoot with fat layer exposed; L97.516 Non-pressure chronic ulcer of other part of right foot with bone involvement without evidence of necrosis; E11.69 Type 2 diabetes mellitus with other specified complication; E11.42 Type 2 diabetes mellitus with diabetic polyneuropathy; M86.671 Other chronic osteomyelitis, right ankle and foot; B95.7 Other staphylococcus as the cause of diseases classified elsewhere; Z79.4 Long term (current) use of insulin; Z79.84 Long term (current) use of oral hypoglycemic drugs; B35.1 Tinea unguium
CPT/HCPCS: 11043; 36415; 82040-TC; 85025-TC; 85652-TC; 86140-TC; 87070-TC; 87075-TC; 87186-TC

== ENCOUNTER 2021-07-01 08:30 | Outpatient (CLI) | payer MEDICARE, OTHER ==
[2021-07-01] MEDS ORDERED: SILVER SULFADIAZINE CREAM 25 GM TUBE ONE (09:24)
== END 2021-07-01 23:59 | disposition home or self-care (01) ==
LOC: WOU 08:30
PROVIDERS: ATTEND Podiatrist Foot & Ankle Surgery
DX: E11.621 Type 2 diabetes mellitus with foot ulcer (principal); L97.412 Non-pressure chronic ulcer of right heel and midfoot with fat layer exposed; L97.516 Non-pressure chronic ulcer of other part of right foot with bone involvement without evidence of necrosis; E11.42 Type 2 diabetes mellitus with diabetic polyneuropathy; E11.69 Type 2 diabetes mellitus with other specified complication; M86.671 Other chronic osteomyelitis, right ankle and foot; B95.7 Other staphylococcus as the cause of diseases classified elsewhere; B35.1 Tinea unguium; Z79.4 Long term (current) use of insulin; Z79.84 Long term (current) use of oral hypoglycemic drugs
CPT/HCPCS: 11042; 11043; 82962-TC

== ENCOUNTER 2021-07-05 09:00 | Outpatient (CLI) | payer MEDICARE, OTHER ==
[2021-07-05] MEDS ORDERED: SILVER SULFADIAZINE CREAM 25 GM TUBE ONE (09:33)
== END 2021-07-05 23:59 | disposition home or self-care (01) ==
LOC: WOU 09:00
PROVIDERS: ATTEND Podiatrist Foot & Ankle Surgery
DX: E11.621 Type 2 diabetes mellitus with foot ulcer (principal); L97.412 Non-pressure chronic ulcer of right heel and midfoot with fat layer exposed; L97.516 Non-pressure chronic ulcer of other part of right foot with bone involvement without evidence of necrosis; E11.42 Type 2 diabetes mellitus with diabetic polyneuropathy; E11.69 Type 2 diabetes mellitus with other specified complication; M86.671 Other chronic osteomyelitis, right ankle and foot; B35.1 Tinea unguium; Z79.4 Long term (current) use of insulin; Z79.84 Long term (current) use of oral hypoglycemic drugs
CPT/HCPCS: 11043

== ENCOUNTER → 2021-07-08 | Outpatient (CLI) | payer MEDICARE, OTHER ==
[~2021-07-08] MED LIST changes: +SILVER SULFADIAZINE CREAM 25 GM TUBE ONE
== END | disposition home or self-care (01) ==
LOC: WOU 08:55
PROVIDERS: ATTEND Podiatrist Foot & Ankle Surgery
DX: E11.621 Type 2 diabetes mellitus with foot ulcer (principal); L97.412 Non-pressure chronic ulcer of right heel and midfoot with fat layer exposed; L97.516 Non-pressure chronic ulcer of other part of right foot with bone involvement without evidence of necrosis; E11.42 Type 2 diabetes mellitus with diabetic polyneuropathy; E11.69 Type 2 diabetes mellitus with other specified complication; M86.671 Other chronic osteomyelitis, right ankle and foot; B95.7 Other staphylococcus as the cause of diseases classified elsewhere; B35.1 Tinea unguium; Z79.4 Long term (current) use of insulin; Z79.84 Long term (current) use of oral hypoglycemic drugs
CPT/HCPCS: 11043

== ENCOUNTER 2021-07-12 08:30 | Outpatient (CLI) | payer MEDICARE, OTHER ==
[~2021-07-12 08:30] MED LIST changes: -SILVER SULFADIAZINE CREAM 25 GM TUBE ONE
[2021-07-12] MEDS ORDERED: SILVER SULFADIAZINE CREAM 25 GM TUBE ONE (09:17)
== END 2021-07-12 23:59 | disposition home or self-care (01) ==
LOC: WOU 08:30
PROVIDERS: ATTEND Podiatrist Foot & Ankle Surgery
DX: E11.621 Type 2 diabetes mellitus with foot ulcer (principal); L97.413 Non-pressure chronic ulcer of right heel and midfoot with necrosis of muscle; L97.516 Non-pressure chronic ulcer of other part of right foot with bone involvement without evidence of necrosis; E11.42 Type 2 diabetes mellitus with diabetic polyneuropathy; E11.69 Type 2 diabetes mellitus with other specified complication; M89.671 Osteopathy after poliomyelitis, right ankle and foot; B35.1 Tinea unguium; B95.7 Other staphylococcus as the cause of diseases classified elsewhere; R60.0 Localized edema; Z79.4 Long term (current) use of insulin; Z79.84 Long term (current) use of oral hypoglycemic drugs
CPT/HCPCS: 11043

== ENCOUNTER → 2021-07-15 | Outpatient (CLI) | payer MEDICARE, OTHER ==
[~2021-07-15] MED LIST changes: +SILVER SULFADIAZINE CREAM 25 GM TUBE ONE
== END | disposition home or self-care (01) ==
LOC: WOU 09:00
PROVIDERS: ATTEND Podiatrist Foot & Ankle Surgery
DX: E11.621 Type 2 diabetes mellitus with foot ulcer (principal); L97.413 Non-pressure chronic ulcer of right heel and midfoot with necrosis of muscle; L97.516 Non-pressure chronic ulcer of other part of right foot with bone involvement without evidence of necrosis; E11.42 Type 2 diabetes mellitus with diabetic polyneuropathy; E11.69 Type 2 diabetes mellitus with other specified complication; M86.671 Other chronic osteomyelitis, right ankle and foot; B95.7 Other staphylococcus as the cause of diseases classified elsewhere; B35.1 Tinea unguium; Z79.4 Long term (current) use of insulin; Z79.84 Long term (current) use of oral hypoglycemic drugs
CPT/HCPCS: 11043

== ENCOUNTER 2021-07-19 09:00 | Outpatient (CLI) | payer MEDICARE, OTHER ==
[~2021-07-19 09:00] MED LIST changes: -SILVER SULFADIAZINE CREAM 25 GM TUBE ONE
[2021-07-19] MEDS ORDERED: SILVER SULFADIAZINE CREAM 25 GM TUBE ONE (09:27)
== END 2021-07-19 23:59 | disposition home or self-care (01) ==
LOC: WOU 09:00
PROVIDERS: ATTEND Podiatrist Foot & Ankle Surgery
DX: E11.621 Type 2 diabetes mellitus with foot ulcer (principal); L97.413 Non-pressure chronic ulcer of right heel and midfoot with necrosis of muscle; L97.516 Non-pressure chronic ulcer of other part of right foot with bone involvement without evidence of necrosis; E11.42 Type 2 diabetes mellitus with diabetic polyneuropathy; E11.69 Type 2 diabetes mellitus with other specified complication; M86.671 Other chronic osteomyelitis, right ankle and foot; B95.7 Other staphylococcus as the cause of diseases classified elsewhere; B35.1 Tinea unguium; Z79.84 Long term (current) use of oral hypoglycemic drugs; Z79.4 Long term (current) use of insulin
CPT/HCPCS: 11043; 11044

== ENCOUNTER 2021-07-22 09:00 | Outpatient (CLI) | payer MEDICARE, OTHER | END 2021-07-22 23:59 | disposition home or self-care (01) | LOC: WOU 09:00 | PROVIDERS: ATTEND Podiatrist Foot & Ankle Surgery | DX: E11.621 Type 2 diabetes mellitus with foot ulcer (principal); L97.413 Non-pressure chronic ulcer of right heel and midfoot with necrosis of muscle; L97.516 Non-pressure chronic ulcer of other part of right foot with bone involvement without evidence of necrosis; E11.42 Type 2 diabetes mellitus with diabetic polyneuropathy; E11.69 Type 2 diabetes mellitus with other specified complication; M86.671 Other chronic osteomyelitis, right ankle and foot; B95.7 Other staphylococcus as the cause of diseases classified elsewhere; B35.1 Tinea unguium; Z79.4 Long term (current) use of insulin; Z79.84 Long term (current) use of oral hypoglycemic drugs | CPT/HCPCS: 11043 ==

== ENCOUNTER 2021-07-26 09:30 | Outpatient (CLI) | payer MEDICARE, OTHER ==
[2021-07-26] MEDS ORDERED: SILVER SULFADIAZINE CREAM 25 GM TUBE ONE (10:01)
[2021-07-26 10:49] LABS: BASOPHILS % (AUTO) 0.7 % (0.0-2.0); EOSINOPHILS % (AUTO) 2.7 % (0.0-6.0); HEMATOCRIT 43 % (39-51); HEMOGLOBIN 14.2 g/dL (13.5-17.5); LYMPHOCYTES # (AUTO) 1.4 K/uL (0.8-4.8); LYMPHOCYTES % (AUTO) 24.8 % (20.0-44.0); MEAN CORPUSCULAR HGB CONC 34 g/dl (31.0-36.0); MEAN CORPUSCULAR VOLUME 81 fL (80-96); MONOCYTES # (AUTO) 0.3 K/uL (0.1-1.30); MONOCYTES % (AUTO) 6.1 % (2.0-12.0); NEUTROPHILS # (AUTO) 3.7 K/uL (1.8-8.9); NEUTROPHILS % (AUTO) 65.7 % (43.0-81.0); PLATELET COUNT (AUTO) 272 K/uL (150-450); RED BLOOD CELL COUNT(AUTO) 5.25 MIL/uL (4.5-6.0); WHITE BLOOD COUNT (AUTO) 5.6 K/uL (4.3-11.0)
[2021-07-26 12:19] LABS: CALCIUM, SERUM 9.1 mg/dL (8.5-10.1); POTASSIUM 4.6 mmol/L (3.5-5.1)
--- NOTE | 2021-07-26 14:00 | NUR ---
RT Outpatient EKG performed, results given to wound care dept
== END 2021-07-26 23:59 | disposition home or self-care (01) ==
LOC: WOU 09:30
PROVIDERS: ATTEND Podiatrist Foot & Ankle Surgery
DX: Z01.818 Encounter for other preprocedural examination (principal); E11.21 Type 2 diabetes mellitus with diabetic nephropathy; L97.412 Non-pressure chronic ulcer of right heel and midfoot with fat layer exposed; L97.516 Non-pressure chronic ulcer of other part of right foot with bone involvement without evidence of necrosis; E11.42 Type 2 diabetes mellitus with diabetic polyneuropathy; E11.69 Type 2 diabetes mellitus with other specified complication; M86.671 Other chronic osteomyelitis, right ankle and foot; B95.7 Other staphylococcus as the cause of diseases classified elsewhere; B35.1 Tinea unguium; Z79.4 Long term (current) use of insulin; Z79.84 Long term (current) use of oral hypoglycemic drugs
CPT/HCPCS: 11042; 11043; 36415; 80048-TC; 85025-TC; 85730-TC

== ENCOUNTER 2021-07-26 11:01 | Outpatient (CLI) | payer MEDICARE, OTHER | END 2021-07-26 23:59 | disposition home or self-care (01) | LOC: LAB 11:01 | PROVIDERS: ATTEND Podiatrist Foot & Ankle Surgery | DX: Z01.812 Encounter for preprocedural laboratory examination (principal); Z20.822 Contact with and (suspected) exposure to COVID-19 | CPT/HCPCS: C9803; U0003 ==

== ENCOUNTER → 2021-07-28 | Outpatient (CLI) | payer MEDICARE, OTHER | END | disposition home or self-care (01) | LOC: MSC 10:11 | PROVIDERS: ATTEND Internal Medicine | DX: Z01.818 Encounter for other preprocedural examination (principal); S91.301D Unspecified open wound, right foot, subsequent encounter; E11.621 Type 2 diabetes mellitus with foot ulcer; E11.69 Type 2 diabetes mellitus with other specified complication; E11.319 Type 2 diabetes mellitus with unspecified diabetic retinopathy without macular edema; E11.40 Type 2 diabetes mellitus with diabetic neuropathy, unspecified; L97.509 Non-pressure chronic ulcer of other part of unspecified foot with unspecified severity; M86.671 Other chronic osteomyelitis, right ankle and foot; Z79.4 Long term (current) use of insulin; Z79.84 Long term (current) use of oral hypoglycemic drugs; M25.511 Pain in right shoulder; Z79.1 Long term (current) use of non-steroidal anti-inflammatories (NSAID); M54.50 Low back pain, unspecified; Z86.16 Personal history of COVID-19 ==

== ENCOUNTER 2021-07-29 09:36 | Outpatient (CLI) | payer MEDICARE, OTHER ==
[2021-07-29] MEDS ORDERED: SILVER SULFADIAZINE CREAM 25 GM TUBE ONE (10:53)
== END 2021-07-29 23:59 | disposition home or self-care (01) ==
LOC: WOU 09:36
PROVIDERS: ATTEND Podiatrist Foot & Ankle Surgery
DX: E11.621 Type 2 diabetes mellitus with foot ulcer (principal); L97.412 Non-pressure chronic ulcer of right heel and midfoot with fat layer exposed; L97.516 Non-pressure chronic ulcer of other part of right foot with bone involvement without evidence of necrosis; E11.42 Type 2 diabetes mellitus with diabetic polyneuropathy; E11.69 Type 2 diabetes mellitus with other specified complication; M86.671 Other chronic osteomyelitis, right ankle and foot; L03.031 Cellulitis of right toe; B95.7 Other staphylococcus as the cause of diseases classified elsewhere; B35.1 Tinea unguium; Z79.4 Long term (current) use of insulin; Z79.84 Long term (current) use of oral hypoglycemic drugs
CPT/HCPCS: 11042; 11043

== ENCOUNTER 2021-08-02 06:02 | Day surgery (SDC) | payer MEDICARE, OTHER ==
[~2021-08-02 06:02] MED LIST changes: +ANESTHESIA TRAY IN PYXIS 1 EA TRAY MC ONE
[2021-08-02] MEDS ORDERED: BUPIVACAINE 0.5 % PF 150 MG/30 ML VIAL ONE (06:39)
[2021-08-02] MEDS ORDERED: ANESTHESIA TRAY IN PYXIS 1 EA TRAY MC ONE (06:39)
[2021-08-02] MEDS ORDERED: LIDOCAINE 1% INJ 50 ML MDV IJ ONE (06:39)
[2021-08-02] MEDS ORDERED: MIDAZOLAM HCL 2 MG/2ML VIAL ONE (06:54)
[2021-08-02] MEDS ORDERED: FENTANYL PF 250MCG/5ML AMPUL ONE (06:54)
[2021-08-02] MEDS ORDERED: CLINDAMYCIN 900 MG/6 ML VIAL ONE (06:55)
[2021-08-02] MEDS ORDERED: FAMOTIDINE/PF INJ 20 MG/2 ML VIAL IV ONE (06:55)
--- NOTE | 2021-08-02 07:25 | NUR ---
RN NOTES PATIENT TAKEN TO SURGERY VIA GURNEY, ACCOMPANIED BY 2 OR NURSES. PER THERMODYNAMICS PROFESSOR RN, PATIENT STATED THAT SURGERY IS TO BE DONE ON RIGHT FOOT/RLE INSTEAD OF THE LEFT, AND THAT OR NURSE BRITNEY IS AWARE AND WILL INFORM OR STAFF/SURGEON WHEN THEY GO TO OR.
--- NOTE | 2021-08-02 09:10 | NUR ---
RN NOTES PATIENT RETURNED FROM SURGERY VIA GURNEY, ACCOMPANIED BY [place], OR NURSE; BEDSIDE ENDORSEMENT OF ORDERS DONE.
--- NOTE | 2021-08-02 09:18 | NUR ---
RN NOTES SPOKE W/ XIOMY FROM REHAB AND INFORMED ABOUT WB-STATUS OF PATIENT; PER XIOMY, WILL SEE PATIENT FOR PT/OR EVAL. PATIENT STATES THAT HE DOES NOT WANT TO USE CRUTCHES AND WANTS TO REMOVE THE DRESSING. EXPLAINED TO PATIENT RISK OF BLEEDING IF DRESSING IS REMOVED AT THIS TIME AND VERBALIZED UNDERSTANDING. LATE BREAKFAST TRAY ORDERED FROM DIETARY.
--- NOTE | 2021-08-02 10:51 | NUR ---
RN NOTES PROPER-FITTING BOOTS FOR RIGHT FOOT OBTAINED FROM CENTRAL SUPPLY, ABLE TO PLACE ON PATIENT'S RIGHT FOOT. NO COMPLAINT OF PAIN NOTED. PATIENT S/P WOUND DEBRIDEMENT W/ DR. CALDERÓN TODAY W/ ORDER FOR DISCHARGE TO HOME ONCE MEDICALLY STABLE. DRESSING ON RIGHT FOOT C/D/I, NO BLEEDING NOTED. INFORMED PATIENT TO KEEP DRESSING AT THIS TIME TO PREVENT BLEEDING; PROVIDED W/ DRESSING CHANGE SUPPLIES. DISCHARGE INSTRUCTION AND EDUCATION PROVIDED TO PATIENT; DISCHARGE FORM AND BELONGINGS LIST FORM SIGNED BY PATIENT AND ALL BELONGINGS ACCOUNTED FOR. NAME ARMBAND AND IV LINE REMOVED, NO BLEEDING NOTED. NO OTHER SKIN ISSUE NOTED. PATIENT ABLE TO EAT PROVIDED SANDWICH W/ NO COMPLAINT OF NAUSEA/VOMITING. PATIENT IS AMBULATORY W/ 75%-WEIGHT-BEARING STATUS ON RLE, PATIENT AWARE AND SEEN BY PHYSICAL THERAPIST. ACCOMPANIED BY GABY RADER, TO LOBBY VIA WHEELCHAIR AND PICKED UP BY FATHER VIA PRIVATE CAR. CHARGE NURSE AND MD AWARE OF DISCHARGE.
== END 2021-08-02 10:50 | disposition home or self-care (01) ==
LOC: DS 06:02 → MED 06:04 → DS 10:50
PROVIDERS: ATTEND Podiatrist Foot & Ankle Surgery
DX: E11.621 Type 2 diabetes mellitus with foot ulcer (principal); I10 Essential (primary) hypertension; L97.518 Non-pressure chronic ulcer of other part of right foot with other specified severity; Z98.890 Other specified postprocedural states; Z79.899 Other long term (current) drug therapy
CPT/HCPCS: 15004; 15275; 28124; 82962; 87070 ×2; 87075 ×2; 87077 ×2; 87081; 87186 ×3; 88305; 88311; J2250; J2405; J2704; J2765; J3010; J3490 ×4; J7030; Q4186; G0378

== ENCOUNTER 2021-08-03 15:20 | Outpatient (CLI) | payer MEDICARE, OTHER ==
[~2021-08-03 15:20] MED LIST changes: -ANESTHESIA TRAY IN PYXIS 1 EA TRAY MC ONE
== END 2021-08-03 23:59 | disposition home or self-care (01) ==
LOC: WOU 15:20
PROVIDERS: ATTEND Podiatrist Foot & Ankle Surgery
DX: E11.621 Type 2 diabetes mellitus with foot ulcer (principal); L97.412 Non-pressure chronic ulcer of right heel and midfoot with fat layer exposed; L97.518 Non-pressure chronic ulcer of other part of right foot with other specified severity; S90.111A Contusion of right great toe without damage to nail, initial encounter; X58.XXXA Exposure to other specified factors, initial encounter; Y92.89 Other specified places as the place of occurrence of the external cause; E11.42 Type 2 diabetes mellitus with diabetic polyneuropathy; E11.69 Type 2 diabetes mellitus with other specified complication; M86.671 Other chronic osteomyelitis, right ankle and foot; B35.1 Tinea unguium; Z79.4 Long term (current) use of insulin; Z79.84 Long term (current) use of oral hypoglycemic drugs

== ENCOUNTER → 2021-08-05 | Outpatient (CLI) | payer MEDICARE, OTHER | END | disposition home or self-care (01) | LOC: WOU 09:00 | PROVIDERS: ATTEND Podiatrist Foot & Ankle Surgery | DX: E11.621 Type 2 diabetes mellitus with foot ulcer (principal); L97.412 Non-pressure chronic ulcer of right heel and midfoot with fat layer exposed; L97.518 Non-pressure chronic ulcer of other part of right foot with other specified severity; L97.512 Non-pressure chronic ulcer of other part of right foot with fat layer exposed; E11.42 Type 2 diabetes mellitus with diabetic polyneuropathy; E11.69 Type 2 diabetes mellitus with other specified complication; M86.671 Other chronic osteomyelitis, right ankle and foot; B97 Viral agents as the cause of diseases classified elsewhere; Z79.4 Long term (current) use of insulin; Z79.84 Long term (current) use of oral hypoglycemic drugs; B35.1 Tinea unguium | CPT/HCPCS: G0463 ==

== ENCOUNTER → 2021-08-12 | Outpatient (CLI) | payer MEDICARE, OTHER | END | disposition home or self-care (01) | LOC: WOU 08:50 | PROVIDERS: ATTEND Podiatrist Foot & Ankle Surgery | DX: E11.621 Type 2 diabetes mellitus with foot ulcer (principal); L97.412 Non-pressure chronic ulcer of right heel and midfoot with fat layer exposed; L97.512 Non-pressure chronic ulcer of other part of right foot with fat layer exposed; E11.42 Type 2 diabetes mellitus with diabetic polyneuropathy; E11.69 Type 2 diabetes mellitus with other specified complication; M86.671 Other chronic osteomyelitis, right ankle and foot; B96.20 Unspecified Escherichia coli [E. coli] as the cause of diseases classified elsewhere; Z79.4 Long term (current) use of insulin; Z79.84 Long term (current) use of oral hypoglycemic drugs; S80.812A Abrasion, left lower leg, initial encounter; S80.811A Abrasion, right lower leg, initial encounter; Y93.39 Activity, other involving climbing, rappelling and jumping off; Y92.096 Garden or yard of other non-institutional residence as the place of occurrence of the external cause | CPT/HCPCS: 11043 ==

== ENCOUNTER 2021-08-16 10:00 | Outpatient (CLI) | payer MEDICARE, OTHER | END 2021-08-16 23:59 | disposition home or self-care (01) | LOC: WOU 10:00 | PROVIDERS: ATTEND Podiatrist Foot & Ankle Surgery | DX: E11.621 Type 2 diabetes mellitus with foot ulcer (principal); L97.413 Non-pressure chronic ulcer of right heel and midfoot with necrosis of muscle; L97.512 Non-pressure chronic ulcer of other part of right foot with fat layer exposed; E11.42 Type 2 diabetes mellitus with diabetic polyneuropathy; E11.69 Type 2 diabetes mellitus with other specified complication; M86.671 Other chronic osteomyelitis, right ankle and foot; B96.20 Unspecified Escherichia coli [E. coli] as the cause of diseases classified elsewhere; Z79.4 Long term (current) use of insulin; Z79.84 Long term (current) use of oral hypoglycemic drugs; B35.1 Tinea unguium | CPT/HCPCS: 11042; 11043 ==

== ENCOUNTER 2021-08-23 09:00 | Outpatient (CLI) | payer MEDICARE, OTHER ==
[2021-08-23] MEDS ORDERED: SILVER SULFADIAZINE CREAM 25 GM TUBE ONE (09:58)
[2021-08-23 11:05] LABS: BASOPHILS % (AUTO) 0.4 % (0.0-2.0); EOSINOPHILS % (AUTO) 1.1 % (0.0-6.0); HEMATOCRIT 42 % (39-51); HEMOGLOBIN 14.5 g/dL (13.5-17.5); LYMPHOCYTES # (AUTO) 1.7 K/uL (0.8-4.8); LYMPHOCYTES % (AUTO) 22.3 % (20.0-44.0); MEAN CORPUSCULAR HGB CONC 34 g/dl (31.0-36.0); MEAN CORPUSCULAR VOLUME 81 fL (80-96); MONOCYTES # (AUTO) 0.5 K/uL (0.1-1.30); MONOCYTES % (AUTO) 6.6 % (2.0-12.0); NEUTROPHILS # (AUTO) 5.4 K/uL (1.8-8.9); NEUTROPHILS % (AUTO) 69.6 % (43.0-81.0); PLATELET COUNT (AUTO) 346 K/uL (150-450); RED BLOOD CELL COUNT(AUTO) 5.21 MIL/uL (4.5-6.0); WHITE BLOOD COUNT (AUTO) 7.8 K/uL (4.3-11.0)
[2021-08-23 11:18] LABS: ALBUMIN 3.4 g/dL (3.4-5.0)
[2021-08-23 11:59] LABS: C-REACTIVE PROTEIN 11.9 mg/dL (0.0-0.9)
== END 2021-08-23 23:59 | disposition home or self-care (01) ==
LOC: WOU 09:00
PROVIDERS: ATTEND Podiatrist Foot & Ankle Surgery
DX: R60.0 Localized edema (principal); E11.621 Type 2 diabetes mellitus with foot ulcer; L97.413 Non-pressure chronic ulcer of right heel and midfoot with necrosis of muscle; L97.512 Non-pressure chronic ulcer of other part of right foot with fat layer exposed; E11.69 Type 2 diabetes mellitus with other specified complication; E11.42 Type 2 diabetes mellitus with diabetic polyneuropathy; M86.671 Other chronic osteomyelitis, right ankle and foot; B96.20 Unspecified Escherichia coli [E. coli] as the cause of diseases classified elsewhere; Z79.4 Long term (current) use of insulin; Z79.84 Long term (current) use of oral hypoglycemic drugs; B35.1 Tinea unguium
CPT/HCPCS: 11042; 11043; 36415; 82040-TC; 85025-TC; 85652-TC; 86140-TC

== ENCOUNTER 2021-08-26 09:00 | Outpatient (CLI) | payer MEDICARE, OTHER ==
[2021-08-26] MEDS ORDERED: SILVER SULFADIAZINE CREAM 25 GM TUBE ONE (09:38)
== END 2021-08-26 23:59 | disposition home or self-care (01) ==
LOC: WOU 09:00
PROVIDERS: ATTEND Podiatrist Foot & Ankle Surgery
DX: E11.621 Type 2 diabetes mellitus with foot ulcer (principal); L97.413 Non-pressure chronic ulcer of right heel and midfoot with necrosis of muscle; L97.512 Non-pressure chronic ulcer of other part of right foot with fat layer exposed; E11.42 Type 2 diabetes mellitus with diabetic polyneuropathy; E11.69 Type 2 diabetes mellitus with other specified complication; M86.671 Other chronic osteomyelitis, right ankle and foot; B96.20 Unspecified Escherichia coli [E. coli] as the cause of diseases classified elsewhere; Z79.4 Long term (current) use of insulin; Z79.84 Long term (current) use of oral hypoglycemic drugs
CPT/HCPCS: 11042; 11043; 73610-TC; 87070-TC; 87075-TC; 87186-TC

== ENCOUNTER 2021-08-30 09:20 | Outpatient (CLI) | payer MEDICARE, OTHER ==
[2021-08-30] MEDS ORDERED: SILVER SULFADIAZINE CREAM 25 GM TUBE ONE (09:29)
== END 2021-08-30 23:59 | disposition home or self-care (01) ==
LOC: WOU 09:20
PROVIDERS: ATTEND Podiatrist Foot & Ankle Surgery
DX: E11.621 Type 2 diabetes mellitus with foot ulcer (principal); L97.413 Non-pressure chronic ulcer of right heel and midfoot with necrosis of muscle; L97.512 Non-pressure chronic ulcer of other part of right foot with fat layer exposed; E11.69 Type 2 diabetes mellitus with other specified complication; E11.42 Type 2 diabetes mellitus with diabetic polyneuropathy; M86.671 Other chronic osteomyelitis, right ankle and foot; B96.20 Unspecified Escherichia coli [E. coli] as the cause of diseases classified elsewhere; B35.1 Tinea unguium; Z89.421 Acquired absence of other right toe(s); Z79.4 Long term (current) use of insulin; Z79.84 Long term (current) use of oral hypoglycemic drugs
CPT/HCPCS: 11042; 11043; J7040

== ENCOUNTER 2021-09-02 10:50 | Outpatient (CLI) | payer MEDICARE, OTHER ==
[2021-09-02] MEDS ORDERED: SILVER SULFADIAZINE CREAM 25 GM TUBE ONE (11:32)
== END 2021-09-02 23:59 | disposition home or self-care (01) ==
LOC: WOU 10:50
PROVIDERS: ATTEND Podiatrist Foot & Ankle Surgery
DX: E11.621 Type 2 diabetes mellitus with foot ulcer (principal); L97.413 Non-pressure chronic ulcer of right heel and midfoot with necrosis of muscle; L97.512 Non-pressure chronic ulcer of other part of right foot with fat layer exposed; E11.42 Type 2 diabetes mellitus with diabetic polyneuropathy; E11.69 Type 2 diabetes mellitus with other specified complication; M86.671 Other chronic osteomyelitis, right ankle and foot; Z79.4 Long term (current) use of insulin; Z79.84 Long term (current) use of oral hypoglycemic drugs; Z89.421 Acquired absence of other right toe(s)
CPT/HCPCS: 11042; 11043; J7040

== ENCOUNTER 2021-09-06 09:45 | Outpatient (CLI) | payer MEDICARE, OTHER ==
[2021-09-06] MEDS ORDERED: SILVER SULFADIAZINE CREAM 25 GM TUBE ONE (10:29)
== END 2021-09-06 23:59 | disposition home or self-care (01) ==
LOC: WOU 09:45
PROVIDERS: ATTEND Podiatrist Foot & Ankle Surgery
DX: E11.621 Type 2 diabetes mellitus with foot ulcer (principal); L97.413 Non-pressure chronic ulcer of right heel and midfoot with necrosis of muscle; E11.42 Type 2 diabetes mellitus with diabetic polyneuropathy; E11.69 Type 2 diabetes mellitus with other specified complication; M86.671 Other chronic osteomyelitis, right ankle and foot; B96.20 Unspecified Escherichia coli [E. coli] as the cause of diseases classified elsewhere; Z79.4 Long term (current) use of insulin; Z79.84 Long term (current) use of oral hypoglycemic drugs; B35.1 Tinea unguium
CPT/HCPCS: 11043; J7040

== ENCOUNTER 2021-09-09 09:11 | Outpatient (CLI) | payer MEDICARE, OTHER ==
[2021-09-09] MEDS ORDERED: SILVER SULFADIAZINE CREAM 25 GM TUBE ONE (10:18)
== END 2021-09-09 23:59 | disposition home or self-care (01) ==
LOC: WOU 09:11
PROVIDERS: ATTEND Podiatrist Foot & Ankle Surgery
DX: E11.621 Type 2 diabetes mellitus with foot ulcer (principal); L97.413 Non-pressure chronic ulcer of right heel and midfoot with necrosis of muscle; E11.42 Type 2 diabetes mellitus with diabetic polyneuropathy; E11.69 Type 2 diabetes mellitus with other specified complication; B96.20 Unspecified Escherichia coli [E. coli] as the cause of diseases classified elsewhere; M86.671 Other chronic osteomyelitis, right ankle and foot; B35.1 Tinea unguium; Z89.421 Acquired absence of other right toe(s); Z79.4 Long term (current) use of insulin; Z79.84 Long term (current) use of oral hypoglycemic drugs
CPT/HCPCS: 11043; J7040

== ENCOUNTER 2021-09-13 09:45 | Outpatient (CLI) | payer MEDICARE, OTHER ==
[2021-09-13] MEDS ORDERED: SILVER SULFADIAZINE CREAM 25 GM TUBE ONE (10:42)
== END 2021-09-13 23:59 | disposition home or self-care (01) ==
LOC: WOU 09:45
PROVIDERS: ATTEND Podiatrist Foot & Ankle Surgery
DX: E11.621 Type 2 diabetes mellitus with foot ulcer (principal); L97.413 Non-pressure chronic ulcer of right heel and midfoot with necrosis of muscle; E11.42 Type 2 diabetes mellitus with diabetic polyneuropathy; E11.69 Type 2 diabetes mellitus with other specified complication; M86.671 Other chronic osteomyelitis, right ankle and foot; Z79.4 Long term (current) use of insulin; Z79.84 Long term (current) use of oral hypoglycemic drugs; B35.1 Tinea unguium
CPT/HCPCS: 11043; J7040

== ENCOUNTER 2021-09-20 09:30 | Outpatient (CLI) | payer MEDICARE, OTHER ==
[2021-09-20] MEDS ORDERED: GENTAMICIN 0.1% CREAM 15 GM TUBE ONE (10:06)
[2021-09-20] MEDS ORDERED: SILVER SULFADIAZINE CREAM 25 GM TUBE ONE (10:06)
== END 2021-09-20 23:59 | disposition home or self-care (01) ==
LOC: WOU 09:30
PROVIDERS: ATTEND Podiatrist Foot & Ankle Surgery
DX: E11.621 Type 2 diabetes mellitus with foot ulcer (principal); L97.413 Non-pressure chronic ulcer of right heel and midfoot with necrosis of muscle; E11.42 Type 2 diabetes mellitus with diabetic polyneuropathy; E11.69 Type 2 diabetes mellitus with other specified complication; M86.671 Other chronic osteomyelitis, right ankle and foot; Z79.4 Long term (current) use of insulin; Z79.84 Long term (current) use of oral hypoglycemic drugs; L60.1 Onycholysis; B35.1 Tinea unguium; L03.032 Cellulitis of left toe
CPT/HCPCS: 11043; 11730; J7040

== ENCOUNTER 2021-09-23 10:00 | Outpatient (CLI) | payer MEDICARE, OTHER ==
[2021-09-23] MEDS ORDERED: SILVER SULFADIAZINE CREAM 25 GM TUBE ONE (10:25)
[2021-09-23 11:48] LABS: BASOPHILS % (AUTO) 0.5 % (0.0-2.0); EOSINOPHILS % (AUTO) 2.5 % (0.0-6.0); HEMATOCRIT 45 % (39-51); HEMOGLOBIN 15.1 g/dL (13.5-17.5); LYMPHOCYTES # (AUTO) 1.6 K/uL (0.8-4.8); LYMPHOCYTES % (AUTO) 22.3 % (20.0-44.0); MEAN CORPUSCULAR HGB CONC 34 g/dl (31.0-36.0); MEAN CORPUSCULAR VOLUME 81 fL (80-96); MONOCYTES # (AUTO) 0.3 K/uL (0.1-1.30); MONOCYTES % (AUTO) 4.8 % (2.0-12.0); NEUTROPHILS % (AUTO) 69.9 % (43.0-81.0); PLATELET COUNT (AUTO) 313 K/uL (150-450); RED BLOOD CELL COUNT(AUTO) 5.54 MIL/uL (4.5-6.0); WHITE BLOOD COUNT (AUTO) 7.2 K/uL (4.3-11.0)
[2021-09-23 12:26] LABS: C-REACTIVE PROTEIN 1.7 mg/dL (0.0-0.9)
[2021-09-23 14:11] LABS: ALBUMIN 3.6 g/dL (3.4-5.0); CALCIUM, SERUM 9.2 mg/dL (8.5-10.1); POTASSIUM 4.3 mmol/L (3.5-5.1)
== END 2021-09-23 23:59 | disposition home or self-care (01) ==
LOC: WOU 10:00
PROVIDERS: ATTEND Podiatrist Foot & Ankle Surgery
DX: E11.621 Type 2 diabetes mellitus with foot ulcer (principal); L97.414 Non-pressure chronic ulcer of right heel and midfoot with necrosis of bone; E11.42 Type 2 diabetes mellitus with diabetic polyneuropathy; E11.69 Type 2 diabetes mellitus with other specified complication; M86.671 Other chronic osteomyelitis, right ankle and foot; B35.1 Tinea unguium; B96.20 Unspecified Escherichia coli [E. coli] as the cause of diseases classified elsewhere; Z79.4 Long term (current) use of insulin; Z79.84 Long term (current) use of oral hypoglycemic drugs
CPT/HCPCS: 11044; 36415; 80048; 82040; 83036; 84145; 85025; 85652; 86140; 87070; 87075; 87077; 87186 ×2; J7040

== ENCOUNTER 2021-09-27 09:10 | Outpatient (CLI) | payer MEDICARE, OTHER ==
[2021-09-27] MEDS ORDERED: SILVER SULFADIAZINE CREAM 25 GM TUBE ONE (09:51)
[2021-09-27] MEDS ORDERED: GENTAMICIN 0.1% CREAM 15 GM TUBE ONE (10:01)
== END 2021-09-27 23:59 | disposition home or self-care (01) ==
LOC: WOU 09:10
PROVIDERS: ATTEND Podiatrist Foot & Ankle Surgery
DX: E11.621 Type 2 diabetes mellitus with foot ulcer (principal); L97.414 Non-pressure chronic ulcer of right heel and midfoot with necrosis of bone; E11.42 Type 2 diabetes mellitus with diabetic polyneuropathy; E11.69 Type 2 diabetes mellitus with other specified complication; M86.671 Other chronic osteomyelitis, right ankle and foot; B96.20 Unspecified Escherichia coli [E. coli] as the cause of diseases classified elsewhere; B35.1 Tinea unguium; Z79.4 Long term (current) use of insulin; Z79.84 Long term (current) use of oral hypoglycemic drugs
CPT/HCPCS: 11043; J7040

== ENCOUNTER 2021-09-30 08:55 | Outpatient (CLI) | payer MEDICARE, OTHER | END 2021-09-30 23:59 | disposition home or self-care (01) | LOC: WOU 08:55 | PROVIDERS: ATTEND Podiatrist Foot & Ankle Surgery | DX: E11.621 Type 2 diabetes mellitus with foot ulcer (principal); L97.414 Non-pressure chronic ulcer of right heel and midfoot with necrosis of bone; E11.42 Type 2 diabetes mellitus with diabetic polyneuropathy; E11.69 Type 2 diabetes mellitus with other specified complication; M86.671 Other chronic osteomyelitis, right ankle and foot; B35.1 Tinea unguium; Z79.84 Long term (current) use of oral hypoglycemic drugs; Z79.4 Long term (current) use of insulin | CPT/HCPCS: 11043; J7040 ==

== ENCOUNTER 2021-09-30 10:32 | Outpatient (CLI) | payer MEDICARE, OTHER | END 2021-09-30 23:59 | disposition home or self-care (01) | LOC: MRI 10:32 | PROVIDERS: ATTEND Podiatrist Foot & Ankle Surgery | DX: E11.621 Type 2 diabetes mellitus with foot ulcer (principal); L97.414 Non-pressure chronic ulcer of right heel and midfoot with necrosis of bone | CPT/HCPCS: 87070-TC; 87075-TC; 87186-TC ==

== ENCOUNTER 2021-10-04 09:30 | Outpatient (CLI) | payer MEDICARE, OTHER ==
[2021-10-04] MEDS ORDERED: GENTAMICIN 0.1% CREAM 15 GM TUBE ONE (11:17)
== END 2021-10-04 23:59 | disposition home or self-care (01) ==
LOC: WOU 09:30
PROVIDERS: ATTEND Podiatrist Foot & Ankle Surgery
DX: E11.621 Type 2 diabetes mellitus with foot ulcer (principal); L97.414 Non-pressure chronic ulcer of right heel and midfoot with necrosis of bone; E11.42 Type 2 diabetes mellitus with diabetic polyneuropathy; E11.69 Type 2 diabetes mellitus with other specified complication; M86.671 Other chronic osteomyelitis, right ankle and foot; B35.1 Tinea unguium; Z79.4 Long term (current) use of insulin; Z79.84 Long term (current) use of oral hypoglycemic drugs; B95.2 Enterococcus as the cause of diseases classified elsewhere; B96.20 Unspecified Escherichia coli [E. coli] as the cause of diseases classified elsewhere
CPT/HCPCS: 11043; 87070; 87075; 87077; 87186; J7040

== ENCOUNTER → 2021-10-06 | Outpatient (CLI) | payer MEDICARE, OTHER | END | disposition home or self-care (01) | LOC: WOU 12:30 | PROVIDERS: ATTEND Registered Nurse | DX: M86.171 Other acute osteomyelitis, right ankle and foot (principal); B95.2 Enterococcus as the cause of diseases classified elsewhere; B96.20 Unspecified Escherichia coli [E. coli] as the cause of diseases classified elsewhere; M86.671 Other chronic osteomyelitis, right ankle and foot; E11.621 Type 2 diabetes mellitus with foot ulcer; L97.519 Non-pressure chronic ulcer of other part of right foot with unspecified severity; Z79.4 Long term (current) use of insulin; Z79.84 Long term (current) use of oral hypoglycemic drugs; I10 Essential (primary) hypertension; Z86.16 Personal history of COVID-19; Z91.19 Patient's noncompliance with other medical treatment and regimen; Z88.0 Allergy status to penicillin | CPT/HCPCS: G0463 ==

== ENCOUNTER → 2021-10-07 | Outpatient (CLI) | payer MEDICARE, OTHER ==
[~2021-10-07] MED LIST changes: +GENTAMICIN 0.1% CREAM 15 GM TUBE ONE
== END | disposition home or self-care (01) ==
LOC: WOU 09:00
PROVIDERS: ATTEND Podiatrist Foot & Ankle Surgery
DX: E11.621 Type 2 diabetes mellitus with foot ulcer (principal); L97.422 Non-pressure chronic ulcer of left heel and midfoot with fat layer exposed; L97.414 Non-pressure chronic ulcer of right heel and midfoot with necrosis of bone; E11.42 Type 2 diabetes mellitus with diabetic polyneuropathy; E11.69 Type 2 diabetes mellitus with other specified complication; M86.671 Other chronic osteomyelitis, right ankle and foot; B35.1 Tinea unguium; Z79.4 Long term (current) use of insulin; Z79.84 Long term (current) use of oral hypoglycemic drugs
CPT/HCPCS: 11042; 11043; J7050

== ENCOUNTER 2021-10-18 09:00 | Outpatient (CLI) | payer MEDICARE, OTHER ==
[~2021-10-18 09:00] MED LIST changes: -GENTAMICIN 0.1% CREAM 15 GM TUBE ONE
[2021-10-18] MEDS ORDERED: GENTAMICIN 0.1% CREAM 15 GM TUBE ONE (09:31)
== END 2021-10-18 23:59 | disposition home or self-care (01) ==
LOC: WOU 09:00
PROVIDERS: ATTEND Podiatrist Foot & Ankle Surgery
DX: E11.621 Type 2 diabetes mellitus with foot ulcer (principal); L97.414 Non-pressure chronic ulcer of right heel and midfoot with necrosis of bone; L97.428 Non-pressure chronic ulcer of left heel and midfoot with other specified severity; E11.42 Type 2 diabetes mellitus with diabetic polyneuropathy; E11.69 Type 2 diabetes mellitus with other specified complication; M86.671 Other chronic osteomyelitis, right ankle and foot; B95.2 Enterococcus as the cause of diseases classified elsewhere; B96.20 Unspecified Escherichia coli [E. coli] as the cause of diseases classified elsewhere; Z79.4 Long term (current) use of insulin; Z79.84 Long term (current) use of oral hypoglycemic drugs; B35.1 Tinea unguium
CPT/HCPCS: 11043; J7040

== ENCOUNTER 2021-10-19 11:30 | Outpatient (CLI) | payer MEDICARE, OTHER ==
[2021-10-19] MEDS ORDERED: GENTAMICIN 0.1% CREAM 15 GM TUBE ONE (12:21)
[2021-10-21] MEDS ORDERED: GENTAMICIN 0.1% CREAM 15 GM TUBE ONE (10:31)
== END 2021-10-19 23:59 | disposition home or self-care (01) ==
LOC: WOU 11:30
PROVIDERS: ATTEND Specialist
DX: E11.69 Type 2 diabetes mellitus with other specified complication (principal); M86.671 Other chronic osteomyelitis, right ankle and foot; E11.42 Type 2 diabetes mellitus with diabetic polyneuropathy; E11.621 Type 2 diabetes mellitus with foot ulcer; L97.414 Non-pressure chronic ulcer of right heel and midfoot with necrosis of bone; B35.1 Tinea unguium; Z79.4 Long term (current) use of insulin; Z79.84 Long term (current) use of oral hypoglycemic drugs
CPT/HCPCS: G0463

== ENCOUNTER 2021-10-21 09:15 | Outpatient (CLI) | payer MEDICARE, OTHER | END 2021-10-21 23:59 | disposition home or self-care (01) | LOC: WOU 09:15 | PROVIDERS: ATTEND Podiatrist Foot & Ankle Surgery | DX: E11.621 Type 2 diabetes mellitus with foot ulcer (principal); L97.414 Non-pressure chronic ulcer of right heel and midfoot with necrosis of bone; E11.42 Type 2 diabetes mellitus with diabetic polyneuropathy; E11.69 Type 2 diabetes mellitus with other specified complication; M86.671 Other chronic osteomyelitis, right ankle and foot; B96.20 Unspecified Escherichia coli [E. coli] as the cause of diseases classified elsewhere; B95.2 Enterococcus as the cause of diseases classified elsewhere; B35.1 Tinea unguium; Z79.4 Long term (current) use of insulin; Z79.84 Long term (current) use of oral hypoglycemic drugs | CPT/HCPCS: 11043; J7040 ==

== ENCOUNTER 2021-10-28 09:44 | Outpatient (CLI) | payer MEDICARE, OTHER ==
[2021-10-28] MEDS ORDERED: GENTAMICIN 0.1% CREAM 15 GM TUBE ONE (10:31)
[2021-10-28] MEDS ORDERED: DAKINS HALF STRENGTH (0.25%) 480 ML BOTTLE ONE (10:33)
== END 2021-10-28 23:59 | disposition home or self-care (01) ==
LOC: WOU 09:44
PROVIDERS: ATTEND Podiatrist Foot & Ankle Surgery
DX: Z75.3 Unavailability and inaccessibility of health-care facilities (principal)

== ENCOUNTER 2021-10-28 10:47 | Outpatient (CLI) | payer MEDICARE, OTHER | END 2021-10-28 23:59 | disposition home health service (06) | LOC: WOU 10:47 | PROVIDERS: ATTEND Registered Nurse | DX: E11.621 Type 2 diabetes mellitus with foot ulcer (principal); L97.414 Non-pressure chronic ulcer of right heel and midfoot with necrosis of bone; E11.42 Type 2 diabetes mellitus with diabetic polyneuropathy; E11.69 Type 2 diabetes mellitus with other specified complication; M86.671 Other chronic osteomyelitis, right ankle and foot; B35.1 Tinea unguium; Z79.4 Long term (current) use of insulin; Z79.84 Long term (current) use of oral hypoglycemic drugs | CPT/HCPCS: 11043; 87070; 87075; 87077; 87186 ×3; G0463 ==

== ENCOUNTER 2021-11-01 11:23 | Outpatient (CLI) | payer MEDICARE, OTHER | END 2021-11-01 23:59 | disposition home health service (06) | LOC: WOU 11:23 | PROVIDERS: ATTEND Podiatrist Foot & Ankle Surgery | DX: E11.621 Type 2 diabetes mellitus with foot ulcer (principal); L97.414 Non-pressure chronic ulcer of right heel and midfoot with necrosis of bone; E11.42 Type 2 diabetes mellitus with diabetic polyneuropathy; E11.69 Type 2 diabetes mellitus with other specified complication; M86.671 Other chronic osteomyelitis, right ankle and foot; B35.1 Tinea unguium; Z79.4 Long term (current) use of insulin; Z79.84 Long term (current) use of oral hypoglycemic drugs; B96.20 Unspecified Escherichia coli [E. coli] as the cause of diseases classified elsewhere | CPT/HCPCS: 11043; 87070-TC; 87075-TC; 87186-TC ==

== ENCOUNTER 2021-11-04 09:39 | Outpatient (CLI) | payer MEDICARE, OTHER ==
[2021-11-04] MEDS ORDERED: GENTAMICIN 0.1% CREAM 15 GM TUBE ONE (10:19)
== END 2021-11-04 23:59 | disposition home health service (06) ==
LOC: WOU 09:39
PROVIDERS: ATTEND Podiatrist Foot & Ankle Surgery
DX: E11.621 Type 2 diabetes mellitus with foot ulcer (principal); L97.414 Non-pressure chronic ulcer of right heel and midfoot with necrosis of bone; S81.852A Open bite, left lower leg, initial encounter; S81.851A Open bite, right lower leg, initial encounter; W57.XXXA Bitten or stung by nonvenomous insect and other nonvenomous arthropods, initial encounter; Y92.89 Other specified places as the place of occurrence of the external cause; E11.42 Type 2 diabetes mellitus with diabetic polyneuropathy; E11.69 Type 2 diabetes mellitus with other specified complication; M86.672 Other chronic osteomyelitis, left ankle and foot; Z79.4 Long term (current) use of insulin; Z79.84 Long term (current) use of oral hypoglycemic drugs; B35.1 Tinea unguium; L84 Corns and callosities
CPT/HCPCS: 11043; G0463

== ENCOUNTER 2021-11-08 10:20 | Outpatient (CLI) | payer MEDICARE, OTHER | END 2021-11-08 23:59 | disposition home health service (06) | LOC: WOU 10:20 | PROVIDERS: ATTEND Podiatrist Foot & Ankle Surgery | DX: E11.621 Type 2 diabetes mellitus with foot ulcer (principal); L97.413 Non-pressure chronic ulcer of right heel and midfoot with necrosis of muscle; S81.852D Open bite, left lower leg, subsequent encounter; W57.XXXD Bitten or stung by nonvenomous insect and other nonvenomous arthropods, subsequent encounter; E11.42 Type 2 diabetes mellitus with diabetic polyneuropathy; E11.69 Type 2 diabetes mellitus with other specified complication; M86.671 Other chronic osteomyelitis, right ankle and foot; Z79.4 Long term (current) use of insulin; Z79.84 Long term (current) use of oral hypoglycemic drugs; B35.1 Tinea unguium | CPT/HCPCS: 11043; 82962-TC ==

== ENCOUNTER → 2021-11-11 | Outpatient (CLI) | payer MEDICARE, OTHER | END | disposition home or self-care (01) | LOC: WOU 11:20 | PROVIDERS: ATTEND Podiatrist Foot & Ankle Surgery | DX: E11.621 Type 2 diabetes mellitus with foot ulcer (principal); L97.413 Non-pressure chronic ulcer of right heel and midfoot with necrosis of muscle; E11.42 Type 2 diabetes mellitus with diabetic polyneuropathy; E11.69 Type 2 diabetes mellitus with other specified complication; M86.671 Other chronic osteomyelitis, right ankle and foot; B96.20 Unspecified Escherichia coli [E. coli] as the cause of diseases classified elsewhere; B95.2 Enterococcus as the cause of diseases classified elsewhere; B95.8 Unspecified staphylococcus as the cause of diseases classified elsewhere; Z79.4 Long term (current) use of insulin; Z79.84 Long term (current) use of oral hypoglycemic drugs; B35.1 Tinea unguium; S80.862D Insect bite (nonvenomous), left lower leg, subsequent encounter; W57.XXXD Bitten or stung by nonvenomous insect and other nonvenomous arthropods, subsequent encounter | CPT/HCPCS: 11043 ==

== ENCOUNTER 2021-11-25 09:30 | Outpatient (CLI) | payer MEDICARE, OTHER ==
[2021-11-25] MEDS ORDERED: DAKINS HALF STRENGTH (0.25%) 480 ML BOTTLE ONE (11:30)
== END 2021-11-25 23:59 | disposition home or self-care (01) ==
LOC: WOU 09:30
PROVIDERS: ATTEND Podiatrist Foot & Ankle Surgery
DX: E11.621 Type 2 diabetes mellitus with foot ulcer (principal); L97.413 Non-pressure chronic ulcer of right heel and midfoot with necrosis of muscle; E11.42 Type 2 diabetes mellitus with diabetic polyneuropathy; E11.69 Type 2 diabetes mellitus with other specified complication; M86.671 Other chronic osteomyelitis, right ankle and foot; Z79.4 Long term (current) use of insulin; Z79.84 Long term (current) use of oral hypoglycemic drugs; S80.862D Insect bite (nonvenomous), left lower leg, subsequent encounter; W57.XXXD Bitten or stung by nonvenomous insect and other nonvenomous arthropods, subsequent encounter; B35.1 Tinea unguium
CPT/HCPCS: 11043; 82962-TC

== ENCOUNTER 2021-11-29 10:00 | Outpatient (CLI) | payer MEDICARE, OTHER | END 2021-11-29 23:59 | disposition home or self-care (01) | LOC: WOU 10:00 | PROVIDERS: ATTEND Podiatrist Foot & Ankle Surgery | DX: E11.621 Type 2 diabetes mellitus with foot ulcer (principal); L97.413 Non-pressure chronic ulcer of right heel and midfoot with necrosis of muscle; L97.522 Non-pressure chronic ulcer of other part of left foot with fat layer exposed; S80.862A Insect bite (nonvenomous), left lower leg, initial encounter; W57.XXXA Bitten or stung by nonvenomous insect and other nonvenomous arthropods, initial encounter; Y92.89 Other specified places as the place of occurrence of the external cause; E11.42 Type 2 diabetes mellitus with diabetic polyneuropathy; E11.69 Type 2 diabetes mellitus with other specified complication; M86.671 Other chronic osteomyelitis, right ankle and foot; B35.1 Tinea unguium; Z79.4 Long term (current) use of insulin; Z79.84 Long term (current) use of oral hypoglycemic drugs | CPT/HCPCS: 11042; 11043; 87070-TC; 87075-TC; 87186-TC ==

== ENCOUNTER 2021-12-02 09:43 | Outpatient (CLI) | payer MEDICARE, OTHER ==
[2021-12-02] MEDS ORDERED: DAKINS HALF STRENGTH (0.25%) 480 ML BOTTLE ONE (09:56)
== END 2021-12-02 23:59 | disposition home or self-care (01) ==
LOC: WOU 09:43
PROVIDERS: ATTEND Podiatrist Foot & Ankle Surgery
DX: E11.621 Type 2 diabetes mellitus with foot ulcer (principal); L97.413 Non-pressure chronic ulcer of right heel and midfoot with necrosis of muscle; L97.522 Non-pressure chronic ulcer of other part of left foot with fat layer exposed; S80.862D Insect bite (nonvenomous), left lower leg, subsequent encounter; W57.XXXD Bitten or stung by nonvenomous insect and other nonvenomous arthropods, subsequent encounter; E11.69 Type 2 diabetes mellitus with other specified complication; E11.42 Type 2 diabetes mellitus with diabetic polyneuropathy; M86.671 Other chronic osteomyelitis, right ankle and foot; Z79.4 Long term (current) use of insulin; Z79.84 Long term (current) use of oral hypoglycemic drugs; B35.1 Tinea unguium
CPT/HCPCS: 11042; 11043

== ENCOUNTER 2021-12-06 10:20 | Outpatient (CLI) | payer MEDICARE, OTHER | END 2021-12-06 23:59 | disposition home or self-care (01) | LOC: WOU 10:20 | PROVIDERS: ATTEND Podiatrist Foot & Ankle Surgery | DX: E11.621 Type 2 diabetes mellitus with foot ulcer (principal); L97.413 Non-pressure chronic ulcer of right heel and midfoot with necrosis of muscle; L97.522 Non-pressure chronic ulcer of other part of left foot with fat layer exposed; S80.862D Insect bite (nonvenomous), left lower leg, subsequent encounter; W57.XXXD Bitten or stung by nonvenomous insect and other nonvenomous arthropods, subsequent encounter; E11.69 Type 2 diabetes mellitus with other specified complication; E11.42 Type 2 diabetes mellitus with diabetic polyneuropathy; M86.671 Other chronic osteomyelitis, right ankle and foot; Z79.4 Long term (current) use of insulin; Z79.84 Long term (current) use of oral hypoglycemic drugs; B35.1 Tinea unguium; B96.89 Other specified bacterial agents as the cause of diseases classified elsewhere; Z16.10 Resistance to unspecified beta lactam antibiotics | CPT/HCPCS: 11043; J7040 ==

== ENCOUNTER 2021-12-16 10:20 | Outpatient (CLI) | payer MEDICARE, OTHER | END 2021-12-16 23:59 | disposition home or self-care (01) | LOC: WOU 10:20 | PROVIDERS: ATTEND Podiatrist Foot & Ankle Surgery | DX: E11.621 Type 2 diabetes mellitus with foot ulcer (principal); L97.414 Non-pressure chronic ulcer of right heel and midfoot with necrosis of bone; E11.42 Type 2 diabetes mellitus with diabetic polyneuropathy; L97.422 Non-pressure chronic ulcer of left heel and midfoot with fat layer exposed; S80.862D Insect bite (nonvenomous), left lower leg, subsequent encounter; W57.XXXD Bitten or stung by nonvenomous insect and other nonvenomous arthropods, subsequent encounter; E11.69 Type 2 diabetes mellitus with other specified complication; M86.671 Other chronic osteomyelitis, right ankle and foot; L84 Corns and callosities; M25.571 Pain in right ankle and joints of right foot; E78.5 Hyperlipidemia, unspecified; Z79.4 Long term (current) use of insulin; Z79.84 Long term (current) use of oral hypoglycemic drugs | CPT/HCPCS: 11043; 11042; 73610; 73590; J7040 ==

== ENCOUNTER 2021-12-20 10:00 | Outpatient (CLI) | payer MEDICARE, OTHER | END 2021-12-20 23:59 | disposition home or self-care (01) | LOC: WOU 10:00 | PROVIDERS: ATTEND Podiatrist Foot & Ankle Surgery | DX: E11.621 Type 2 diabetes mellitus with foot ulcer (principal); L97.414 Non-pressure chronic ulcer of right heel and midfoot with necrosis of bone; S80.862S Insect bite (nonvenomous), left lower leg, sequela; L97.822 Non-pressure chronic ulcer of other part of left lower leg with fat layer exposed; W57.XXXS Bitten or stung by nonvenomous insect and other nonvenomous arthropods, sequela; E11.42 Type 2 diabetes mellitus with diabetic polyneuropathy; B35.1 Tinea unguium; E11.69 Type 2 diabetes mellitus with other specified complication; M86.671 Other chronic osteomyelitis, right ankle and foot; M25.571 Pain in right ankle and joints of right foot; Z79.4 Long term (current) use of insulin; Z79.84 Long term (current) use of oral hypoglycemic drugs | CPT/HCPCS: 11043; 11042; 82962 ×2; J7040; A6197 ==

== ENCOUNTER 2021-12-23 09:30 | Outpatient (CLI) | payer MEDICARE, OTHER ==
[2021-12-23] MEDS ORDERED: DAKINS HALF STRENGTH (0.25%) 480 ML BOTTLE ONE (09:35)
== END 2021-12-23 23:59 | disposition home or self-care (01) ==
LOC: WOU 09:30
PROVIDERS: ATTEND Podiatrist Foot & Ankle Surgery
DX: E11.621 Type 2 diabetes mellitus with foot ulcer (principal); L97.414 Non-pressure chronic ulcer of right heel and midfoot with necrosis of bone; M25.571 Pain in right ankle and joints of right foot; E11.42 Type 2 diabetes mellitus with diabetic polyneuropathy; E11.69 Type 2 diabetes mellitus with other specified complication; M86.671 Other chronic osteomyelitis, right ankle and foot; S80.862D Insect bite (nonvenomous), left lower leg, subsequent encounter; W57.XXXD Bitten or stung by nonvenomous insect and other nonvenomous arthropods, subsequent encounter; Z79.84 Long term (current) use of oral hypoglycemic drugs
CPT/HCPCS: 11043; J7040

== ENCOUNTER 2021-12-27 09:45 | Outpatient (CLI) | payer MEDICARE, OTHER ==
[2021-12-27] MEDS ORDERED: GENTAMICIN 0.1% CREAM 15 GM TUBE ONE (10:34)
== END 2021-12-27 23:59 | disposition home or self-care (01) ==
LOC: WOU 09:45
PROVIDERS: ATTEND Podiatrist Foot & Ankle Surgery
DX: E11.621 Type 2 diabetes mellitus with foot ulcer (principal); E11.622 Type 2 diabetes mellitus with other skin ulcer; L97.414 Non-pressure chronic ulcer of right heel and midfoot with necrosis of bone; E11.42 Type 2 diabetes mellitus with diabetic polyneuropathy; E11.69 Type 2 diabetes mellitus with other specified complication; M86.671 Other chronic osteomyelitis, right ankle and foot; B35.1 Tinea unguium; S80.862D Insect bite (nonvenomous), left lower leg, subsequent encounter; W57.XXXD Bitten or stung by nonvenomous insect and other nonvenomous arthropods, subsequent encounter; Z79.84 Long term (current) use of oral hypoglycemic drugs
CPT/HCPCS: 11043; J7040

== ENCOUNTER → 2021-12-30 | Outpatient (CLI) | payer MEDICARE, OTHER ==
[~2021-12-30] MED LIST changes: +DAKINS HALF STRENGTH (0.25%) 480 ML BOTTLE ONE; +GENTAMICIN 0.1% CREAM 15 GM TUBE ONE
== END | disposition home or self-care (01) ==
LOC: WOU 11:00
PROVIDERS: ATTEND Podiatrist Foot & Ankle Surgery
DX: E11.621 Type 2 diabetes mellitus with foot ulcer (principal); L97.413 Non-pressure chronic ulcer of right heel and midfoot with necrosis of muscle; E11.42 Type 2 diabetes mellitus with diabetic polyneuropathy; E11.69 Type 2 diabetes mellitus with other specified complication; M86.671 Other chronic osteomyelitis, right ankle and foot; B35.1 Tinea unguium; M25.571 Pain in right ankle and joints of right foot; Z79.4 Long term (current) use of insulin; Z79.84 Long term (current) use of oral hypoglycemic drugs
CPT/HCPCS: 11043; 87077; 87075; 87070; 87186 ×4; J7040; A6197

== ENCOUNTER → 2022-01-03 | Outpatient (CLI) | payer MEDICARE, OTHER ==
[~2022-01-03] MED LIST changes: -DAKINS HALF STRENGTH (0.25%) 480 ML BOTTLE ONE
== END | disposition home or self-care (01) ==
LOC: WOU 11:20
PROVIDERS: ATTEND Podiatrist Foot & Ankle Surgery
DX: E11.621 Type 2 diabetes mellitus with foot ulcer (principal); L97.413 Non-pressure chronic ulcer of right heel and midfoot with necrosis of muscle; E11.42 Type 2 diabetes mellitus with diabetic polyneuropathy; E11.69 Type 2 diabetes mellitus with other specified complication; M86.671 Other chronic osteomyelitis, right ankle and foot; B35.1 Tinea unguium; M25.571 Pain in right ankle and joints of right foot; B96.20 Unspecified Escherichia coli [E. coli] as the cause of diseases classified elsewhere; Z79.4 Long term (current) use of insulin; Z79.84 Long term (current) use of oral hypoglycemic drugs
CPT/HCPCS: 11043; J7040; A6197

== ENCOUNTER 2022-01-06 11:30 | Outpatient (CLI) | payer MEDICARE, OTHER ==
[~2022-01-06 11:30] MED LIST changes: -GENTAMICIN 0.1% CREAM 15 GM TUBE ONE
[2022-01-06] MEDS ORDERED: GENTAMICIN 0.1% CREAM 15 GM TUBE ONE (12:22)
== END 2022-01-06 23:59 | disposition home or self-care (01) ==
LOC: WOU 11:30
PROVIDERS: ATTEND Podiatrist Foot & Ankle Surgery
DX: E11.621 Type 2 diabetes mellitus with foot ulcer (principal); L97.413 Non-pressure chronic ulcer of right heel and midfoot with necrosis of muscle; E11.69 Type 2 diabetes mellitus with other specified complication; E11.42 Type 2 diabetes mellitus with diabetic polyneuropathy; Z79.4 Long term (current) use of insulin; Z79.84 Long term (current) use of oral hypoglycemic drugs; B35.1 Tinea unguium; M25.571 Pain in right ankle and joints of right foot
CPT/HCPCS: 11043; J7040; A6197

== ENCOUNTER 2022-01-13 09:00 | Outpatient (CLI) | payer MEDICARE, OTHER ==
[2022-01-13] MEDS ORDERED: GENTAMICIN 0.1% CREAM 15 GM TUBE ONE (09:46)
== END 2022-01-13 23:59 | disposition home or self-care (01) ==
LOC: WOU 09:00
PROVIDERS: ATTEND Podiatrist Foot & Ankle Surgery
DX: E11.621 Type 2 diabetes mellitus with foot ulcer (principal); L97.413 Non-pressure chronic ulcer of right heel and midfoot with necrosis of muscle; L97.522 Non-pressure chronic ulcer of other part of left foot with fat layer exposed; E11.42 Type 2 diabetes mellitus with diabetic polyneuropathy; E11.69 Type 2 diabetes mellitus with other specified complication; M86.671 Other chronic osteomyelitis, right ankle and foot; B35.1 Tinea unguium; M25.571 Pain in right ankle and joints of right foot; Z79.4 Long term (current) use of insulin; Z79.84 Long term (current) use of oral hypoglycemic drugs
CPT/HCPCS: 11043; J7040

== ENCOUNTER 2022-01-20 09:45 | Outpatient (CLI) | payer MEDICARE, OTHER ==
[2022-01-20] MEDS ORDERED: GENTAMICIN 0.1% CREAM 15 GM TUBE ONE (10:24)
== END 2022-01-20 23:59 | disposition home health service (06) ==
LOC: WOU 09:45
PROVIDERS: ATTEND Podiatrist Foot & Ankle Surgery
DX: E11.621 Type 2 diabetes mellitus with foot ulcer (principal); L97.413 Non-pressure chronic ulcer of right heel and midfoot with necrosis of muscle; L84 Corns and callosities; E11.42 Type 2 diabetes mellitus with diabetic polyneuropathy; E11.69 Type 2 diabetes mellitus with other specified complication; M86.671 Other chronic osteomyelitis, right ankle and foot; M25.571 Pain in right ankle and joints of right foot; B35.1 Tinea unguium; Z79.4 Long term (current) use of insulin; Z79.84 Long term (current) use of oral hypoglycemic drugs
CPT/HCPCS: 11043; 11055; 87077; 87075; 87070; 87186 ×2; J7040; A6197

== ENCOUNTER 2022-01-24 10:30 | Outpatient (CLI) | payer MEDICARE, OTHER | END 2022-01-24 23:59 | disposition home health service (06) | LOC: WOU 10:30 | PROVIDERS: ATTEND Podiatrist Foot & Ankle Surgery | DX: E11.621 Type 2 diabetes mellitus with foot ulcer (principal); L97.413 Non-pressure chronic ulcer of right heel and midfoot with necrosis of muscle; E11.42 Type 2 diabetes mellitus with diabetic polyneuropathy; E11.69 Type 2 diabetes mellitus with other specified complication; M86.671 Other chronic osteomyelitis, right ankle and foot; B96.20 Unspecified Escherichia coli [E. coli] as the cause of diseases classified elsewhere; B96.4 Proteus (mirabilis) (morganii) as the cause of diseases classified elsewhere; Z79.4 Long term (current) use of insulin; Z79.84 Long term (current) use of oral hypoglycemic drugs; M25.571 Pain in right ankle and joints of right foot; B35.1 Tinea unguium; Z91.14 Patient's other noncompliance with medication regimen | CPT/HCPCS: 11043; J7040; A6197 ==

== ENCOUNTER 2022-01-27 09:40 | Outpatient (CLI) | payer MEDICARE, OTHER | END 2022-01-27 23:59 | disposition home health service (06) | LOC: WOU 09:40 | PROVIDERS: ATTEND Podiatrist Foot & Ankle Surgery | DX: E11.621 Type 2 diabetes mellitus with foot ulcer (principal); L97.413 Non-pressure chronic ulcer of right heel and midfoot with necrosis of muscle; E11.42 Type 2 diabetes mellitus with diabetic polyneuropathy; E11.69 Type 2 diabetes mellitus with other specified complication; M86.671 Other chronic osteomyelitis, right ankle and foot; B35.1 Tinea unguium; M25.571 Pain in right ankle and joints of right foot; Z79.4 Long term (current) use of insulin; Z79.84 Long term (current) use of oral hypoglycemic drugs | CPT/HCPCS: 11043; J7040 ==

== ENCOUNTER 2022-02-03 09:30 | Outpatient (CLI) | payer MEDICARE, OTHER ==
[2022-02-03] MEDS ORDERED: MUPIROCIN 2% CREAM 15 GM TUBE TP ONE (10:35)
== END 2022-02-03 23:59 | disposition home health service (06) ==
LOC: WOU 09:30
PROVIDERS: ATTEND Podiatrist Foot & Ankle Surgery
DX: E11.621 Type 2 diabetes mellitus with foot ulcer (principal); L97.413 Non-pressure chronic ulcer of right heel and midfoot with necrosis of muscle; S81.812A Laceration without foreign body, left lower leg, initial encounter; S81.811A Laceration without foreign body, right lower leg, initial encounter; X58.XXXA Exposure to other specified factors, initial encounter; Y92.89 Other specified places as the place of occurrence of the external cause; E11.42 Type 2 diabetes mellitus with diabetic polyneuropathy; E11.69 Type 2 diabetes mellitus with other specified complication; M86.671 Other chronic osteomyelitis, right ankle and foot; Z79.4 Long term (current) use of insulin; Z79.84 Long term (current) use of oral hypoglycemic drugs; B35.1 Tinea unguium; M25.571 Pain in right ankle and joints of right foot
CPT/HCPCS: 11043; J7040

== ENCOUNTER 2022-02-14 09:48 | Outpatient (CLI) | payer MEDICARE, OTHER | END 2022-02-14 23:59 | disposition home or self-care (01) | LOC: WOU 09:48 | PROVIDERS: ATTEND Podiatrist Foot & Ankle Surgery | DX: E11.621 Type 2 diabetes mellitus with foot ulcer (principal); L97.413 Non-pressure chronic ulcer of right heel and midfoot with necrosis of muscle; S81.812D Laceration without foreign body, left lower leg, subsequent encounter; S81.811D Laceration without foreign body, right lower leg, subsequent encounter; X58.XXXD Exposure to other specified factors, subsequent encounter; E11.42 Type 2 diabetes mellitus with diabetic polyneuropathy; E11.69 Type 2 diabetes mellitus with other specified complication; M86.671 Other chronic osteomyelitis, right ankle and foot; Z79.4 Long term (current) use of insulin; Z79.84 Long term (current) use of oral hypoglycemic drugs; B35.1 Tinea unguium; M25.571 Pain in right ankle and joints of right foot | CPT/HCPCS: 11043; 87077; 87075; 87070; 87186 ×3; J7040; A6197 ==

== ENCOUNTER 2022-02-17 08:46 | Outpatient (CLI) | payer MEDICARE, OTHER | END 2022-02-17 23:59 | disposition home or self-care (01) | LOC: WOU 08:46 | PROVIDERS: ATTEND Podiatrist Foot & Ankle Surgery | DX: E11.621 Type 2 diabetes mellitus with foot ulcer (principal); L97.416 Non-pressure chronic ulcer of right heel and midfoot with bone involvement without evidence of necrosis; E11.622 Type 2 diabetes mellitus with other skin ulcer; L97.322 Non-pressure chronic ulcer of left ankle with fat layer exposed; Z79.4 Long term (current) use of insulin; Z79.84 Long term (current) use of oral hypoglycemic drugs; E11.42 Type 2 diabetes mellitus with diabetic polyneuropathy; E11.69 Type 2 diabetes mellitus with other specified complication; M86.671 Other chronic osteomyelitis, right ankle and foot; B35.1 Tinea unguium; M25.571 Pain in right ankle and joints of right foot; Z91.199 Patient's noncompliance with other medical treatment and regimen due to unspecified reason | CPT/HCPCS: 11043; 87077; 87075; 87070; 87186 ×3; J7040 ==

== ENCOUNTER 2022-02-21 11:00 | Outpatient (CLI) | payer MEDICARE, OTHER ==
[2022-02-21] MEDS ORDERED: DAKINS HALF STRENGTH (0.25%) 480 ML BOTTLE ONE (11:34)
[2022-02-21 12:18] LABS: BASOPHILS % (AUTO) 0.6 % (0.0-2.0); EOSINOPHILS % (AUTO) 2.3 % (0.0-6.0); HEMATOCRIT 39 % (39-51); HEMOGLOBIN 12.9 g/dL (13.5-17.5); LYMPHOCYTES # (AUTO) 1.5 K/uL (0.8-4.8); LYMPHOCYTES % (AUTO) 25.8 % (20.0-44.0); MEAN CORPUSCULAR HGB CONC 33 g/dl (31.0-36.0); MEAN CORPUSCULAR VOLUME 82 fL (80-96); MONOCYTES # (AUTO) 0.4 K/uL (0.1-1.30); NEUTROPHILS # (AUTO) 3.7 K/uL (1.8-8.9); NEUTROPHILS % (AUTO) 64.3 % (43.0-81.0); PLATELET COUNT (AUTO) 346 K/uL (150-450); RED BLOOD CELL COUNT(AUTO) 4.74 MIL/uL (4.5-6.0); WHITE BLOOD COUNT (AUTO) 5.8 K/uL (4.3-11.0)
[2022-02-21 12:38] LABS: PREALBUMIN 19.3 MG/DL (18.0-35.7)
[2022-02-21 12:50] LABS: C-REACTIVE PROTEIN 1.6 mg/dL (0.0-0.9)
[2022-02-21 15:11] LABS: ALBUMIN 3.1 g/dL (3.4-5.0)
== END 2022-02-21 23:59 | disposition home or self-care (01) ==
LOC: WOU 11:00
PROVIDERS: ATTEND Podiatrist Foot & Ankle Surgery
DX: E11.621 Type 2 diabetes mellitus with foot ulcer (principal); L97.413 Non-pressure chronic ulcer of right heel and midfoot with necrosis of muscle; E11.622 Type 2 diabetes mellitus with other skin ulcer; L97.322 Non-pressure chronic ulcer of left ankle with fat layer exposed; Z79.4 Long term (current) use of insulin; Z79.84 Long term (current) use of oral hypoglycemic drugs; E11.42 Type 2 diabetes mellitus with diabetic polyneuropathy; E11.69 Type 2 diabetes mellitus with other specified complication; M86.671 Other chronic osteomyelitis, right ankle and foot; M25.571 Pain in right ankle and joints of right foot; B35.1 Tinea unguium
CPT/HCPCS: 11043; 82040; 84145; 85025; 83036; 85652; 36415; 84134; 86140; J7040; A6197

== ENCOUNTER 2022-02-24 10:00 | Outpatient (CLI) | payer MEDICARE, OTHER | END 2022-02-24 23:59 | disposition home or self-care (01) | LOC: WOU 10:00 | PROVIDERS: ATTEND Podiatrist Foot & Ankle Surgery | DX: E11.621 Type 2 diabetes mellitus with foot ulcer (principal); E11.622 Type 2 diabetes mellitus with other skin ulcer; L97.416 Non-pressure chronic ulcer of right heel and midfoot with bone involvement without evidence of necrosis; L97.322 Non-pressure chronic ulcer of left ankle with fat layer exposed; Z79.4 Long term (current) use of insulin; Z79.84 Long term (current) use of oral hypoglycemic drugs; E11.42 Type 2 diabetes mellitus with diabetic polyneuropathy; M86.671 Other chronic osteomyelitis, right ankle and foot; B35.1 Tinea unguium; M25.571 Pain in right ankle and joints of right foot; Z91.199 Patient's noncompliance with other medical treatment and regimen due to unspecified reason; B96.89 Other specified bacterial agents as the cause of diseases classified elsewhere | CPT/HCPCS: 11043; 11042; J7040; A6197 ==

== ENCOUNTER 2022-02-28 09:30 | Outpatient (CLI) | payer MEDICARE, OTHER | END 2022-02-28 23:59 | disposition home or self-care (01) | LOC: WOU 09:30 | PROVIDERS: ATTEND Podiatrist Foot & Ankle Surgery | DX: E11.621 Type 2 diabetes mellitus with foot ulcer (principal); L97.416 Non-pressure chronic ulcer of right heel and midfoot with bone involvement without evidence of necrosis; E11.622 Type 2 diabetes mellitus with other skin ulcer; L97.322 Non-pressure chronic ulcer of left ankle with fat layer exposed; Z79.4 Long term (current) use of insulin; Z79.84 Long term (current) use of oral hypoglycemic drugs; E11.42 Type 2 diabetes mellitus with diabetic polyneuropathy; E11.69 Type 2 diabetes mellitus with other specified complication; M86.671 Other chronic osteomyelitis, right ankle and foot; B35.1 Tinea unguium; M25.571 Pain in right ankle and joints of right foot | CPT/HCPCS: 11043; 11042; 97605; J7040; A6197 ==

== ENCOUNTER 2022-03-03 09:48 | Outpatient (CLI) | payer MEDICARE, OTHER | END 2022-03-03 23:59 | disposition home or self-care (01) | LOC: WOU 09:48 | PROVIDERS: ATTEND Podiatrist Foot & Ankle Surgery | DX: E11.621 Type 2 diabetes mellitus with foot ulcer (principal); E11.622 Type 2 diabetes mellitus with other skin ulcer; L97.322 Non-pressure chronic ulcer of left ankle with fat layer exposed; L97.416 Non-pressure chronic ulcer of right heel and midfoot with bone involvement without evidence of necrosis; E11.42 Type 2 diabetes mellitus with diabetic polyneuropathy; E11.69 Type 2 diabetes mellitus with other specified complication; M86.671 Other chronic osteomyelitis, right ankle and foot; M25.571 Pain in right ankle and joints of right foot; B35.1 Tinea unguium; Z79.4 Long term (current) use of insulin; Z79.84 Long term (current) use of oral hypoglycemic drugs | CPT/HCPCS: 11043; 11042; 97605; J7040 ==

== ENCOUNTER 2022-03-07 09:10 | Outpatient (CLI) | payer MEDICARE, OTHER | END 2022-03-07 23:59 | disposition home or self-care (01) | LOC: WOU 09:10 | PROVIDERS: ATTEND Podiatrist Foot & Ankle Surgery | DX: E11.621 Type 2 diabetes mellitus with foot ulcer (principal); E11.622 Type 2 diabetes mellitus with other skin ulcer; L97.416 Non-pressure chronic ulcer of right heel and midfoot with bone involvement without evidence of necrosis; L97.322 Non-pressure chronic ulcer of left ankle with fat layer exposed; E11.42 Type 2 diabetes mellitus with diabetic polyneuropathy; E11.69 Type 2 diabetes mellitus with other specified complication; M86.671 Other chronic osteomyelitis, right ankle and foot; B35.1 Tinea unguium; M25.571 Pain in right ankle and joints of right foot; Z79.4 Long term (current) use of insulin; Z79.84 Long term (current) use of oral hypoglycemic drugs | CPT/HCPCS: 11043; 11042; 87077; 87075; 87070; 87186 ×3; J7040; A6197 ==

== ENCOUNTER 2022-03-07 09:47 | Outpatient (CLI) | payer MEDICARE, OTHER | END 2022-03-07 23:59 | disposition home or self-care (01) | LOC: MRI 09:47 | PROVIDERS: ATTEND Podiatrist Foot & Ankle Surgery | DX: E11.621 Type 2 diabetes mellitus with foot ulcer (principal); L97.319 Non-pressure chronic ulcer of right ankle with unspecified severity; M86.8X7 Other osteomyelitis, ankle and foot | CPT/HCPCS: 73721-TC ==

== ENCOUNTER 2022-03-10 08:52 | Outpatient (CLI) | payer MEDICARE, OTHER | END 2022-03-10 23:59 | disposition home or self-care (01) | LOC: WOU 08:52 | PROVIDERS: ATTEND Podiatrist Foot & Ankle Surgery | DX: E11.621 Type 2 diabetes mellitus with foot ulcer (principal); L97.416 Non-pressure chronic ulcer of right heel and midfoot with bone involvement without evidence of necrosis; E11.622 Type 2 diabetes mellitus with other skin ulcer; L97.322 Non-pressure chronic ulcer of left ankle with fat layer exposed; E11.42 Type 2 diabetes mellitus with diabetic polyneuropathy; E11.69 Type 2 diabetes mellitus with other specified complication; M86.671 Other chronic osteomyelitis, right ankle and foot; M25.571 Pain in right ankle and joints of right foot; Z79.4 Long term (current) use of insulin; Z79.84 Long term (current) use of oral hypoglycemic drugs | CPT/HCPCS: 11043; 11042; 97605; J7040 ==

== ENCOUNTER 2022-03-17 09:24 | Outpatient (CLI) | payer MEDICARE, OTHER | END 2022-03-17 23:59 | disposition home or self-care (01) | LOC: WOU 09:24 | PROVIDERS: ATTEND Podiatrist Foot & Ankle Surgery | DX: E11.621 Type 2 diabetes mellitus with foot ulcer (principal); L97.412 Non-pressure chronic ulcer of right heel and midfoot with fat layer exposed; E11.622 Type 2 diabetes mellitus with other skin ulcer; L97.322 Non-pressure chronic ulcer of left ankle with fat layer exposed; Z79.4 Long term (current) use of insulin; Z79.84 Long term (current) use of oral hypoglycemic drugs; E11.42 Type 2 diabetes mellitus with diabetic polyneuropathy; E11.69 Type 2 diabetes mellitus with other specified complication; M86.671 Other chronic osteomyelitis, right ankle and foot; M25.571 Pain in right ankle and joints of right foot; B35.1 Tinea unguium ==

== ENCOUNTER 2022-03-21 09:11 | Outpatient (CLI) | payer MEDICARE, OTHER ==
[2022-03-21] MEDS ORDERED: HYDROCORTISONE 1% CREAM 28.35 GM TUBE TP ONE (09:27)
== END 2022-03-21 23:59 | disposition home or self-care (01) ==
LOC: WOU 09:11
PROVIDERS: ATTEND Podiatrist Foot & Ankle Surgery
DX: E11.621 Type 2 diabetes mellitus with foot ulcer (principal); E11.622 Type 2 diabetes mellitus with other skin ulcer; L97.412 Non-pressure chronic ulcer of right heel and midfoot with fat layer exposed; L97.322 Non-pressure chronic ulcer of left ankle with fat layer exposed; Z79.4 Long term (current) use of insulin; Z79.84 Long term (current) use of oral hypoglycemic drugs; E11.69 Type 2 diabetes mellitus with other specified complication; E11.42 Type 2 diabetes mellitus with diabetic polyneuropathy; M86.671 Other chronic osteomyelitis, right ankle and foot; B96.20 Unspecified Escherichia coli [E. coli] as the cause of diseases classified elsewhere; T81.89XD Other complications of procedures, not elsewhere classified, subsequent encounter; M25.571 Pain in right ankle and joints of right foot; B35.1 Tinea unguium

== ENCOUNTER 2022-03-22 12:44 | Outpatient (CLI) | payer MEDICARE, OTHER ==
[2022-03-22] MEDS ORDERED: GENTAMICIN 0.1% CREAM 15 GM TUBE ONE (14:00)
== END 2022-03-22 23:59 | disposition home or self-care (01) ==
LOC: WOU 12:44
PROVIDERS: ATTEND Podiatrist Foot & Ankle Surgery
DX: E11.621 Type 2 diabetes mellitus with foot ulcer (principal); E11.622 Type 2 diabetes mellitus with other skin ulcer; L97.412 Non-pressure chronic ulcer of right heel and midfoot with fat layer exposed; L97.322 Non-pressure chronic ulcer of left ankle with fat layer exposed; Z79.4 Long term (current) use of insulin; Z79.84 Long term (current) use of oral hypoglycemic drugs; T81.89XD Other complications of procedures, not elsewhere classified, subsequent encounter; E11.42 Type 2 diabetes mellitus with diabetic polyneuropathy; E11.69 Type 2 diabetes mellitus with other specified complication; M86.671 Other chronic osteomyelitis, right ankle and foot; M25.571 Pain in right ankle and joints of right foot; B96.20 Unspecified Escherichia coli [E. coli] as the cause of diseases classified elsewhere

== ENCOUNTER 2022-03-28 09:57 | Outpatient (CLI) | payer MEDICARE, OTHER ==
[~2022-03-28 09:57] MED LIST changes: +HYDROCORTISONE 1% CREAM 28.35 GM TUBE TP ONE; +UREA 10% -AHA 4% CREAM 57 GM TUBE ONE
[2022-03-28 11:29] LABS: HEMATOCRIT 36 % (39-51); HEMOGLOBIN 12.1 g/dL (13.5-17.5); MEAN CORPUSCULAR HGB CONC 33 g/dl (31.0-36.0); MEAN CORPUSCULAR VOLUME 81 fL (80-96); PLATELET COUNT (AUTO) 386 K/uL (150-450); RED BLOOD CELL COUNT(AUTO) 4.46 MIL/uL (4.5-6.0); WHITE BLOOD COUNT (AUTO) 6.7 K/uL (4.3-11.0)
[2022-03-28 11:30] LABS: BASOPHILS % (AUTO) 0.4 % (0.0-2.0); EOSINOPHILS % (AUTO) 3.1 % (0.0-6.0); LYMPHOCYTES # (AUTO) 1.3 K/uL (0.8-4.8); MONOCYTES # (AUTO) 0.4 K/uL (0.1-1.30); MONOCYTES % (AUTO) 6.7 % (2.0-12.0); NEUTROPHILS # (AUTO) 4.7 K/uL (1.8-8.9); NEUTROPHILS % (AUTO) 69.8 % (43.0-81.0)
== END 2022-03-28 23:59 | disposition home or self-care (01) ==
LOC: WOU 09:57
PROVIDERS: ATTEND Podiatrist Foot & Ankle Surgery
DX: E11.621 Type 2 diabetes mellitus with foot ulcer (principal); E11.622 Type 2 diabetes mellitus with other skin ulcer; L97.412 Non-pressure chronic ulcer of right heel and midfoot with fat layer exposed; L97.322 Non-pressure chronic ulcer of left ankle with fat layer exposed; Z79.4 Long term (current) use of insulin; Z79.84 Long term (current) use of oral hypoglycemic drugs; T81.89XA Other complications of procedures, not elsewhere classified, initial encounter; E11.42 Type 2 diabetes mellitus with diabetic polyneuropathy; E11.69 Type 2 diabetes mellitus with other specified complication; M86.671 Other chronic osteomyelitis, right ankle and foot; B35.1 Tinea unguium
CPT/HCPCS: 11042; 87070; 87075; 11045; 84145; 85025; 85652; 36415; 86140; A6197

== ENCOUNTER 2022-03-31 09:23 | Outpatient (CLI) | payer MEDICARE, OTHER ==
[~2022-03-31 09:23] MED LIST changes: -HYDROCORTISONE 1% CREAM 28.35 GM TUBE TP ONE; -UREA 10% -AHA 4% CREAM 57 GM TUBE ONE
[2022-03-31] MEDS ORDERED: DAKINS HALF STRENGTH (0.25%) 480 ML BOTTLE ONE (10:06)
== END 2022-03-31 23:59 | disposition home or self-care (01) ==
LOC: WOU 09:23
PROVIDERS: ATTEND Podiatrist Foot & Ankle Surgery
DX: E11.621 Type 2 diabetes mellitus with foot ulcer (principal); E11.622 Type 2 diabetes mellitus with other skin ulcer; L97.412 Non-pressure chronic ulcer of right heel and midfoot with fat layer exposed; L97.328 Non-pressure chronic ulcer of left ankle with other specified severity; Z79.4 Long term (current) use of insulin; Z79.84 Long term (current) use of oral hypoglycemic drugs; E11.42 Type 2 diabetes mellitus with diabetic polyneuropathy; E11.69 Type 2 diabetes mellitus with other specified complication; M86.671 Other chronic osteomyelitis, right ankle and foot; T81.89XD Other complications of procedures, not elsewhere classified, subsequent encounter; B35.1 Tinea unguium; M25.571 Pain in right ankle and joints of right foot; Z91.199 Patient's noncompliance with other medical treatment and regimen due to unspecified reason
CPT/HCPCS: G0463; A6197

== ENCOUNTER 2022-04-04 09:10 | Outpatient (CLI) | payer MEDICARE, OTHER ==
[2022-04-04] MEDS ORDERED: GENTAMICIN 0.1% CREAM 15 GM TUBE ONE (10:31)
== END 2022-04-04 23:59 | disposition home or self-care (01) ==
LOC: WOU 09:10
PROVIDERS: ATTEND Podiatrist Foot & Ankle Surgery
DX: E11.621 Type 2 diabetes mellitus with foot ulcer (principal); E11.622 Type 2 diabetes mellitus with other skin ulcer; L97.415 Non-pressure chronic ulcer of right heel and midfoot with muscle involvement without evidence of necrosis; L97.328 Non-pressure chronic ulcer of left ankle with other specified severity; Z79.4 Long term (current) use of insulin; Z79.84 Long term (current) use of oral hypoglycemic drugs; T81.89XA Other complications of procedures, not elsewhere classified, initial encounter; E11.42 Type 2 diabetes mellitus with diabetic polyneuropathy; E11.69 Type 2 diabetes mellitus with other specified complication; M86.671 Other chronic osteomyelitis, right ankle and foot; B35.1 Tinea unguium; M25.571 Pain in right ankle and joints of right foot
CPT/HCPCS: 11043; 87070; 87075; 11046; A6197

== ENCOUNTER 2022-04-07 09:15 | Outpatient (CLI) | payer MEDICARE, OTHER | END 2022-04-07 23:59 | disposition home or self-care (01) | LOC: WOU 09:15 | PROVIDERS: ATTEND Podiatrist Foot & Ankle Surgery | DX: E11.621 Type 2 diabetes mellitus with foot ulcer (principal); L97.414 Non-pressure chronic ulcer of right heel and midfoot with necrosis of bone; E11.42 Type 2 diabetes mellitus with diabetic polyneuropathy; E11.69 Type 2 diabetes mellitus with other specified complication; M86.671 Other chronic osteomyelitis, right ankle and foot; B35.1 Tinea unguium; M25.571 Pain in right ankle and joints of right foot; Z79.4 Long term (current) use of insulin; Z79.84 Long term (current) use of oral hypoglycemic drugs | CPT/HCPCS: 11043; 11046; 82962; A6197 ==

== ENCOUNTER 2022-04-11 09:51 | Outpatient (CLI) | payer MEDICARE, OTHER | END 2022-04-11 23:59 | disposition home or self-care (01) | LOC: WOU 09:51 | PROVIDERS: ATTEND Podiatrist Foot & Ankle Surgery | DX: E11.621 Type 2 diabetes mellitus with foot ulcer (principal); L97.414 Non-pressure chronic ulcer of right heel and midfoot with necrosis of bone; E11.42 Type 2 diabetes mellitus with diabetic polyneuropathy; E11.69 Type 2 diabetes mellitus with other specified complication; M86.671 Other chronic osteomyelitis, right ankle and foot; Z79.4 Long term (current) use of insulin; Z79.84 Long term (current) use of oral hypoglycemic drugs; M25.571 Pain in right ankle and joints of right foot | CPT/HCPCS: 11043; 11046; A6197 ×2; 11044; 11047 ==

== ENCOUNTER 2022-04-19 14:04 | Outpatient (CLI) | payer MEDICARE, OTHER | END 2022-04-19 23:59 | disposition home or self-care (01) | LOC: WOU 14:04 | PROVIDERS: ATTEND Podiatrist Foot & Ankle Surgery | DX: E11.621 Type 2 diabetes mellitus with foot ulcer (principal); L97.413 Non-pressure chronic ulcer of right heel and midfoot with necrosis of muscle; E11.42 Type 2 diabetes mellitus with diabetic polyneuropathy; E11.69 Type 2 diabetes mellitus with other specified complication; M86.671 Other chronic osteomyelitis, right ankle and foot; Z79.4 Long term (current) use of insulin; Z79.84 Long term (current) use of oral hypoglycemic drugs; M25.571 Pain in right ankle and joints of right foot; B35.1 Tinea unguium; Z91.198 Patient's noncompliance with other medical treatment and regimen for other reason | CPT/HCPCS: 11043; 87070; 87075; 11046; A6197 ==

== ENCOUNTER 2022-04-25 09:30 | Outpatient (CLI) | payer MEDICARE, OTHER ==
[2022-04-25] MEDS ORDERED: COLLAGENASE 5 GM TUBE UD TP ONE (09:58)
== END 2022-04-25 23:59 | disposition home or self-care (01) ==
LOC: WOU 09:30
PROVIDERS: ATTEND Podiatrist Foot & Ankle Surgery
DX: E11.621 Type 2 diabetes mellitus with foot ulcer (principal); L97.413 Non-pressure chronic ulcer of right heel and midfoot with necrosis of muscle; L08.9 Local infection of the skin and subcutaneous tissue, unspecified; B96.4 Proteus (mirabilis) (morganii) as the cause of diseases classified elsewhere; E11.42 Type 2 diabetes mellitus with diabetic polyneuropathy; E11.69 Type 2 diabetes mellitus with other specified complication; M86.671 Other chronic osteomyelitis, right ankle and foot; B35.1 Tinea unguium; M25.571 Pain in right ankle and joints of right foot; Z91.198 Patient's noncompliance with other medical treatment and regimen for other reason; Z79.4 Long term (current) use of insulin; Z79.84 Long term (current) use of oral hypoglycemic drugs
CPT/HCPCS: 11043; A6197

== ENCOUNTER 2022-04-28 09:53 | Outpatient (CLI) | payer MEDICARE, OTHER ==
[2022-04-28] MEDS ORDERED: COLLAGENASE 5 GM TUBE UD TP ONE (10:26)
== END 2022-04-28 23:59 | disposition home or self-care (01) ==
LOC: WOU 09:53
PROVIDERS: ATTEND Podiatrist Foot & Ankle Surgery
DX: E11.621 Type 2 diabetes mellitus with foot ulcer (principal); L97.416 Non-pressure chronic ulcer of right heel and midfoot with bone involvement without evidence of necrosis; E11.42 Type 2 diabetes mellitus with diabetic polyneuropathy; E11.69 Type 2 diabetes mellitus with other specified complication; M86.671 Other chronic osteomyelitis, right ankle and foot; B35.1 Tinea unguium; M25.571 Pain in right ankle and joints of right foot; Z91.198 Patient's noncompliance with other medical treatment and regimen for other reason; Z79.4 Long term (current) use of insulin; Z79.84 Long term (current) use of oral hypoglycemic drugs
CPT/HCPCS: 11043; 11046; A6197

== ENCOUNTER 2022-05-02 09:47 | Outpatient (CLI) | payer MEDICARE, OTHER ==
[2022-05-02] MEDS ORDERED: COLLAGENASE 5 GM TUBE UD TP ONE ×2 (10:04→10:53)
== END 2022-05-02 23:59 | disposition home or self-care (01) ==
LOC: WOU 09:47
PROVIDERS: ATTEND Podiatrist Foot & Ankle Surgery
DX: E11.621 Type 2 diabetes mellitus with foot ulcer (principal); L97.416 Non-pressure chronic ulcer of right heel and midfoot with bone involvement without evidence of necrosis; E11.42 Type 2 diabetes mellitus with diabetic polyneuropathy; E11.69 Type 2 diabetes mellitus with other specified complication; M86.671 Other chronic osteomyelitis, right ankle and foot; B96.4 Proteus (mirabilis) (morganii) as the cause of diseases classified elsewhere; Z79.4 Long term (current) use of insulin; Z79.84 Long term (current) use of oral hypoglycemic drugs; B35.1 Tinea unguium; L84 Corns and callosities; M25.571 Pain in right ankle and joints of right foot
CPT/HCPCS: 11043; 11046; A6197

== ENCOUNTER 2022-05-05 09:45 | Outpatient (CLI) | payer MEDICARE, OTHER ==
[2022-05-05] MEDS ORDERED: COLLAGENASE 5 GM TUBE UD TP ONE (10:03)
[2022-05-05 11:07] LABS: BASOPHILS % (AUTO) 0.4 % (0.0-2.0); EOSINOPHILS % (AUTO) 2.3 % (0.0-6.0); HEMATOCRIT 39 % (39-51); HEMOGLOBIN 12.7 g/dL (13.5-17.5); LYMPHOCYTES % (AUTO) 18.8 % (20.0-44.0); MEAN CORPUSCULAR HGB CONC 33 g/dl (31.0-36.0); MEAN CORPUSCULAR VOLUME 79 fL (80-96); MONOCYTES % (AUTO) 5.3 % (2.0-12.0); NEUTROPHILS % (AUTO) 73.2 % (43.0-81.0); RED BLOOD CELL COUNT(AUTO) 4.93 MIL/uL (4.5-6.0)
[2022-05-05 23:36] LABS: PLATELET COUNT (AUTO) 378 K/uL (150-450)
== END 2022-05-05 23:59 | disposition home or self-care (01) ==
LOC: WOU 09:45
PROVIDERS: ATTEND Podiatrist Foot & Ankle Surgery
DX: E11.621 Type 2 diabetes mellitus with foot ulcer (principal); L97.416 Non-pressure chronic ulcer of right heel and midfoot with bone involvement without evidence of necrosis; E11.69 Type 2 diabetes mellitus with other specified complication; E11.42 Type 2 diabetes mellitus with diabetic polyneuropathy; M86.671 Other chronic osteomyelitis, right ankle and foot; E11.65 Type 2 diabetes mellitus with hyperglycemia; Z79.4 Long term (current) use of insulin; Z79.84 Long term (current) use of oral hypoglycemic drugs; B35.1 Tinea unguium; M25.571 Pain in right ankle and joints of right foot
CPT/HCPCS: 11043; 87070; 87075; 11046; 73630; 82040; 84145; 85025; 83036; 85652; 36415; A6197

== ENCOUNTER 2022-05-10 13:16 | Outpatient (CLI) | payer MEDICARE, OTHER ==
[2022-05-10] MEDS ORDERED: COLLAGENASE 5 GM TUBE UD TP ONE (13:27)
== END 2022-05-10 23:59 | disposition home or self-care (01) ==
LOC: WOU 13:16
PROVIDERS: ATTEND Podiatrist Foot & Ankle Surgery
DX: E11.621 Type 2 diabetes mellitus with foot ulcer (principal); L97.416 Non-pressure chronic ulcer of right heel and midfoot with bone involvement without evidence of necrosis; E11.42 Type 2 diabetes mellitus with diabetic polyneuropathy; E11.69 Type 2 diabetes mellitus with other specified complication; E11.65 Type 2 diabetes mellitus with hyperglycemia; Z79.4 Long term (current) use of insulin; Z79.84 Long term (current) use of oral hypoglycemic drugs; M79.671 Pain in right foot; M25.571 Pain in right ankle and joints of right foot
CPT/HCPCS: 11043; 11046; A6197

== ENCOUNTER 2022-05-12 10:02 | Outpatient (CLI) | payer MEDICARE, OTHER ==
[2022-05-12] MEDS ORDERED: COLLAGENASE 5 GM TUBE UD TP ONE (10:07)
== END 2022-05-12 23:59 | disposition home or self-care (01) ==
LOC: WOU 10:02
PROVIDERS: ATTEND Podiatrist Foot & Ankle Surgery
DX: E11.621 Type 2 diabetes mellitus with foot ulcer (principal); L97.416 Non-pressure chronic ulcer of right heel and midfoot with bone involvement without evidence of necrosis; E11.65 Type 2 diabetes mellitus with hyperglycemia; E11.69 Type 2 diabetes mellitus with other specified complication; E11.42 Type 2 diabetes mellitus with diabetic polyneuropathy; M86.671 Other chronic osteomyelitis, right ankle and foot; Z79.4 Long term (current) use of insulin; Z79.84 Long term (current) use of oral hypoglycemic drugs; B35.1 Tinea unguium
CPT/HCPCS: 11043; 11046; A6197

== ENCOUNTER 2022-05-16 10:44 | Outpatient (CLI) | payer MEDICARE, OTHER ==
[2022-05-16] MEDS ORDERED: COLLAGENASE 5 GM TUBE UD TP ONE (10:50)
== END 2022-05-16 23:59 | disposition home or self-care (01) ==
LOC: WOU 10:44
PROVIDERS: ATTEND Podiatrist Foot & Ankle Surgery
DX: E11.621 Type 2 diabetes mellitus with foot ulcer (principal); L97.416 Non-pressure chronic ulcer of right heel and midfoot with bone involvement without evidence of necrosis; E11.69 Type 2 diabetes mellitus with other specified complication; E11.42 Type 2 diabetes mellitus with diabetic polyneuropathy; M86.671 Other chronic osteomyelitis, right ankle and foot; B35.1 Tinea unguium; M25.571 Pain in right ankle and joints of right foot; Z79.4 Long term (current) use of insulin; Z79.84 Long term (current) use of oral hypoglycemic drugs
CPT/HCPCS: 11043; 11046; A6197

== ENCOUNTER 2022-05-16 10:52 | Outpatient (CLI) | payer MEDICARE, OTHER ==
[2022-05-16 12:03] LABS: BASOPHILS % (AUTO) 0.4 % (0.0-2.0); EOSINOPHILS % (AUTO) 2.6 % (0.0-6.0); HEMATOCRIT 39 % (39-51); HEMOGLOBIN 12.7 g/dL (13.5-17.5); LYMPHOCYTES # (AUTO) 1.3 K/uL (0.8-4.8); LYMPHOCYTES % (AUTO) 20.1 % (20.0-44.0); MEAN CORPUSCULAR HGB CONC 32 g/dl (31.0-36.0); MEAN CORPUSCULAR VOLUME 78 fL (80-96); MONOCYTES # (AUTO) 0.4 K/uL (0.1-1.30); MONOCYTES % (AUTO) 5.9 % (2.0-12.0); NEUTROPHILS # (AUTO) 4.8 K/uL (1.8-8.9); PLATELET COUNT (AUTO) 356 K/uL (150-450); WHITE BLOOD COUNT (AUTO) 6.7 K/uL (4.3-11.0)
== END 2022-05-16 23:59 | disposition home or self-care (01) ==
LOC: LAB 10:52
DX: M86.9 Osteomyelitis, unspecified (principal); L98.9 Disorder of the skin and subcutaneous tissue, unspecified
CPT/HCPCS: 36415; 85025-TC; 85652-TC; 86140-TC

== ENCOUNTER 2022-05-19 09:44 | Outpatient (CLI) | payer MEDICARE, OTHER ==
[2022-05-19] MEDS ORDERED: COLLAGENASE 5 GM TUBE UD TP ONE (10:00)
== END 2022-05-19 23:59 | disposition home or self-care (01) ==
LOC: WOU 09:44
PROVIDERS: ATTEND Podiatrist Foot & Ankle Surgery
DX: E11.621 Type 2 diabetes mellitus with foot ulcer (principal); L97.415 Non-pressure chronic ulcer of right heel and midfoot with muscle involvement without evidence of necrosis; E11.42 Type 2 diabetes mellitus with diabetic polyneuropathy; E11.69 Type 2 diabetes mellitus with other specified complication; E11.65 Type 2 diabetes mellitus with hyperglycemia; M86.671 Other chronic osteomyelitis, right ankle and foot; B35.1 Tinea unguium; M25.571 Pain in right ankle and joints of right foot; Z79.4 Long term (current) use of insulin; Z79.84 Long term (current) use of oral hypoglycemic drugs
CPT/HCPCS: 11043; 11046; A6197

== ENCOUNTER 2022-05-23 10:43 | Outpatient (CLI) | payer MEDICARE, OTHER ==
[2022-05-23] MEDS ORDERED: COLLAGENASE 5 GM TUBE UD TP ONE (11:10)
== END 2022-05-23 23:59 | disposition home or self-care (01) ==
LOC: WOU 10:43
PROVIDERS: ATTEND Podiatrist Foot & Ankle Surgery
DX: E11.621 Type 2 diabetes mellitus with foot ulcer (principal); L97.416 Non-pressure chronic ulcer of right heel and midfoot with bone involvement without evidence of necrosis; E11.42 Type 2 diabetes mellitus with diabetic polyneuropathy; E11.69 Type 2 diabetes mellitus with other specified complication; M86.671 Other chronic osteomyelitis, right ankle and foot; B96.1 Klebsiella pneumoniae [K. pneumoniae] as the cause of diseases classified elsewhere; B96.20 Unspecified Escherichia coli [E. coli] as the cause of diseases classified elsewhere; Z79.4 Long term (current) use of insulin; Z79.84 Long term (current) use of oral hypoglycemic drugs; B35.1 Tinea unguium
CPT/HCPCS: 11043; 11046; A6197

== ENCOUNTER 2022-05-26 08:45 | Outpatient (CLI) | payer MEDICARE, OTHER ==
[2022-05-26] MEDS ORDERED: COLLAGENASE 5 GM TUBE UD TP ONE (09:11)
== END 2022-05-26 23:59 | disposition home or self-care (01) ==
LOC: WOU 08:45
PROVIDERS: ATTEND Podiatrist Foot & Ankle Surgery
DX: E11.621 Type 2 diabetes mellitus with foot ulcer (principal); L97.416 Non-pressure chronic ulcer of right heel and midfoot with bone involvement without evidence of necrosis; E11.42 Type 2 diabetes mellitus with diabetic polyneuropathy; E11.65 Type 2 diabetes mellitus with hyperglycemia; E11.69 Type 2 diabetes mellitus with other specified complication; M86.671 Other chronic osteomyelitis, right ankle and foot; B35.1 Tinea unguium; M25.571 Pain in right ankle and joints of right foot; Z79.4 Long term (current) use of insulin; Z79.84 Long term (current) use of oral hypoglycemic drugs
CPT/HCPCS: 11043

== ENCOUNTER 2022-05-30 09:27 | Outpatient (CLI) | payer MEDICARE, OTHER ==
[2022-05-30] MEDS ORDERED: COLLAGENASE 5 GM TUBE UD TP ONE (09:46)
== END 2022-05-30 23:59 | disposition home or self-care (01) ==
LOC: WOU 09:27
PROVIDERS: ATTEND Podiatrist Foot & Ankle Surgery
DX: E11.621 Type 2 diabetes mellitus with foot ulcer (principal); L97.413 Non-pressure chronic ulcer of right heel and midfoot with necrosis of muscle; E11.42 Type 2 diabetes mellitus with diabetic polyneuropathy; E11.69 Type 2 diabetes mellitus with other specified complication; M86.671 Other chronic osteomyelitis, right ankle and foot; Z79.4 Long term (current) use of insulin; Z79.84 Long term (current) use of oral hypoglycemic drugs; B35.1 Tinea unguium; M25.571 Pain in right ankle and joints of right foot
CPT/HCPCS: 11043; A6197

== ENCOUNTER 2022-06-02 10:20 | Outpatient (CLI) | payer MEDICARE, OTHER ==
[~2022-06-02 10:20] MED LIST changes: +COLLAGENASE 5 GM TUBE UD TP ONE
== END 2022-06-02 23:59 | disposition home or self-care (01) ==
LOC: WOU 10:20
PROVIDERS: ATTEND Podiatrist Foot & Ankle Surgery
DX: E11.621 Type 2 diabetes mellitus with foot ulcer (principal); L97.416 Non-pressure chronic ulcer of right heel and midfoot with bone involvement without evidence of necrosis; E11.42 Type 2 diabetes mellitus with diabetic polyneuropathy; E11.69 Type 2 diabetes mellitus with other specified complication; E11.65 Type 2 diabetes mellitus with hyperglycemia; M86.671 Other chronic osteomyelitis, right ankle and foot; B96.7 Clostridium perfringens [C. perfringens] as the cause of diseases classified elsewhere; B96.1 Klebsiella pneumoniae [K. pneumoniae] as the cause of diseases classified elsewhere; B96.20 Unspecified Escherichia coli [E. coli] as the cause of diseases classified elsewhere; Z79.4 Long term (current) use of insulin; Z79.84 Long term (current) use of oral hypoglycemic drugs
CPT/HCPCS: 11043; A6197

== ENCOUNTER 2022-06-13 09:34 | Outpatient (CLI) | payer MEDICARE, OTHER ==
[~2022-06-13 09:34] MED LIST changes: -COLLAGENASE 5 GM TUBE UD TP ONE
[2022-06-13] MEDS ORDERED: COLLAGENASE 5 GM TUBE UD TP ONE (10:00)
== END 2022-06-13 23:59 ==
LOC: WOU 09:34
PROVIDERS: ATTEND Podiatrist Foot & Ankle Surgery
DX: E11.621 Type 2 diabetes mellitus with foot ulcer (principal); L97.416 Non-pressure chronic ulcer of right heel and midfoot with bone involvement without evidence of necrosis; E11.42 Type 2 diabetes mellitus with diabetic polyneuropathy; E11.65 Type 2 diabetes mellitus with hyperglycemia; E11.69 Type 2 diabetes mellitus with other specified complication; M86.671 Other chronic osteomyelitis, right ankle and foot; Z79.4 Long term (current) use of insulin; Z79.84 Long term (current) use of oral hypoglycemic drugs; S92.001B Unspecified fracture of right calcaneus, initial encounter for open fracture; W19.XXXA Unspecified fall, initial encounter; Y92.89 Other specified places as the place of occurrence of the external cause; B35.1 Tinea unguium
CPT/HCPCS: 11043

== ENCOUNTER 2022-06-16 10:17 | Outpatient (CLI) | payer MEDICARE, OTHER | END 2022-06-16 23:59 | LOC: WOU 10:17 | PROVIDERS: ATTEND Podiatrist Foot & Ankle Surgery | DX: E11.621 Type 2 diabetes mellitus with foot ulcer (principal); L97.414 Non-pressure chronic ulcer of right heel and midfoot with necrosis of bone; E11.42 Type 2 diabetes mellitus with diabetic polyneuropathy; E11.69 Type 2 diabetes mellitus with other specified complication; M86.671 Other chronic osteomyelitis, right ankle and foot; B96.1 Klebsiella pneumoniae [K. pneumoniae] as the cause of diseases classified elsewhere; B96.20 Unspecified Escherichia coli [E. coli] as the cause of diseases classified elsewhere; Z79.4 Long term (current) use of insulin; Z79.84 Long term (current) use of oral hypoglycemic drugs; S92.001G Unspecified fracture of right calcaneus, subsequent encounter for fracture with delayed healing; W19.XXXD Unspecified fall, subsequent encounter; M25.571 Pain in right ankle and joints of right foot; B35.1 Tinea unguium | CPT/HCPCS: 87070; 87075; G0463 ==

== ENCOUNTER 2023-09-25 10:44 | Outpatient (CLI) | payer MEDICARE, OTHER | END 2023-09-25 23:59 | disposition home or self-care (01) | LOC: MSC 10:44 | PROVIDERS: ATTEND Internal Medicine | DX: Z01.818 Encounter for other preprocedural examination (principal); E11.621 Type 2 diabetes mellitus with foot ulcer; L97.519 Non-pressure chronic ulcer of other part of right foot with unspecified severity; E11.40 Type 2 diabetes mellitus with diabetic neuropathy, unspecified; E11.319 Type 2 diabetes mellitus with unspecified diabetic retinopathy without macular edema; Z79.4 Long term (current) use of insulin; Z79.84 Long term (current) use of oral hypoglycemic drugs; I25.10 Atherosclerotic heart disease of native coronary artery without angina pectoris; M54.50 Low back pain, unspecified; M54.6 Pain in thoracic spine; V59.9XXA Occupant (driver) (passenger) of pick-up truck or van injured in unspecified traffic accident, initial encounter; M25.511 Pain in right shoulder | CPT/HCPCS: 72100; 72074; G0463 ==

== ENCOUNTER 2025-03-31 11:13 | Outpatient (CLI) | payer MEDICARE, OTHER | END 2025-03-31 23:59 | disposition home health service (06) | LOC: WOU 11:13 | PROVIDERS: ATTEND Podiatrist Foot & Ankle Surgery | DX: E11.621 Type 2 diabetes mellitus with foot ulcer (principal); L97.515 Non-pressure chronic ulcer of other part of right foot with muscle involvement without evidence of necrosis; E11.42 Type 2 diabetes mellitus with diabetic polyneuropathy; E11.69 Type 2 diabetes mellitus with other specified complication; M86.671 Other chronic osteomyelitis, right ankle and foot; M25.571 Pain in right ankle and joints of right foot; E11.610 Type 2 diabetes mellitus with diabetic neuropathic arthropathy; Z79.4 Long term (current) use of insulin; Z79.84 Long term (current) use of oral hypoglycemic drugs; B35.1 Tinea unguium | CPT/HCPCS: 11042; 11045; A6253; A6197 ==